=== PATIENT | female | born 1940 | race Caucasian/White ===

== ENCOUNTER → 2018-05-20 12:49 | Outpatient (CLI) | payer MEDICARE, SELFPAY | PROVIDERS: Family Provider Internal Medicine; PCP Internal Medicine; Referring Provider Internal Medicine Cardiovascular Disease; Visit Provider Internal Medicine Cardiovascular Disease | DX: I48.0 Paroxysmal atrial fibrillation (principal); I48.92 Unspecified atrial flutter | CPT/HCPCS: 93225; 93226 ==

== ENCOUNTER 2019-07-21 19:23 | Emergency (ER) | payer MEDICARE, SELFPAY ==
[2018-11-17 13:29] VITALS: BMI 18.0
[2019-07-21 19:24] VITALS: BP 150/99; PULSE 80; RESP 16; TEMP 36.3; O2SAT 97; BMI 19.4
--- NOTE | 2019-07-21 19:38 | ED.VIS.GEN ---
History of Present Illness Chief Complaint: Cellulitis Informant: Patient Onset: Days Context: Gradual Onset Timing: Continuous Current Severity: Mild Maximum Severity: Mild Narrative: The patient presents to the emergency department with cellulitis of her hughes. The patient states that she was scratched by her dog 2 weeks ago. She states the area has been red. She denies any fevers, chills, or pain. She states today, and started to have some scant drainage. She presented here for further evaluation. She denies any history of immunosuppression. She denies any other systemic complaints. Prior similar symptoms: No Recent Illness/Hospitalization: No Past Medical History - Allergies and Home Meds Allergies/Adverse Reactions: Allergies Iodine and Iodide Containing Produc Allergy (Severe, Verified 07/21/19 19:28) rash codeine Adverse Reaction (Unknown, Verified 07/21/19 19:28) Unknown Primary Care Physician: Bárbara Temple MD [Primary Care Provider] - 2 Days for wound check Prior records reviewed: Yes Past Medical History: - Surgical History: noncontributory, hysterectomy Smoking Status: Former smoker Review of Systems General: Denies: Chills, Fever, Sweats Eyes: Denies: Visual changes - bilaterally, Diplopia ENT: Denies: Rhinorrhea, Sore throat Cardiovascular: Denies: Chest pain, Palpitations Respiratory: Denies: Dyspnea, Cough, Dyspnea on exertion Gastrointestinal: Denies: Abdominal pain, Nausea, Vomiting, Diarrhea, Melena, Hematochezia Genitourinary: Denies: Dysuria, Hematuria, Frequency Musculoskeletal: Denies: Back pain, Extremity Pain Skin: Denies: Rash, Wounds Neurological: Denies: Headache, Weakness, Numbness Physical Exam Vital Signs/Narrative: Vital Signs Temp Pulse Resp BP Pulse Ox 07/21/19 19:24 97.4 F L 80 16 150/99 H 97 Inital Vital Signs reviewed: Yes General: Well nourished, Well developed, No Acute Distress Head: Normocephalic, Atraumatic Eyes: Perrl, EOMI ENT: Moist mucous membranes, No rhinorrhea Neck: Supple, Nontender Cardiovascular: Regular rate, Regular rhythm, No murmurs Respiratory: No distress, CTA bilaterally, Chest nontender Abdomen: Soft, Nontender, Nondistended, Normal bowel sounds Back: Nontender, Normal Inspection Extremities: No edema, Tenderness - Patient has a circumferential area of cellulitis with a central abscess on the left hughes. There is no streaking. There is no crepitus. Pulses are normal. Skin: Normal color, No rash Neurological: Alert, Oriented x3, Cranial nerves II-XII grossly intact, Normal Strength, Normal Sensation Psychological: Normal affect, Normal Mood Diagnostic/Tx/Re-eval - Medical Decision Making The patient did have some scant drainage from the wound on the lower extremity. There is some surrounding cellulitis. It was hard to determine if this was an abscess versus an infected hematoma. 3 cc of lidocaine with epinephrine were injected around the wound. I was able to remove the clotted material on top. There was hair and other debris within it. This was removed, the area below was evaluated. There was no evidence of abscess or retained foreign body. It was irrigated. My suspicion is this was likely an infected hematoma. I am going to place the patient on Augmentin. Dressing care was done. She is counseled to follow-up in 2 days for wound reevaluation. She is comfortable with this plan of care. Impression 1. Infected hematoma secondary to dog scratch ED Disposition - Plan for ED Patient: Instructions: ABSCESS, Incision and Drainage Prescriptions: Amox/Clavulanate Tablet [Augmentin Tablet] 875 mg PO Q12H #20 tab Prescription Printed Referrals: Bárbara Temple MD [Primary Care Provider] - 2 Days for wound check
[2019-07-21] MEDS: Amox/Clavulanate 875 MG Tablet PO (20:04)
[2019-07-21 20:09] VITALS: RESP 15
== END 2019-07-21 20:16 | disposition home or self-care (01) ==
PROVIDERS: Emergency Provider Emergency Medicine; Family Provider Internal Medicine; PCP Internal Medicine
DX: L03.116 Cellulitis of left lower limb (principal); S80.12XA Contusion of left lower leg, initial encounter; X58.XXXA Exposure to other specified factors, initial encounter; Y93.9 Activity, unspecified; Y92.9 Unspecified place or not applicable; Y99.9 Unspecified external cause status; Z88.8 Allergy status to other drugs, medicaments and biological substances; Z88.5 Allergy status to narcotic agent; Z87.891 Personal history of nicotine dependence; Z90.710 Acquired absence of both cervix and uterus
CPT/HCPCS: 10140; 10060; 99284; J7030

== ENCOUNTER 2019-08-14 12:47 | Inpatient (IN) | payer MEDICARE, SELFPAY ==
[2019-08-14] VITALS (9 sets, daily range): BP systolic 105–131; BP diastolic 64–93; PULSE 75–113; RESP 16–22; TEMP 36.4–38.9; O2SAT 95–98; BMI 20.9; BMI 21.0; BMI 18.2
--- NOTE | 2019-08-14 14:11 | RAD_ITS ---
STUDY: X-RAY CHEST REASON FOR EXAM: Female, 78 years old. Fever, general weakness TECHNIQUE: Single AP portable view of the chest. COMPARISON: Comparison is made with prior examination of October 31, 2013. FINDINGS: EKG electrodes are seen. Hyperinflation. The lungs are clear. There is no demonstrated pleural abnormality. Normal size heart. Normal mediastinum and nallely. Normal visualized pulmonary arteries. There is atherosclerotic calcification of the aortic arch with tortuosity. There is a levoscoliosis of the thoracic spine. Normal visualized ribs, clavicles, and shoulders. There is no demonstrated abnormality of the visualized soft tissue structures of the upper abdomen. RAD/Chest 1 View (Portable) IMPRESSION: Hyperinflation. The lungs are clear. Electronically Signed: Abel Warner, at 14:45 EST , Service support ,
--- NOTE | 2019-08-14 14:11 | EKG12_ITS ---
Test Reason : WEAKNESS Blood Pressure : / mmHG Vent. Rate : 101 BPM Atrial Rate : 394 BPM P-R Int : 000 ms QRS Dur : 074 ms QT Int : 318 ms P-R-T Axes : 000 079 076 degrees QTc Int : 412 ms Atrial flutter with variable A-V block Abnormal ECG Confirmed by HAO ROBINS, TANJA ([id number]), editorial writer SADAF DELUNA ([id number]) on 08/17/2019 10:22:25 AM Referred By: DONN Confirmed By:TANJA BUI MD
[2019-08-14] MEDS: 0.9% Normal Saline 1,000 ML 999 ML IV (14:20)
[2019-08-14] MEDS: Acetaminophen 325 MG Tablet 650 MG PO (15:12)
[2019-08-14 15:30] LABS: Absolute Lymphocyte Count 0.61 X10^3/uL (0.83-4.51); Absolute Neutrophil Count 8.3 X10^3/uL (2.0-7.7); Basophil# 0.06 X10^3/uL; Basophil% 0.6 % (0-1); Eosinophil# 0.34 X10^3/uL; Eosinophils% 3.3 % (0-5); Hematocrit 40.3 % (37-47); Hemoglobin 13.6 g/dL (12.0-15.0); Lymphocyte # 0.61 X10^3/ul (4.0); Lymphocyte % 5.8 % (19-41); Mean Corp Hgb Conc 33.7 g/dL (32-36); Mean Corpuscular Hgb 34.1 pg (27.0-32.0); Mean Platelet Vol. 12.5 fl (6.2-12.0); Monocyte# 1.11 X10^3/uL; Monocyte% 10.6 % (0-10); NRBC Flagged by Analyzer 0 % (0-5); Neutrophil # 8.28 X10^3/uL (2.7-7.7); Neutrophil % 79.2 % (47-70); POSITIVE COUNT YES; Platelet Count 96 K/mm3 (150-450); RBC Distribution Width CV 13.4 % (11.6-14.6); RBC Distribution Width SD 50.4 fl (35.1-43.9); Red Blood Count 3.99 M/mm3 (4.2-5.4); White Blood Count 10.5 K/mm3 (4.4-11.0)
[2019-08-14 15:34] LABS: Differential Indicated SCAN CRITERIA MET
[2019-08-14 15:37] LABS: Prothrombin Time (Protime)PT. 53.4 SECONDS (11.7-14.9)
[2019-08-14 15:38] LABS: Partial Thromboplast Time 51.4 Seconds (24.1-36.2)
[2019-08-14 15:42] LABS: ALB/GLOB Ratio 0.6 RATIO (0.9-2.4); AST(SGOT) 29 U/L (15-37); Alanine Aminotransfer ALT/SGPT 19 U/L (13-56); Albumin, Serum 2.4 g/dL (3.2-5.0); Alkaline Phosphatase 93 U/L (45-117); Anion Gap 5 (5-15); BUN 27 mg/dL (7-18); BUN/Creat Ratio 26.5 RATIO (10-20); Calcium,Total 8.5 mg/dL (8.5-10.1); Chloride 107 mmol/L (98-107); Creatinine, Serum 1.02 mg/dL (0.55-1.02); EST Glomerular Filtration Rate 55 mL/min (>60); Est Glom Filt Rate - Afr Amer 67 mL/min (>60); Estimated Creatinine Clearance 40.95 ml/min; Glucose 129 mg/dL (74-106); Protein, Total 6.4 g/dL (6.4-8.2); Sodium Level 137 mmol/L (136-145)
[2019-08-14 15:50] LABS: International Normalized Ratio 5.9
[2019-08-14 16:12] LABS: Platelet Estimate MOD DEC (ADEQ); Red Cell Morphology NORM C+C NORMAL (NORM C&C)
[2019-08-14 16:15] LABS: Lactic Acid 1.3 mmol/L (0.4-1.9)
[2019-08-14 16:48] LABS: Squamous Epithelial Cells - UA 0 SEEN /hpf (5-10)
[2019-08-14 16:53] LABS: Partial Thromboplast Time 51.5 Seconds (24.1-36.2)
[2019-08-14 16:57] LABS: Color, Urine Yellow (Yellow); Glucose, Dipstick Normal (Normal); Ketone-Dipstick Negative (Negative); Leukocyte Esterase-Dipstick 500 /ul (Negative); Nitrite-Dipstick Negative (Negative); Occult Blood-Urine 250 /ul (Negative); Protein-Dipstick 100 mg/dl (Negative); Urine Clarity Cloudy (Clear); Urine Urobilinogen 8 mg/dl (Normal)
[2019-08-14 16:57] LABS: International Normalized Ratio 6.2
[2019-08-14 17:08] LABS: Urine Bilirubin Dipstick 1 mg/dL (Negative)
--- NOTE | 2019-08-14 17:40 | ED.VISSUMM ---
- ER Visit Summary Date of Service: 08/14/19 Chief Complaint: Weakness History of Present Illness: The patient is a [address] Temple. reports that she has been weak the past couple at today's and today she was so weak that he was not able to get her up to stand or walk. Patient does report a subjective fever and chills that began today as well. She denies any sore throat or cough. No chest pain or trouble breathing. No abdominal pain. No nausea, vomiting, diarrhea. No dysuria or frequency. Physical Examination: Vitals: Stable. Afebrile. General: Well-nourished and well-developed. Head: Normocephalic atraumatic. Neck: Supple, no lymphadenopathy. No JVD. Nontender. Cardiovascular: Regular rate and rhythm. 2 out of 6 systolic murmur. Respiratory: No respiratory distress. Clear to auscultation bilaterally. Abdominal: Soft, nontender, nondistended, normal bowel sounds. No guarding, rebound, or peritoneal signs. Back: Nontender. Extremities: Nontender, no edema. Skin: Normal color, no rash. Neurologic: Alert and oriented ?3. Cranial nerves II through XII are intact. Normal strength and sensation. Psych: Normal affect. Test Results: EKG is atrial flutter at [address] changes. Troponin is negative. CBC shows platelets of 96, segmented neutrophils 79, lymphocytes of 6, monocytes of 11. Chem-7 shows a glucose 129 BUN 27. Lactic acid is 1.3. LFTs show total bili 1.6, albumin of 2.4. INR is 5.9 and PTT is 51.4. She is not on Coumadin. This was repeated as I thought it might be a lab error. Repeat INR is 6.2 and repeat PTT is 51.5. Chest x-ray shows no acute disease. UA shows leukocytes and blood. Emergency Department Course and Treatment: Patient is resting comfortably. She was given Tylenol p.o. Treatment Plan: Patient is on Xarelto. However, at this time I have no explanation for her coagulopathy. The concern for DIC or an acquired antibody was considered. I do not think that sending home in 78-year-old that is weak with a coagulopathy who is also on Xarelto and has thrombocytopenia is a good idea. She was discussed with Dr. Gramajo and will be admitted for further evaluation and treatment. Disposition: Admitted in improved condition. Impression: 1. Fever. 2. Coagulopathy. 3. Atrial flutter. 4. Xarelto use. 5. UTI. 6. Thrombocytopenia. This note was generated with [employer] software. It may contain incorrect words, spelling, and punctuation that were not noted in review of the chart prior to signing ED Disposition - Plan for ED Patient: Referrals: Bárbara Temple MD [Primary Care Provider] -
[2019-08-14 17:44] LABS: Bacteria 2+ /hpf (None Seen); Mucous, Urine 4+ /hpf (<or=2+)
[2019-08-14 17:45] LABS: Red Blood Cells-Urine 0-5 SEEN /hpf (0-5); White Blood Cells 25-50 SEEN /hpf (0-5)
--- NOTE | 2019-08-14 17:59 | NURSING ---
MED SURG OBS UTI, COAGULOPATHY MONICA
[2019-08-14] MEDS: Ceftriaxone 1 GM/50 ML BAG IV (18:14)
--- NOTE | 2019-08-14 18:29 | HP.PCM_ITS ---
History of Present Illness Date of Admission: 08/14/19 Chief Complaint: weakness The patient is a 78 year old F presents with start a history of weakness. Today, the patient's saw her and try to get her up but she was too weak to do so. He was concerned and brought patient to the emergency room. In the emergency room, patient had temperature of 38.9. Subsequently is down to 36 6. Patient did received a one-time dose of acetaminophen. Work-up otherwise was unremarkable with exception of an INR of 6.2. Patient is not on Coumadin but on rivaroxaban for atrial fibrillation. Patient has been losing weight chronically but she attributes that to having no taste states that she lost her sense of smell many years ago and just has not been eating much because she does not taste food and she does not have a desire to eat. [] Past Medical History Past Medical History (Chronic Problems): Chronic Problems (Last Updated 11/17/18 @ 13:33 by Maria Elena Land) Essential hypertension (Chronic) Paroxysmal atrial flutter (Chronic) Paroxysmal atrial fibrillation (Chronic) Medical History: Medical History (Last Reviewed 08/14/19 @ 18:31 by Jadon Gramajo DO) Essential hypertension (Chronic) I10 Paroxysmal atrial flutter (Chronic) I48.92 Paroxysmal atrial fibrillation (Chronic) I48.0 Cervical cancer C53.9 Allergies Iodine and Iodide Containing Produc Allergy (Severe, Verified 08/14/19 12:49) rash codeine Adverse Reaction (Unknown, Verified 08/14/19 12:49) Unknown Home Medications: Ambulatory Orders Medication Instructions Recorded Metoprolol Tartrate [Lopressor 100 mg PO BID 08/14/19 (beta fabio)] Rivaroxaban [Xarelto] 20 mg PO DAILY 08/14/19 Surgical History: Surgical History (Last Reviewed 08/14/19 @ 18:31 by Jadon Gramajo DO) History of hysterectomy Z90.710 Surgical History: noncontributory, hysterectomy Psychiatric History: No pertinent psych hx [employer] History: No pertinent [employer] history Smoking Status: Never smoker - *Family History Maternal Family History: Family History (Last Reviewed 08/14/19 @ 18:31 by Jadon Gramajo DO) Mother Congestive heart failure (CHF) Sister Atrial fibrillation Review of Systems Constitutional: Reports: Anorexia, Fever. Denies: Chills, Night Sweats Eyes: Denies: Blurred vision, Double vision HEENT: Denies: Head Aches, Sinus Congestion, Sinus Drainage Cardiovascular: Denies: Chest Pain, Palpitations Respiratory: Denies: Cough, Shortness of breath at rest, Sputum production Gastrointestinal: Denies: Abdominal Pain, Nausea, Vomiting Genitourinary: Denies: Dysuria Musculoskeletal: Denies: Joint Pain, Joint Tenderness Skin: Denies: Rash, Wounds Neurological: Denies: Numbness, Tingling, Focal weakness Endocrine: Reports: Change in Body Habitus Hematologic/ Lymphatic: Denies: Easy Bruising, Easy Bleeding, Hx of blood clot Comment: All review systems are otherwise negative except for as mentioned above and in HPI. VTE Information - Inpt Only VTE Present on Admission: No VTE Mechan Device Prophylaxis: None VTE Pharm Prophylaxis ordered?: No Reason prophylaxis not ordered:: Treatment Not Indicated - Physical Exam Vitals/I&O's: Vital Signs Temp Pulse Resp BP Pulse Ox 36.6 C 101 H 18 119/86 H 96 08/14/19 18:00 08/14/19 18:00 08/14/19 18:00 08/14/19 18:00 08/14/19 18:00 Oxygen Delivery Method Room Air Weight: 58.967 kg Body Mass Index (BMI) 20.9 Finger Stick Blood Glucose 94 Intake and Output for Last 24 Hours 08/12/19 08/13/19 08/14/19 23:59 23:59 23:59 Intake Total 1000 / 1000 Balance 1000 / 1000 General: Alert, Cooperative, No apparent distress HEENT: Atraumatic, Normocephalic Oral: Moist Mucosa, No Gingival or Mucosal Lesions/ Ulcerations Neck: No Nodes, Trachea Midline Lungs: Clear to auscultation, Normal air movement, No rhonchi, No wheeze, No rales Cardiovascular: Regular rate, Regular Rhythm, Normal S1, Normal S2 Abdomen: Bowel Sounds Present, Soft, Non Tender, Non-Distended, No Hepato- splenomegaly Extremities: No edema, No Calf Tenderness Skin: No rashes, No breakdown Musculoskeletal: No Tenderness to Palpation of Joints or Extremities, Cachexia, Muscle Wasting Psych/Mental Status: Normal Affect, Appropriate Laboratory Results 08/14/19 14:00: WBC 10.5, RBC 3.99 L, Hgb 13.6, Hct 40.3, MCV 101.0 H, MCH 34.1 H, MCHC 33.7, RDW Std Deviation 50.4 H, RDW Coeff of Mike 13.4, Plt Count 96 L, MPV 12.5 H, Immature Gran % (Auto) 0.500, Neut % (Auto) 79.2 H, Lymph % (Auto) 5.8 L, [place] % (Auto) 10.6 H, Eos % (Auto) 3.3, Baso % (Auto) 0.6, Absolute Neuts (auto) 8.3 H, Absolute Lymphs (auto) 0.61 L, Nucleated RBC % 0, Platelet Estimate MOD DEC, RBC Morphology NORM C+C 08/14/19 14:00: PT 53.4 H, INR 5.9 H*, APTT 51.4 H 08/14/19 14:00: Sodium 137, Potassium 4.0, Chloride 107, Carbon Dioxide 25.0, Anion Gap 5, BUN 27 H, Creatinine 1.02, Estim Creat Clear Calc 40.95, Est GFR (MDRD) Af Amer 67, Est GFR (MDRD) Non-Af 55 L, BUN/Creatinine Ratio 26.5 H, Glucose 129 H, Calcium 8.5, Total Bilirubin 1.60 H, AST 29, ALT 19, Alkaline Phosphatase 93, Troponin I < 0.015, Total Protein 6.4, Albumin 2.4 L, Globulin 4.0, Albumin/Globulin Ratio 0.6 L 08/14/19 15:05: Lactic Acid 1.3 08/14/19 16:21: PT 56.0 H, INR 6.2 H*, APTT 51.5 H 08/14/19 16:38: Urine Color Yellow, Urine Clarity Cloudy, Urine pH 5.0, Ur Specific [place] 1.020, Urine Protein 100 H, Urine Glucose (UA) Normal, Urine Ketones Negative, Urine Occult Blood 250 H, Urine Nitrite Negative, Urine Bilirubin 1 H, Urine Urobilinogen 8 H, Ur Leukocyte Esterase 500 H, Urine RBC 0- 5 SEEN, Urine WBC 25-50 SEEN, Ur Squamous Epith Cells 0 SEEN, Urine Bacteria 2+, Urine Mucus 4+ Clinical Impression(s) from Imaging Studies Chest X-Ray 08/14/19 14:11 IMPRESSION: Hyperinflation. The lungs are clear. Electronically Signed: Abel Warner, at 14:45 EST , Service support , Assessment/Plan 1. Debility * Unclear why patient is acutely weak but no clear identifiable reason at this point in time. * Will have physical and occupational therapy evaluate her to see if patient has any discharge needs. 2. Fever * Transient * Patient may have had an upper respiratory infection but the part of her fever being resolved may have been attributable to the acetaminophen that she had received that 1412 * Work-up has been unremarkable thus far. 3. Coagulopathy * Discussed with emergency room physician, I am not concerned about a disseminated intravascular coagulopathy related with sepsis does not feel that she has sepsis nor DIC. My feels more attributable to the patient's poor nutritional status as well as the novel anticoagulant that she is on. * I just recommend just holding off on the rivaroxaban for now and wait for INR to drift down to below 2. 4. Atrial fibrillation * Rate controlled but still in atrial fibrillation * Continue with metoprolol * Hold rivaroxaban for above. Once INR is less than 2 what I would recommend is starting apixaban 2.5 mg twice daily 5. Moderate malnutrition * Patient has lost weight unintentionally though she states because she just simply is not eating * Albumin is 2.4 * Ensure with meals * Consult nutrition for further assessment 6. VTE prophylaxis: Not indicated as patient is already anticoagulated 7. Advanced care planning: Patient wishes to be DNR Comfort Care arrest at this time. Code Visit OBSV E&M: 75302 Initial observation care L2
[2019-08-14] MEDS: Metoprolol Tartrate 100 MG Tablet PO (20:22)
[2019-08-14] MEDS: Ensure Clear 120 ML Liquid PO (20:24)
[2019-08-15 04:06] VITALS: BP 109/62; PULSE 93; RESP 18; TEMP 36.9; O2SAT 93
[2019-08-15 08:03] VITALS: BP 114/74; PULSE 109; RESP 18; TEMP 36.8; O2SAT 94
[2019-08-15 08:10] LABS: Thyroid Stim Hormone (TSH) 1.55 uIU/mL (0.358-3.74)
[2019-08-15] MEDS: Ensure Clear 120 ML Liquid PO ×4 (08:13→22:01)
[2019-08-15 10:27] VITALS: BP 114/74; PULSE 109
[2019-08-15] MEDS: Metoprolol Tartrate 100 MG Tablet PO ×2 (10:27→22:00)
--- NOTE | 2019-08-15 11:12 | PN_ITS ---
Subjective: Patient seen and examined. She was admitted with a complaint of weakness. She was brought in by her because she was too weak to even get out of bed. She had a fever of 38.9 ?C in the ED and this went down to 36.6 subsequently after she received Tylenol. INR was 6.2 on admission. Of note she was on Xarelto. Patient had been losing weight and states she is not been eating or drinking well because I think she is lost her sense of taste and smell. She was admitted and managed for general debility due to weakness and supratherapeutic INR. Patient seen and examined this morning. She had no complaints. She denies any fever chills, shortness of breath, abdominal pain, nausea or vomiting, tachycardia, or diarrhea. Review of systems otherwise negative. Labs and vitals reviewed. X-ray on admission showed hyperinflation of the lungs. Urinalysis was however positive for 2+ bacteria and leukocyte esterase of 500 though nitrites were negative. She did receive 1 dose of ceftriaxone in the ED. Delbert blood cultures are growing gram-negative rods in 2 out of 2 bottles. Vitals/I&O's: Vital Signs Temp Pulse Resp BP Pulse Ox 98.2 F 109 H 18 114/74 94 08/15/19 08:03 08/15/19 10:27 08/15/19 08:03 08/15/19 10:27 08/15/19 08:03 Oxygen Delivery Method Room Air Weight: 113 lb Body Mass Index (BMI) 18.2 Finger Stick Blood Glucose 94 Intake and Output for Last 24 Hours 08/13/19 08/14/19 08/15/19 23:59 23:59 23:59 Intake Total 1050 / 1050 Balance 1050 / 1050 General: Alert, Oriented x3, Cooperative HEENT: Atraumatic, PERRLA, EOMI, Normocephalic Oral: Moist Mucosa Neck: Supple, No JVD, Negative Carotid Bruits Lungs: Clear to auscultation, Normal air movement, No rhonchi, No wheeze, No rales Cardiovascular: Regular rate, Regular Rhythm, Normal S1, Normal S2, No murmurs Abdomen: Bowel Sounds Present, Soft, Non Tender, Non-Distended, No Hepato- splenomegaly Extremities: No clubbing, No cyanosis, No edema, Capillary Refill Less than 3 Seconds Skin: No rashes, No breakdown Musculoskeletal: No Tenderness to Palpation of Joints or Extremities Lymphatic: No Cervical, Supraclavicular, or Inguinal Adenopathy Neurological: Cranial nerves II-XII grossly intact, Neuro grossly intact, Motor Exam 5/5 strength throughout Psych/Mental Status: Normal Affect, Appropriate, Alert and oriented to time, place, person, mood and affect Microbiology Past 72 Hours 08/14/19 15:26 Blood Culture (Wb) - Right Forearm Blood Culture - Preliminary 08/14/19 15:05 Blood Culture (Wb) - Left Forearm Blood Culture - Preliminary Laboratory Results 08/14/19 14:00: WBC 10.5, RBC 3.99 L, Hgb 13.6, Hct 40.3, MCV 101.0 H, MCH 34.1 H, MCHC 33.7, RDW Std Deviation 50.4 H, RDW Coeff of Mike 13.4, Plt Count 96 L, MPV 12.5 H, Immature Gran % (Auto) 0.500, Neut % (Auto) 79.2 H, Lymph % (Auto) 5.8 L, [place] % (Auto) 10.6 H, Eos % (Auto) 3.3, Baso % (Auto) 0.6, Absolute Neuts (auto) 8.3 H, Absolute Lymphs (auto) 0.61 L, Nucleated RBC % 0, Platelet Estimate MOD DEC, RBC Morphology NORM C+C 08/14/19 14:00: PT 53.4 H, INR 5.9 H*, APTT 51.4 H 08/14/19 14:00: Sodium 137, Potassium 4.0, Chloride 107, Carbon Dioxide 25.0, Anion Gap 5, BUN 27 H, Creatinine 1.02, Estim Creat Clear Calc 40.95, Est GFR (MDRD) Af Amer 67, Est GFR (MDRD) Non-Af 55 L, BUN/Creatinine Ratio 26.5 H, Glucose 129 H, Calcium 8.5, Total Bilirubin 1.60 H, AST 29, ALT 19, Alkaline Phosphatase 93, Troponin I < 0.015, Total Protein 6.4, Albumin 2.4 L, Globulin 4.0, Albumin/Globulin Ratio 0.6 L 08/14/19 15:05: Lactic Acid 1.3 08/14/19 16:21: PT 56.0 H, INR 6.2 H*, APTT 51.5 H 08/14/19 16:38: Urine Color Yellow, Urine Clarity Cloudy, Urine pH 5.0, Ur Specific [place] 1.020, Urine Protein 100 H, Urine Glucose (UA) Normal, Urine Ketones Negative, Urine Occult Blood 250 H, Urine Nitrite Negative, Urine Bilirubin 1 H, Urine Urobilinogen 8 H, Ur Leukocyte Esterase 500 H, Urine RBC 0- 5 SEEN, Urine WBC 25-50 SEEN, Ur Squamous Epith Cells 0 SEEN, Urine Bacteria 2+, Urine Mucus 4+ 08/15/19 06:49: PT 39.0 H, INR 4.0 H* 08/15/19 06:49: TSH 1.55 08/15/19 06:49: Vitamin D 25-Hydroxy Pending Diagnostic Data Chest X-Ray 08/14/19 14:11 IMPRESSION: Hyperinflation. The lungs are clear. Electronically Signed: Abel Alana, at 14:45 EST , Service support , Current Medications Acetaminophen (Tylenol) 650 mg PO Q6H PRN PRN PRN Reason: Pain Score 1-3/Temp > 100.7 F Dextrose (D50w Syringe) 0 gm IV X1 PRN; Protocol PRN Reason: Hypoglycemia Glucagon () 1 mg IM .X1 PRN PRN Reason: Hypoglycemia Metoprolol Tartrate (Lopressor (Beta Alcon)) 100 mg PO BID [facility] Last Admin: 08/15/19 10:27 Dose: 100 mg Documented by: Nutritional Formula (Lactose Free) (Ensure Clear) 120 ml PO 4X/DAY [facility] Last Admin: 08/15/19 08:13 Dose: 120 ml Documented by: Ondansetron HCl (Zofran) 4 mg IV Q8H PRN PRN PRN Reason: NAUSEA/VOMITING Sodium Chloride () 10 - 40 ml IV UD PRN PRN Reason: SALINE FLUSH STROKE Vital Signs/Narrative: Vital Signs Temp Pulse Resp BP Pulse Ox 08/15/19 10:27 109 H 114/74 08/15/19 08:03 98.2 F 109 H 18 114/74 94 Medical Necessity - Tobacco Use Smoking Status: Never smoker Assessment/Plan 1. UTI with bacteremia * UA on admission showed 2+ bacteria. Received IV ceftriaxone once in the ED * blood cultures growing gram negative rods (2/2 bottles) * she did have fever on admission, but per admitting note, this was thought to be due to an URTI patient may have had prior to admission * will start patient on IV ceftriaxone for UTI, and await speciation of gram negative rods. * urine culture pending. * hydrate gently with IVF * 2. Debility due to UTI * Came in because of acute weakness and unable to get out of bed. This likely the UTI may be contributing to this. * PT OT consulted. * 3. Elevated INR * INR was 5.9 on admission and peaked at 6.2 but is down to 4 this morning. There is no evidence of bleeding. * Not on coumadin. On Xarelto which is currently on hold. * 4. A. fib: * Currently rate controlled, though heart rate did go up briefly to around 109 today. On metoprolol. Xarelto on hold as an 3. 5. Moderate malnutrition: BMI is 18.2. Albumin was 2.4 on admission. Nutrition on board. Ensure supplements. DVT prophylaxis: INR is supratherapeutic. Therefore not indicated. CODE STATUS: DNR CCA. Code Visit OBSV E&M: 87233 Subsequent observation care L2
[2019-08-15] MEDS: 0.9% Saline Lock 10 ML Syringe IV (12:24)
[2019-08-15] MEDS: Ceftriaxone 1 GM/50 ML BAG IV ×2 (12:24→22:00)
[2019-08-15 14:00] VITALS: BP 134/81; PULSE 97; RESP 18; TEMP 37; O2SAT 96
[2019-08-15] MEDS: 0.9% Normal Saline 1,000 ML 100 ML IV (19:01)
[2019-08-15 20:01] VITALS: BP 119/71; PULSE 96; RESP 18; TEMP 36.6; O2SAT 97
[2019-08-15 22:00] VITALS: BP 119/71; PULSE 96
[2019-08-16 02:06] VITALS: BP 109/67; PULSE 97; RESP 18; TEMP 36.9; O2SAT 95
[2019-08-16] MEDS: 0.9% Normal Saline 1,000 ML 100 ML IV (05:49)
[2019-08-16 06:46] LABS: Absolute Lymphocyte Count 1.45 X10^3/uL (0.83-4.51); Absolute Neutrophil Count 5.3 X10^3/uL (2.0-7.7); Basophil# 0.04 X10^3/uL; Basophil% 0.5 % (0-1); Eosinophil# 0.11 X10^3/uL; Eosinophils% 1.4 % (0-5); Hematocrit 37.9 % (37-47); Hemoglobin 12.6 g/dL (12.0-15.0); Lymphocyte # 1.45 X10^3/ul (4.0); Lymphocyte % 17.9 % (19-41); Mean Corp Hgb Conc 33.2 g/dL (32-36); Mean Corpuscular Hgb 33.5 pg (27.0-32.0); Mean Corpuscular Volume 100.8 fL (81-99); Mean Platelet Vol. 12.5 fl (6.2-12.0); Monocyte# 1.16 X10^3/uL; Monocyte% 14.3 % (0-10); NRBC Flagged by Analyzer 0 % (0-5); Neutrophil # 5.31 X10^3/uL (2.7-7.7); Neutrophil % 65.4 % (47-70); Platelet Count 104 K/mm3 (150-450); RBC Distribution Width CV 13.6 % (11.6-14.6); Red Blood Count 3.76 M/mm3 (4.2-5.4); White Blood Count 8.1 K/mm3 (4.4-11.0)
[2019-08-16 06:56] LABS: International Normalized Ratio 1.8; Prothrombin Time (Protime)PT. 21.1 SECONDS (11.7-14.9)
[2019-08-16 07:09] LABS: Anion Gap 6 (5-15); BUN 24 mg/dL (7-18); BUN/Creat Ratio 31.6 RATIO (10-20); Calcium,Total 8.1 mg/dL (8.5-10.1); Chloride 107 mmol/L (98-107); Creatinine, Serum 0.76 mg/dL (0.55-1.02); EST Glomerular Filtration Rate 78 mL/min (>60); Est Glom Filt Rate - Afr Amer 94 mL/min (>60); Estimated Creatinine Clearance 36.34 ml/min; Glucose 97 mg/dL (74-106); Potassium 3.3 mmol/L (3.5-5.1); Sodium Level 140 mmol/L (136-145)
[2019-08-16 07:52] VITALS: BP 137/93; PULSE 95; RESP 18; TEMP 36.4; O2SAT 98
[2019-08-16 08:01] VITALS: BP 137/93; PULSE 95
[2019-08-16] MEDS: Metoprolol Tartrate 100 MG Tablet PO ×2 (08:01→20:41)
[2019-08-16] MEDS: Ensure Clear 120 ML Liquid PO ×3 (08:02→19:00)
[2019-08-16] MEDS: Ceftriaxone 1 GM/50 ML BAG IV ×2 (08:59→22:45)
[2019-08-16 14:00] VITALS: BP 133/74; PULSE 96; RESP 18; TEMP 36.9; O2SAT 96
--- NOTE | 2019-08-16 14:56 | NURSING ---
DR MAY CALLED REQUESTING TO AMBULATE PT & SEE HOW SHE DOES FOR POSSIBLE DISCHARGE TODAY. PT AMBULATED IN [place], SATING SHE FELT UNSTEADY & SLIGHTLY SOB WITH ACTIVITY. WILL NOTIFY OF SAME.
--- NOTE | 2019-08-16 15:15 | PCM.PN.HOSP ---
Subjective: Seen and examined. She says she felt much better today. She denied any fever or chills, palpitations or dizziness, chest pain, diarrhea vomiting. Review of symptoms otherwise negative. Plan was to discharge patient home today but after ambulating her, patient says she felt short of breath and unsteady on her feet. Plan is therefore to defer discharge until possibly tomorrow when patient is feeling better more stable on her feet and to get therapy recommendations. Vitals/I&O's: Vital Signs Temp Pulse Resp BP Pulse Ox 98.5 F 96 18 133/74 H 96 08/16/19 14:00 08/16/19 14:00 08/16/19 14:00 08/16/19 14:00 08/16/19 14:00 Oxygen Delivery Method Room Air Weight: 113 lb 1.554 oz Body Mass Index (BMI) 18.2 Finger Stick Blood Glucose 94 Intake and Output for Last 24 Hours 08/14/19 08/15/19 08/16/19 23:59 23:59 23:59 Intake Total 1050 / 1050 881.67 / 1181.67 1728.33 / 1728.33 Output Total 100 / 100 700 / 700 Balance 1050 / 1050 781.67 / 1081.67 1028.33 / 1028.33 General: Alert, Oriented x3, Cooperative HEENT: Atraumatic, PERRLA, EOMI, Normocephalic Oral: Moist Mucosa Neck: Supple, No JVD, Negative Carotid Bruits Lungs: Clear to auscultation, Normal air movement, No rhonchi, No wheeze, No rales Cardiovascular: Regular rate, Regular Rhythm, Normal S1, Normal S2, No murmurs Abdomen: Bowel Sounds Present, Soft, Non Tender, Non-Distended, No Hepato-splenomegaly Extremities: No clubbing, No cyanosis, No edema, Capillary Refill Less than 3 Seconds Skin: No rashes, No breakdown Musculoskeletal: No Tenderness to Palpation of Joints or Extremities Lymphatic: No Cervical, Supraclavicular, or Inguinal Adenopathy Neurological: Cranial nerves II-XII grossly intact, Neuro grossly intact, Motor Exam 5/5 strength throughout Psych/Mental Status: Normal Affect, Appropriate, Alert and oriented to time, place, person, mood and affect Microbiology Past 72 Hours 08/14/19 16:38 Urine, Clean Catch Urine Culture - Preliminary Escherichia coli Gram positive addis 08/14/19 15:26 Blood Culture (Wb) - Right Forearm Blood Culture - Final Presumptive E. coli 08/14/19 15:05 Blood Culture (Wb) - Left Forearm Blood Culture - Final Escherichia coli Laboratory Results 08/16/19 06:20: WBC 8.1, RBC 3.76 L, Hgb 12.6, Hct 37.9, MCV 100.8 H, MCH 33.5 H, MCHC 33.2, RDW Std Deviation 51.0 H, RDW Coeff of Mike 13.6, Plt Count 104 L, MPV 12.5 H, Immature Gran % (Auto) 0.500, Neut % (Auto) 65.4, Lymph % (Auto) 17.9 L, Cedar % (Auto) 14.3 H, Eos % (Auto) 1.4, Baso % (Auto) 0.5, Absolute Neuts (auto) 5.3, Absolute Lymphs (auto) 1.45, Nucleated RBC % 0 08/16/19 06:20: PT 21.1 H, INR 1.8 08/16/19 06:20: Sodium 140, Potassium 3.3 L, Chloride 107, Carbon Dioxide 27.0, Anion Gap 6, BUN 24 H, Creatinine 0.76, Estim Creat Clear Calc 36.34, Est GFR (MDRD) Af Amer 94, Est GFR (MDRD) Non-Af 78, BUN/Creatinine Ratio 31.6 H, Glucose 97, Calcium 8.1 L Current Medications Acetaminophen (Tylenol) 650 mg PO Q6H PRN PRN PRN Reason: Pain Score 1-3/Temp > 100.7 F Dextrose (D50w Syringe) 0 gm IV X1 PRN; Protocol PRN Reason: Hypoglycemia Glucagon () 1 mg IM .X1 PRN PRN Reason: Hypoglycemia Ceftriaxone Sodium (Rocephin) 1 gm in 50 mls @ 100 mls/hr IV Q12 [facility] Last Infusion: 08/16/19 09:29 Dose: Infused Documented by: Metoprolol Tartrate (Lopressor (Beta Alcon)) 100 mg PO BID [facility] Last Admin: 08/16/19 08:01 Dose: 100 mg Documented by: Nutritional Formula (Lactose Free) (Ensure Clear) 120 ml PO 4X/DAY [facility] Last Admin: 08/16/19 14:43 Dose: 120 ml Documented by: Ondansetron HCl (Zofran) 4 mg IV Q8H PRN PRN PRN Reason: NAUSEA/VOMITING Sodium Chloride () 10 - 40 ml IV UD PRN PRN Reason: SALINE FLUSH Last Admin: 08/15/19 12:24 Dose: 10 ml Documented by: STROKE Vital Signs/Narrative: Vital Signs Temp Pulse Resp BP Pulse Ox 08/16/19 14:00 98.5 F 96 18 133/74 H 96 Medical Necessity - Tobacco Use Smoking Status: Never smoker Assessment/Plan 1. UTI with bacteremia UA on admission showed 2+ bacteria. Received IV ceftriaxone once in the ED blood cultures growing E coli, urine culture also growing E coli on IV ceftriaxone 2. Debility due to UTI and advanced age Came in because of acute weakness and unable to get out of bed. This likely the UTI may be contributing to this. PT OT on board. Patient states she is feeling weak and unsteady on her feet today. 3. Elevated INR INR was 5.9 on admission and peaked at 6.2 now down to 4 and is down to 1.8 today. Was on Xarelto. Xarelto can cause elevated INR though it is rare. , And the patient started on p.o. Eliquis as that has not caused INR elevation as much as Xarelto dose. 4. A. fib: Currently rate controlled, On metoprolol. Xarelto on admission on account of elevated INR. INR is down to 1.8 today. will start PO eliquis 2.5mg bid for stroke prophylaxis tomorrow 5. Moderate malnutrition: BMI is 18.2. Albumin was 2.4 on admission. Nutrition on board. Ensure supplements. DVT prophylaxis:INR down to 1.8 today. Will start on eliquis 2.5mg bid. CODE STATUS: DNR [facility]. Disposition: For discharge home tomorrow. Code Visit Inpatient E&M: 92684 Subs Hosp L2
[2019-08-16 20:33] VITALS: BP 129/62; PULSE 81; RESP 16; TEMP 37.1; O2SAT 96
[2019-08-16 20:41] VITALS: BP 129/62; PULSE 81
[2019-08-16] MEDS: APIXABAN 2.5 MG TABLET PO (20:42)
[2019-08-16] MEDS: 0.9% Saline Lock 10 ML Syringe IV (20:42)
[2019-08-17 02:35] VITALS: BP 117/69; PULSE 79; RESP 16; TEMP 36.6; O2SAT 94
[2019-08-17] MEDS: 0.9% Saline Lock 10 ML Syringe IV ×2 (03:55→10:00)
[2019-08-17 05:41] LABS: Absolute Lymphocyte Count 1.61 X10^3/uL (0.83-4.51); Absolute Neutrophil Count 4.8 X10^3/uL (2.0-7.7); Basophil# 0.04 X10^3/uL; Basophil% 0.5 % (0-1); Eosinophil# 0.23 X10^3/uL; Hematocrit 39.9 % (37-47); Hemoglobin 13.3 g/dL (12.0-15.0); Lymphocyte # 1.61 X10^3/ul (4.0); Mean Corp Hgb Conc 33.3 g/dL (32-36); Mean Platelet Vol. 11.8 fl (6.2-12.0); Monocyte# 0.92 X10^3/uL; NRBC Flagged by Analyzer 0 % (0-5); Neutrophil # 4.77 X10^3/uL (2.7-7.7); Neutrophil % 62.5 % (47-70); Platelet Count 143 K/mm3 (150-450); RBC Distribution Width CV 13.5 % (11.6-14.6); RBC Distribution Width SD 49.9 fl (35.1-43.9); Red Blood Count 4.03 M/mm3 (4.2-5.4); White Blood Count 7.7 K/mm3 (4.4-11.0)
[2019-08-17 05:46] LABS: International Normalized Ratio 1.3; Prothrombin Time (Protime)PT. 16.4 SECONDS (11.7-14.9)
[2019-08-17 05:50] LABS: Anion Gap 4 (5-15); BUN 16 mg/dL (7-18); BUN/Creat Ratio 23.1 RATIO (10-20); Calcium,Total 8.4 mg/dL (8.5-10.1); Chloride 108 mmol/L (98-107); Creatinine, Serum 0.69 mg/dL (0.55-1.02); EST Glomerular Filtration Rate 86 mL/min (>60); Est Glom Filt Rate - Afr Amer 105 mL/min (>60); Estimated Creatinine Clearance 36.34 ml/min; Glucose 96 mg/dL (74-106); Potassium 3.6 mmol/L (3.5-5.1); Sodium Level 138 mmol/L (136-145)
[2019-08-17 08:35] VITALS: BP 132/80; PULSE 84; RESP 16; TEMP 36.8; O2SAT 97
[2019-08-17 09:29] VITALS: PULSE 84
[2019-08-17] MEDS: APIXABAN 2.5 MG TABLET PO (09:29)
[2019-08-17] MEDS: Metoprolol Tartrate 100 MG Tablet PO (09:29)
[2019-08-17 09:36] LABS: Vitamin D,25 Hydroxy 31.5 ng/mL (29.95-100.01)
[2019-08-17] MEDS: Ceftriaxone 1 GM/50 ML BAG IV (10:00)
--- NOTE | 2019-08-17 11:45 | DCINST_ITS ---
You will use the following diet at home:: Cardiac Your food should be the consistency of: Regular Discharge Activity: May Not Drive Call your doctor if you observe: Fever of 101 or Higher, Coldness, Increased Pain, Numbness or Tingling, Inability to have a bowel movement, Using more than one pad per hour, Shortness of breath, Dizziness, Fainting spells, Swelling in the ankles, Chest pain, Prolonged hiccoughing, Increased palpitations (irregular heartbeat), Calf discomfort, Uncontrolled pain Allergies/Adverse Reactions: Allergies Iodine and Iodide Containing Produc Allergy (Severe, Verified 08/14/19 12:49) rash codeine Adverse Reaction (Unknown, Verified 08/14/19 12:49) Unknown Medications to take at Discharge Metoprolol Tartrate [Lopressor (beta fabio)] 100 mg PO BID 08/14/19 Apixaban [Eliquis] 2.5 mg PO BID #60 tab 08/17/19 Ciprofloxacin [Cipro] 500 mg PO BID #14 tab 08/17/19 The following prescriptions were given: Ciprofloxacin [Cipro] 500 mg PO BID #14 tab Transmission Status: Pending to [facility] Apixaban [Eliquis] 2.5 mg PO BID #60 tab Transmission Status: Pending to [facility] Primary Care Physician: Bárbara Temple MD [Primary Care Provider] - Please follow up with your Primary Care Physician in: in 2 week Test Results: Test results from this visit will be discussed in further detail at your follow- up appointment, if applicable. Please Follow Up With: Jesse East MD When: prn if recurrent UTI
[2019-08-17 12:00] VITALS: BP 115/65; PULSE 81; RESP 16; TEMP 36.8; O2SAT 96
--- NOTE | 2019-08-17 12:00 | CASEMGMT ---
RN CM Face to Face with patient for initial transition planning/care coordination assessment. RN CM introduced self and role at [facility]. Patient lying in bed, alert and oriented, at bedside. Patient willing to participate in assessment and is able to answer all questions appropriately. Care providers, pharmacy, and demographics verified. Patient wishes to discharge home, denies need for home health at this time. Patient states she has no further needs or concerns at this time. CM to follow for discharge planning needs that may arise. PCP: Windy Specialists: None Preferred Pharmacy: [facility]. Would like [facility] retail at discharge. Insurance: [email or web address] Prescription Benefit: yes Living Will/HPOA: yes, Rubia Da Silva LNOK: Living Arrangements: Patient lives with in 1 story home with ramp to enter. Transportation: self/ DME/HHC: Patient has shower chair, raised toilet, cane, grab bars, and rollator at home. Patient denies HHC at discharge. Disposition Plan: Patient to discharge home with family support and follow-up plans in place. Moni RAMOS, RN, CM
--- NOTE | 2019-08-17 12:01 | PCM.DC.SUM ---
Discharge Date and Diagnosis Date of Admission: 08/14/19 Date of Discharge: 08/17/19 - Secondary Discharge Diagnosis Chronic Problems (Last Reviewed 08/14/19 @ 18:31 by Jadon Gramajo DO) Essential hypertension (Chronic) Paroxysmal atrial flutter (Chronic) Paroxysmal atrial fibrillation (Chronic) Hospital Course and Treatment Operations: None Summary of Care Provided: The patient is a 78 year old F with history of hypertension proximal A. fib on Xarelto was admitted with generalized weakness. In ER, temperature was 102 Fahrenheit/38.9 ?C. Patient had acetaminophen. Patient was admitted on MedSurg floor. INR was found 6.2 therefore Xarelto was discontinued. [] 1. E. coli bacteremia from E. coli UTI: Patient had mild urinary irritation/burning micturition along with increased frequency and urgency. She denies history of recurrent UTI, recent urology procedure, obstructive uropathy history including stone or stricture or tumor. UA was positive of pyuria 25-50 cells, 2+ bacteria and LE 500. Nitrite negative. Patient was started on antibiotic IV ceftriaxone. Urine culture showed E. coli more than 100,000 and corynebacterium more than 100,000; most likely commensal. Urine culture is negative of ESBL. Patient is discharged on Cipro 500 mg twice daily for 7 more days. Discussed with ID. It seems most likely corynebacterium is skin isolate but ceftriaxone for 3 days have is good enough and no need for further treatment. 2. Debility due to UTI and advanced age: Patient had acute weakness unable to get out of bed most likely from sepsis from E. coli. PT and OT was consulted. Came in because of acute weakness and unable to get out of bed. This likely the UTI may be contributing to this. 3. Elevated INR INR was 5.9 on admission and peaked at 6.2 now down to 4 and is down to 1.8 today. Was on Xarelto. Xarelto can cause elevated INR though it is rare. Started on Eliquis 2.5 mg twice daily when INR 1.3. 4. Paroxysmal A. fib: Currently rate controlled, On metoprolol. 5. Moderate malnutrition: BMI is 18.2. Albumin was 2.4 on admission. Nutrition on board. Ensure supplements. DVT prophylaxis: On Eliquis Clinical Impression(s) from Imaging Studies Chest X-Ray 08/14/19 14:11 IMPRESSION: Hyperinflation. The lungs are clear. Microbiology Past 72 Hours 08/14/19 16:38 Urine, Clean Catch Urine Culture - Final Escherichia coli Corynebacterium amycolatum 08/14/19 15:26 Blood Culture (Wb) - Right Forearm Blood Culture - Final Presumptive E. coli 08/14/19 15:05 Blood Culture (Wb) - Left Forearm Blood Culture - Final Escherichia coli Laboratory Results 08/15/19 06:49: Vitamin D 25-Hydroxy 31.5 08/17/19 05:20: WBC 7.7, RBC 4.03 L, Hgb 13.3, Hct 39.9, MCV 99.0, MCH 33.0 H, MCHC 33.3, RDW Std Deviation 49.9 H, RDW Coeff of Mike 13.5, Plt Count 143 L, MPV 11.8, Immature Gran % (Auto) 1.000 H, Neut % (Auto) 62.5, Lymph % (Auto) 21.0, Mclennan % (Auto) 12.0 H, Eos % (Auto) 3.0, Baso % (Auto) 0.5, Absolute Neuts (auto) 4.8, Absolute Lymphs (auto) 1.61, Nucleated RBC % 0 08/17/19 05:20: PT 16.4 H, INR 1.3 08/17/19 05:20: Sodium 138, Potassium 3.6, Chloride 108 H, Carbon Dioxide 26.0, Anion Gap 4 L, BUN 16, Creatinine 0.69, Estim Creat Clear Calc 36.34, Est GFR (MDRD) Af Amer 105, Est GFR (MDRD) Non-Af 86, BUN/Creatinine Ratio 23.1 H, Glucose 96, Calcium 8.4 L Subjective: Patient was admitted with fever 102 Fahrenheit on 08/14/2019. Blood culture and urine culture positive of E. coli. No high-grade fever more than 48 hours. - Physical Exam Vitals/I&O's: Vital Signs Temp Pulse Resp BP Pulse Ox 98.2 F 84 16 132/80 H 97 08/17/19 08:35 08/17/19 09:29 08/17/19 08:35 08/17/19 08:35 08/17/19 08:35 Oxygen Delivery Method Room Air Weight: 113 lb 1.554 oz Body Mass Index (BMI) 18.2 Finger Stick Blood Glucose 94 Intake and Output for Last 24 Hours 08/15/19 08/16/19 08/17/19 23:59 23:59 23:59 Intake Total 881.67 / 1181.67 3198.33 / 3548.33 750.5 / 750.5 Output Total 100 / 100 900 / 1300 400 / 400 Balance 781.67 / 1081.67 2298.33 / 2248.33 350.5 / 350.5 General: Alert, Oriented x3, Cooperative HEENT: Atraumatic, PERRLA, EOMI, Normocephalic Neck: Supple, No JVD, Negative Carotid Bruits Lungs: Clear to auscultation, Normal air movement, No rhonchi, No wheeze, No rales Cardiovascular: Regular rate, Regular Rhythm, Normal S1, Normal S2, No murmurs Abdomen: Bowel Sounds Present, Soft, Non Tender, Non-Distended Extremities: No edema, Capillary Refill Less than 3 Seconds Skin: No rashes, No breakdown Musculoskeletal: No Tenderness to Palpation of Joints or Extremities, Arthritic Changes Neurological: Cranial nerves II-XII grossly intact, Deep Tendon Reflexes 2+/4 and Symmetrical, Neuro grossly intact Psych/Mental Status: Normal Affect, Appropriate Microbiology Past 72 Hours 08/14/19 16:38 Urine, Clean Catch Urine Culture - Final Escherichia coli Corynebacterium amycolatum 08/14/19 15:26 Blood Culture (Wb) - Right Forearm Blood Culture - Final Presumptive E. coli 08/14/19 15:05 Blood Culture (Wb) - Left Forearm Blood Culture - Final Escherichia coli Laboratory Results 08/15/19 06:49: Vitamin D 25-Hydroxy 31.5 08/17/19 05:20: WBC 7.7, RBC 4.03 L, Hgb 13.3, Hct 39.9, MCV 99.0, MCH 33.0 H, MCHC 33.3, RDW Std Deviation 49.9 H, RDW Coeff of Mike 13.5, Plt Count 143 L, MPV 11.8, Immature Gran % (Auto) 1.000 H, Neut % (Auto) 62.5, Lymph % (Auto) 21.0, Mclennan % (Auto) 12.0 H, Eos % (Auto) 3.0, Baso % (Auto) 0.5, Absolute Neuts (auto) 4.8, Absolute Lymphs (auto) 1.61, Nucleated RBC % 0 08/17/19 05:20: PT 16.4 H, INR 1.3 08/17/19 05:20: Sodium 138, Potassium 3.6, Chloride 108 H, Carbon Dioxide 26.0, Anion Gap 4 L, BUN 16, Creatinine 0.69, Estim Creat Clear Calc 36.34, Est GFR (MDRD) Af Amer 105, Est GFR (MDRD) Non-Af 86, BUN/Creatinine Ratio 23.1 H, Glucose 96, Calcium 8.4 L Current Medications Acetaminophen (Tylenol) 650 mg PO Q6H PRN PRN PRN Reason: Pain Score 1-3/Temp > 100.7 F Apixaban (Eliquis) 2.5 mg PO BID [facility] Last Admin: 08/17/19 09:29 Dose: 2.5 mg Documented by: Dextrose (D50w Syringe) 0 gm IV X1 PRN; Protocol PRN Reason: Hypoglycemia Glucagon () 1 mg IM .X1 PRN PRN Reason: Hypoglycemia Ceftriaxone Sodium (Rocephin) 1 gm in 50 mls @ 100 mls/hr IV Q12 [facility] Last Infusion: 08/17/19 10:30 Dose: Infused Documented by: Sodium Chloride () 250 mls @ 15 mls/hr IV .[id number] PRN PRN Reason: Saline Flush Last Infusion: 08/17/19 10:30 Dose: 15 mls/hr Documented by: Sodium Chloride () 250 mls @ 15 mls/hr IV .[id number] PRN PRN Reason: Additional IVPB Infusion Metoprolol Tartrate (Lopressor (Beta Alcon)) 100 mg PO BID [facility] Last Admin: 08/17/19 09:29 Dose: 100 mg Documented by: Nutritional Formula (Lactose Free) (Ensure Clear) 120 ml PO 4X/DAY [facility] Last Admin: 08/17/19 09:28 Dose: Not Given Documented by: Ondansetron HCl (Zofran) 4 mg IV Q8H PRN PRN PRN Reason: NAUSEA/VOMITING Sodium Chloride () 10 - 40 ml IV UD PRN PRN Reason: SALINE FLUSH Last Admin: 08/17/19 10:00 Dose: 10 ml Documented by: Home Medications: Medications to take at Discharge Metoprolol Tartrate [Lopressor (beta alcon)] 100 mg PO BID 08/14/19 Apixaban [Eliquis] 2.5 mg PO BID #60 tab 08/17/19 Ciprofloxacin [Cipro] 500 mg PO BID #14 tab 08/17/19 Following Prescrptions Were Given to Patient: Ciprofloxacin [Cipro] 500 mg PO BID #14 tab Transmission Status: Received by [facility] Apixaban [Eliquis] 2.5 mg PO BID #60 tab Transmission Status: Received by [facility] Primary Care Physician: Bárbara Temple MD [Primary Care Provider] - Medical Necessity - Tobacco Use Smoking Status: Never smoker Meaningful Use Info Meaningful Use Diagnoses (Choose all that apply): None applicable Code Visit Inpatient E&M: 21450 Disch Hosp
== END 2019-08-17 14:19 | disposition home or self-care (01) | DRG 872 ==
LOC: ED 13:58 → MS3 18:24
PROVIDERS: Student in an Organized Health Care Education/Training Program; Emergency Provider Emergency Medicine; Family Provider Internal Medicine; PCP Internal Medicine; Visit Provider Internal Medicine
DX: A41.51 Sepsis due to Escherichia coli [E. coli] (principal); N39.0 Urinary tract infection, site not specified; B96.20 Unspecified Escherichia coli [E. coli] as the cause of diseases classified elsewhere; E44.0 Moderate protein-calorie malnutrition; Z68.1 Body mass index [BMI] 19.9 or less, adult; R79.1 Abnormal coagulation profile; I48.0 Paroxysmal atrial fibrillation; I48.92 Unspecified atrial flutter; D69.6 Thrombocytopenia, unspecified; I10 Essential (primary) hypertension; Z79.01 Long term (current) use of anticoagulants; Z79.899 Other long term (current) drug therapy
CPT/HCPCS: 36415; 71045; 80048; 80053; 81001; 82306; 83605; 84443; 84484; 85025; 85610; 85730; 87040; 87077; 87086; 87088; 87186; 93005; 97110; 97162; 97166; 97535; 97802; 99285; J7030; J7050; A4216

== ENCOUNTER 2021-10-06 22:53 | Inpatient (IN) | payer MEDICARE, SELFPAY ==
--- NOTE | 2021-10-06 00:30 | RAD_ITS ---
EXAM: XR CHEST, 1 VIEW CLINICAL INDICATION: chest pain TECHNIQUE: Frontal view of the chest. This report was created using [employer] report generation technology. COMPARISON: 08/14/2019 FINDINGS: LUNGS AND PLEURAL SPACES: No consolidation. No pleural effusion or pneumothorax. HEART: Enlarged cardiac silhouette concerning for cardiomegaly and/or pericardial effusion. MEDIASTINUM: Central airways and mediastinal contour are unremarkable. BONES/JOINTS: Unremarkable. SOFT TISSUES: Unremarkable. VASCULATURE: Ectatic thoracic aortic arch containing atherosclerotic calcifications. RAD/Chest 1 View (Portable) IMPRESSION: 1. Cardiomegaly and/or pericardial effusion. 2. No pneumonia. 3. No other acute disease. Electronically Signed: Troy Callahan MD at 1:21 EST ,
[2021-10-06 22:54] VITALS: BP 138/81; PULSE 124; RESP 29; TEMP 38.1; O2SAT 95; BMI 18.4
--- NOTE | 2021-10-06 23:15 | EKG12_ITS ---
Test Reason : DYSRHYTHMIA Blood Pressure : / mmHG Vent. Rate : 122 BPM Atrial Rate : 468 BPM P-R Int : 000 ms QRS Dur : 088 ms QT Int : 326 ms P-R-T Axes : 000 065 017 degrees QTc Int : 464 ms Atrial fibrillation Nonspecific ST abnormality Abnormal ECG Confirmed by DAVID ROBINS, MAIKEL ([id number]), editor sound SADAF DELUNA ([id number]) on 10/09/2021 11:01:09 AM Referred By: NONA Confirmed By:MAIKEL HERNANDEZ MD
--- NOTE | 2021-10-06 23:24 | EDS_ITS ---
HPI History of Present Illness Chief Complaint: Syncope Informant: patient Narrative Narrative: Patient states she has not been eating well for the past 3 days and she is not sure why. Sounds like her appetite has been poor. She states she did not take her medications today, which include metoprolol tartrate 100 twice daily. She was weak all day today, and collapsed to the floor and a minor fall without any injury or syncope, and her called 911 because she was having trouble getting up. She denies any focal symptoms otherwise. She has a history of paroxysmal atrial fib/atrial flutter, she does not know when she is in it, and she currently does not feel her heart racing or skipping although she is tachycardic. Lives at home with her . No recent immobilization or hospitalization/surgery. [facility] Medical History Cervical cancer Essential hypertension Paroxysmal atrial fibrillation Paroxysmal atrial flutter Home Medications metoprolol tartrate 100 mg PO BID 08/14/19 [History Last Taken 08/14/19] apixaban 2.5 mg PO BID #60 tab 08/17/19 [Rx Last Taken Unknown] ciprofloxacin HCl 500 mg PO BID #14 tab 08/17/19 [Rx Last Taken Unknown] Allergy/AdvReac Type Severity Reaction Status Date / Time Iodine and Iodide Containing Allergy Severe rash Verified 10/06/21 23:00 Produc codeine AdvReac Unknown Unknown Verified 10/06/21 23:00 Family History Mother Congestive heart failure (CHF) Sister Atrial fibrillation Surgical History History of hysterectomy Social History Smoking Status: Never smoker how long ago did patient quit smokin years ago alcohol intake: current alcohol intake frequency: 0-2 drinks per day substance use type: does not use caffeine: Yes Type: coffee Number of servings: 1 ROS ROS ED Constitutional Constitutional ED: Reports as per HPI, anorexia and weakness; Denies body ache(s), chills or fever(s) Eyes Eyes: Denies change in vision or diplopia ENT ENT ED: Denies rhinorrhea or sore throat Cardiovascular Cardiovascular: Denies chest pain or palpitations Respiratory/Chest Respiratory/Chest: Denies cough or dyspnea Gastrointestinal Gastrointestinal: Denies abdominal pain, diarrhea, hematochezia, melena, nausea or vomiting Genitourinary Genitourinary ED: Denies dysuria or hematuria Musculoskeletal Musculoskeletal: Denies back pain or neck pain Integumentary Denies abscess or rash Neurologic Neurologic: Denies headache(s), paresthesias or weakness Psychiatric Psychiatric: Denies anxiety or suicidal thoughts EXAM Physical Exam Const Vital Signs: 10/06/21 22:54 10/06/21 23:02 10/06/21 23:27 Temperature 100.6 F H Temperature Source Oral Pulse Rate 124 H Respiratory Rate 29 H Respiratory Effort Normal Non-Labored Respiratory Pattern Normal Blood Pressure 138/81 H Blood Pressure Mean 100 Pulse Ox 95 Oxygen Delivery Method Room Air Room Air 10/07/21 00:12 10/07/21 00:24 10/07/21 01:00 Temperature Temperature Source Pulse Rate 99 100 94 Respiratory Rate 24 H 16 Respiratory Effort Respiratory Pattern Blood Pressure 118/83 H 100/67 Blood Pressure Mean 94 78 Pulse Ox 95 Oxygen Delivery Method Room Air Positive well nourished and well developed Constitutional Narrative: Well-appearing in no distress, keenly alert, sitting upright in bed General Appearance ED: well developed and NAD HEENT Reports moist mucous membranes normocephalic and atraumatic Eyes PERRL and EOMs intact bilaterally Neck full ROM, supple and no JVD Resp normal respiratory effort and clear to auscultation bilaterally Cardio Rate: tachycardic Rhythm: abnormal rhythm irregularly irregular GI non-tender and non-distended Auscultation: normoactive bowel sounds Palpation: soft Back/Spine no CVA tenderness General Back: other FROM Extremity normal to inspection General Extremety ED: Negative for edema, pulses abnormal or tenderness General Extremity: Negative for edema or pulses abnormal Neuro oriented x3, CN's II-XII intact bilaterally and no sensory deficits noted Neuro Narrative: Conversive without confusion Sensorium / Orientation: awake and alert Motor Exam: strength 5/5 throughout Skin no rashes or lesions noted and no wounds MDM MDM MDM Narrative Medical decision making narrative: Sepsis work-up obtained. She was given metoprolol IV since she missed her medications today and is in A. fib with RVR, first dose brought her rate down to the low 100s and when the nurse was going to give her the second 1, she appeared to have had converted to normal sinus rhythm with a rate of 99. The EKG was repeated see below, she was still in A. fib/flutter. Apparently when they were getting urine from her, she consented to having them straight catheterize her, and the patient had placed a rag and some toilet paper within her underwear to help catch some discharge that may be related to a urinary infection that she appeared to have once they obtained a sample, which was foul-smelling and cloudy. After sending cultures, she was started on Rocephin. Her initial troponin was negative, this was repeated 2 hours later and did go up to 55 which is just barely abnormal. Her repeat EKG did not show any signs of ischemia. This might be due to her rate and dehydration, will be admitted for continued monitoring and treatment. Prior to discussion with hospitalist, patient's pressure began to slowly drop, 100/67, then 78/69 (90/62 on recheck prior to treatment) at which point she was bolused with IV fluids. At this time I think she is stable for admission to PCU, we will continue to evaluate her response to IV fluids and her blood pressure prior to admission however. Lab Data Attestation: I reviewed the patient's lab results. Labs: Laboratory Results - last 24 hr 10/06/21 10/06/21 10/06/21 23:00 23:10 23:10 WBC 10.1 RBC 3.85 L Hgb 13.3 Hct 39.6 MCV 102.9 H MCH 34.5 H MCHC 33.6 RDW Std Deviation 48.8 H RDW Coeff of Mike 12.9 Plt Count 106 L MPV 11.7 Immature Gran % (Auto) 0.600 Neut % (Auto) 83.8 H Lymph % (Auto) 5.5 L [place] % (Auto) 9.8 Eos % (Auto) 0.0 Baso % (Auto) 0.3 Absolute Neuts (auto) 8.5 H Absolute Lymphs (auto) 0.56 L Nucleated RBC % 0 Differential Comment SCANNED Sodium 139 Potassium 3.6 Chloride 107 Carbon Dioxide 27.0 Anion Gap 5 BUN 28 H Creatinine 1.12 H Estim Creat Clear Calc 32.71 Est GFR (MDRD) Af Amer 60 Est GFR (MDRD) Non-Af 49 L BUN/Creatinine Ratio 25.0 H Glucose 151 H Lactic Acid Calcium 8.8 Troponin I High Sens 38 Urine Color Marj Urine Clarity Cloudy Urine pH 5.0 Ur Specific [place] 1.020 Urine Protein 100 H Urine Glucose (UA) Normal Urine Ketones Negative Urine Occult Blood 150 H Urine Nitrite Negative Urine Bilirubin Negative Urine Urobilinogen 4 H Ur Leukocyte Esterase 500 H Urine RBC 0-5 SEEN Urine WBC >100 SEEN Ur Squamous Epith Cells 0 SEEN Urine Bacteria 2+ Urine Mucus 0 SEEN 10/06/21 10/07/21 23:40 01:21 WBC RBC Hgb Hct MCV MCH MCHC RDW Std Deviation RDW Coeff of Mike Plt Count MPV Immature Gran % (Auto) Neut % (Auto) Lymph % (Auto) [place] % (Auto) Eos % (Auto) Baso % (Auto) Absolute Neuts (auto) Absolute Lymphs (auto) Nucleated RBC % Differential Comment Sodium Potassium Chloride Carbon Dioxide Anion Gap BUN Creatinine Estim Creat Clear Calc Est GFR (MDRD) Af Amer Est GFR (MDRD) Non-Af BUN/Creatinine Ratio Glucose Lactic Acid 1.8 Calcium Troponin I High Sens 55 H Urine Color Urine Clarity Urine pH Ur Specific [place] Urine Protein Urine Glucose (UA) Urine Ketones Urine Occult Blood Urine Nitrite Urine Bilirubin Urine Urobilinogen Ur Leukocyte Esterase Urine RBC Urine WBC Ur Squamous Epith Cells Urine Bacteria Urine Mucus Radiography Diagnostic Testing: Clinical Impression(s) from Imaging Studies Chest X-Ray 10/06/21 00:30 IMPRESSION: 1. Cardiomegaly and/or pericardial effusion. 2. No pneumonia. 3. No other acute disease. Electronically Signed: Troy Callahan MD at 1:21 EST , EKG Initial EKG: Attestation: I personally reviewed and interpreted this EKG as follows: Interpretation: No Acute Injury Pattern, Atrial Fibrillation, Atrial Flutter and Non-Specific ST Changes Comments: RVR Prior EKG tracings: available for review Prior: Unchanged Follow-up EKG: Attestation: I personally reviewed and interpreted this EKG as follows: Interpretation: No Acute Injury Pattern and Atrial Flutter (104) Discharge Plan Dx/Rx/DC Orders Clinical Impression: Sepsis secondary to UTI, HARSHIL (acute kidney injury), Dehydration, Atrial flutter with rapid ventricular response Disposition Disposition: Acute Care Hospital [facility]
[2021-10-06 23:25] LABS: Absolute Lymphocyte Count 0.56 X10^3/uL (0.83-4.51); Absolute Neutrophil Count 8.5 X10^3/uL (2.0-7.7); Basophil# 0.03 X10^3/uL; Basophil% 0.3 % (0-1); Hematocrit 39.6 % (37-47); Hemoglobin 13.3 g/dL (12.0-15.0); Lymphocyte # 0.56 X10^3/ul (0.83-4.51); Lymphocyte % 5.5 % (19-41); Mean Corp Hgb Conc 33.6 g/dL (32-36); Mean Corpuscular Hgb 34.5 pg (27.0-32.0); Mean Corpuscular Volume 102.9 fL (81-99); Mean Platelet Vol. 11.7 fl (6.2-12.0); Monocyte# 0.99 X10^3/uL; Monocyte% 9.8 % (0-10); NRBC Flagged by Analyzer 0 % (0-5); Neutrophil # 8.49 X10^3/uL (2.7-7.7); Neutrophil % 83.8 % (47-70); POSITIVE DIFFERENTIAL YES; Platelet Count 106 K/mm3 (150-450); RBC Distribution Width CV 12.9 % (11.6-14.6); RBC Distribution Width SD 48.8 fl (35.1-43.9); Red Blood Count 3.85 M/mm3 (4.2-5.4); White Blood Count 10.1 K/mm3 (4.4-11.0)
[2021-10-06 23:38] LABS: Differential Indicated SCAN CRITERIA MET
[2021-10-06] MEDS: Acetaminophen 500 MG Tablet 1000 MG PO (23:39)
[2021-10-06] MEDS: 0.9% Normal Saline 1,000 ML 150 ML IV (23:39)
[2021-10-06] MEDS: Aspirin 81 MG TAB.CHEW 324 MG PO (23:40)
[2021-10-06] MEDS: Metoprolol Tartrate 5 MG/5 ML Vial IV (23:41)
[2021-10-06 23:55] LABS: Anion Gap 5 (5-15); BUN 28 mg/dL (7-18); Calcium,Total 8.8 mg/dL (8.5-10.1); Chloride 107 mmol/L (98-107); Creatinine, Serum 1.12 mg/dL (0.55-1.02); EST Glomerular Filtration Rate 49 mL/min (>60); Est Glom Filt Rate - Afr Amer 60 mL/min (>60); Estimated Creatinine Clearance 32.71 ml/min; Glucose 151 mg/dL (74-106); Potassium 3.6 mmol/L (3.5-5.1); Sodium Level 139 mmol/L (136-145); Troponin-I HS 38 pg/mL (3.0-54.0)
[2021-10-06 23:56] LABS: Differential Comment SCANNED
[2021-10-07] VITALS (16 sets, daily range): BP systolic 100–151; BP diastolic 67–102; PULSE 75–130; RESP 16–24; TEMP 36.6–38; O2SAT 94–99; BMI 17.0
[2021-10-07 00:01] LABS: Mucous, Urine 0 SEEN /hpf (<or=2+); Squamous Epithelial Cells - UA 0 SEEN /hpf (5-10)
[2021-10-07 00:18] LABS: Color, Urine Amber (Yellow); Glucose, Dipstick Normal (Normal); Ketone-Dipstick Negative (Negative); Leukocyte Esterase-Dipstick 500 /ul (Negative); Nitrite-Dipstick Negative (Negative); Occult Blood-Urine 150 /ul (Negative); Protein-Dipstick 100 mg/dl (Negative); Urine Bilirubin Dipstick Negative (Negative); Urine Clarity Cloudy (Clear); Urine Urobilinogen 4 mg/dl (Normal); White Blood Cells >100 SEEN /hpf (0-5)
--- NOTE | 2021-10-07 00:19 | EKG12_ITS ---
Test Reason : DYSRHYTHMIA Blood Pressure : / mmHG Vent. Rate : 104 BPM Atrial Rate : 394 BPM P-R Int : 000 ms QRS Dur : 076 ms QT Int : 368 ms P-R-T Axes : 087 079 070 degrees QTc Int : 483 ms Atrial flutter with variable A-V block Abnormal ECG Confirmed by DAVID ROBINS, MAIKEL ([id number]), pictures editor SADAF DELUNA ([id number]) on 10/09/2021 11:01:33 AM Referred By: BB Confirmed By:MAIKEL HERNANDEZ MD
[2021-10-07 00:20] LABS: Red Blood Cells-Urine 0-5 SEEN /hpf (0-5)
[2021-10-07 00:21] LABS: Bacteria 2+ /hpf (None Seen)
[2021-10-07 00:28] LABS: Lactic Acid 1.8 mmol/L (0.4-1.9)
[2021-10-07] MEDS: Ceftriaxone 1 GM/50 ML BAG IV ×2 (00:32→12:33)
[2021-10-07 01:49] LABS: Troponin-I HS 55 pg/mL (3.0-54.0)
[2021-10-07] MEDS: 0.9% Normal Saline 1,000 ML 999 ML IV (02:47)
--- NOTE | 2021-10-07 02:55 | PCM.HP.STD ---
HPI - General HPI Narrative LANNY MACEDO, is a 80 F who presents to the hospital with confusion and syncope. She was lethargic during my exam and was unable to answer a lot of questions. Appear that she has been weak for several days and has had poor p.o. intake. She was found to have had have sepsis secondary to likely UTI started on IV antibiotics as well as IV fluids. [facility] Medical History Cervical cancer Essential hypertension Paroxysmal atrial fibrillation Paroxysmal atrial flutter Home Medications metoprolol tartrate 100 mg PO BID 08/14/19 [History Last Taken 08/14/19] apixaban 2.5 mg PO BID #60 tab 08/17/19 [Rx Last Taken Unknown] ciprofloxacin HCl 500 mg PO BID #14 tab 08/17/19 [Rx Last Taken Unknown] Allergy/AdvReac Type Severity Reaction Status Date / Time Iodine and Iodide Containing Allergy Severe rash Verified 10/06/21 23:00 Produc codeine AdvReac Unknown Unknown Verified 10/06/21 23:00 Family History Mother Congestive heart failure (CHF) Sister Atrial fibrillation Surgical History History of hysterectomy Social History Smoking Status: Never smoker how long ago did patient quit smokin years ago alcohol intake: current alcohol intake frequency: 0-2 drinks per day substance use type: does not use caffeine: Yes Type: coffee Number of servings: 1 ROS Review of Systems ROS Unobtainable: due to encephalopathy Vital Signs Vital Signs Vital Signs: 10/06/21 22:54 10/06/21 23:02 10/06/21 23:27 Temperature 100.6 F H Temperature Source Oral Pulse Rate 124 H Respiratory Rate 29 H Respiratory Effort Normal Non-Labored Respiratory Pattern Normal Blood Pressure 138/81 H Blood Pressure Mean 100 Pulse Ox 95 Oxygen Delivery Method Room Air Room Air 10/07/21 00:12 10/07/21 00:24 10/07/21 01:00 Temperature Temperature Source Pulse Rate 99 100 94 Respiratory Rate 24 H 16 Respiratory Effort Respiratory Pattern Blood Pressure 118/83 H 100/67 Blood Pressure Mean 94 78 Pulse Ox 95 Oxygen Delivery Method Room Air Weight Weight: 117 lb 15.157 oz Body Mass Index (BMI) 18.4 Physical Exam Const alert and no apparent distress Orientation / Consciousness: confused HEENT normocephalic Mouth: dry mucous membranes Eyes PERRL, EOMs intact bilaterally and conjunctivae normal Neck supple and no JVD Resp normal respiratory effort, no retractions, no use of accessory muscles and clear to auscultation bilaterally Auscultation: Negative for crackles, rales, rhonchi or wheezes Cardio regular rhythm, S1 normal heart sound, S2 normal heart sound and no murmurs Rate: tachycardic GI soft to palpation, non-tender and non-distended; Negative for hepatosplenomegaly Extremity no clubbing, cyanosis or edema Skin no rashes or lesions noted Neuro no focal motor deficits and no sensory deficits noted Psych affect normal Appearance: appropriate Results Lab / Micro Data Result Diagrams: 10/06/21 23:10 10/06/21 23:10 Labs: Laboratory Results - last 24 hr 10/06/21 23:00: Urine Color Marj, Urine Clarity Cloudy, Urine pH 5.0, Ur Specific [place] 1.020, Urine Protein 100 H, Urine Glucose (UA) Normal, Urine Ketones Negative, Urine Occult Blood 150 H, Urine Nitrite Negative, Urine Bilirubin Negative, Urine Urobilinogen 4 H, Ur Leukocyte Esterase 500 H, Urine RBC 0-5 SEEN, Urine WBC >100 SEEN, Ur Squamous Epith Cells 0 SEEN, Urine Bacteria 2+, Urine Mucus 0 SEEN 10/06/21 23:10: WBC 10.1, RBC 3.85 L, Hgb 13.3, Hct 39.6, MCV 102.9 H, MCH 34.5 H, MCHC 33.6, RDW Std Deviation 48.8 H, RDW Coeff of Mike 12.9, Plt Count 106 L, MPV 11.7, Immature Gran % (Auto) 0.600, Neut % (Auto) 83.8 H, Lymph % (Auto) 5.5 L, [place] % (Auto) 9.8, Eos % (Auto) 0.0, Baso % (Auto) 0.3, Absolute Neuts (auto) 8.5 H, Absolute Lymphs (auto) 0.56 L, Nucleated RBC % 0, Differential Comment SCANNED 10/06/21 23:10: Sodium 139, Potassium 3.6, Chloride 107, Carbon Dioxide 27.0, Anion Gap 5, BUN 28 H, Creatinine 1.12 H, Estim Creat Clear Calc 32.71, Est GFR (MDRD) Af Amer 60, Est GFR (MDRD) Non-Af 49 L, BUN/Creatinine Ratio 25.0 H, Glucose 151 H, Calcium 8.8, Troponin I High Sens 38 10/06/21 23:40: Lactic Acid 1.8 10/07/21 01:21: Troponin I High Sens 55 H Micro: Microbiology 10/07/21 00:05 Nasal Secretion SARS-CoV-2 Antigen (Rapid) - Final 10/06/21 23:35 Mucosa - Nasopharyngeal Influenza Types A,B Direct FA (OLEKSANDR) - Final Radiology Impression Chest X-Ray 10/06/21 00:30 IMPRESSION: 1. Cardiomegaly and/or pericardial effusion. 2. No pneumonia. 3. No other acute disease. Electronically Signed: Troy Callahan MD at 1:21 EST , Assessment & Plan Assessment/Plan (1) Sepsis secondary to UTI: PLAN: 1. Sepsis secondary to UTI ?She research criteria with tachycardia and tachypnea and her source of infection is a UTI ?Continue with Rocephin ?Continue with aggressive fluid hydration lactic acid 1.8 ?PT/OT for evaluation ?Urine cultures and blood cultures are pending, she did have sepsis from a UTI as well as bacteremia back in August 2019 2. Paroxysmal A. fib ?We will hold her metoprolol in the light of sepsis ?Can resume Eliquis once verified DVT: Eliquis when verified Charges/Coding Visit Charges Inpatient E&M: 08037 Init Hosp L2
[2021-10-07] MEDS: 0.9% Normal Saline 1,000 ML 125 ML IV ×3 (04:00→17:41)
[2021-10-07 06:44] LABS: Absolute Lymphocyte Count 0.89 X10^3/uL (0.83-4.51); Absolute Neutrophil Count 6.2 X10^3/uL (2.0-7.7); Basophil# 0.04 X10^3/uL; Basophil% 0.5 % (0-1); Eosinophil# 0.01 X10^3/uL; Eosinophils% 0.1 % (0-5); Hematocrit 37.2 % (37-47); Hemoglobin 12.6 g/dL (12.0-15.0); Lymphocyte # 0.89 X10^3/ul (0.83-4.51); Lymphocyte % 11.4 % (19-41); Mean Corp Hgb Conc 33.9 g/dL (32-36); Mean Corpuscular Volume 103.3 fL (81-99); Mean Platelet Vol. 11.8 fl (6.2-12.0); Monocyte# 0.66 X10^3/uL; Monocyte% 8.4 % (0-10); NRBC Flagged by Analyzer 0 % (0-5); Neutrophil # 6.18 X10^3/uL (2.7-7.7); Neutrophil % 79.1 % (47-70); POSITIVE COUNT YES; Platelet Count 98 K/mm3 (150-450); RBC Distribution Width CV 13.1 % (11.6-14.6); RBC Distribution Width SD 49.6 fl (35.1-43.9); White Blood Count 7.8 K/mm3 (4.4-11.0)
[2021-10-07 07:16] LABS: Anion Gap 4 (5-15); BUN 28 mg/dL (7-18); BUN/Creat Ratio 30.5 RATIO (10-20); Calcium,Total 7.9 mg/dL (8.5-10.1); Chloride 110 mmol/L (98-107); Creatinine, Serum 0.92 mg/dL (0.55-1.02); EST Glomerular Filtration Rate 62 mL/min (>60); Est Glom Filt Rate - Afr Amer 75 mL/min (>60); Estimated Creatinine Clearance 36.77 ml/min; Glucose 124 mg/dL (74-106); Potassium 3.9 mmol/L (3.5-5.1); Sodium Level 140 mmol/L (136-145)
[2021-10-07 07:32] LABS: Troponin-I HS 39 pg/mL (3.0-54.0)
--- NOTE | 2021-10-07 09:44 | CASEMGMT ---
MOMO MEDINA Assessment: Face to Face with pt for initial transition planning/care coordination assessment. RN ADAM introduced self and role at [facility], pt voices understanding and consents to assessment. Pt is A/O x4 and answers all questions appropriately at this time. Pt slow to answer questions at times. Care providers, pharmacy, and demographics verified/updated. Admitting Dx: Sepsis PCP: Windy Specialists: Pt denies. Preferred Pharmacy: [facility] Insurance: [employer] Prescription Benefit: yes LW/HPOA: Pt denies having a LW/DPOA and denies need for info regarding AD. LNOK: Rubia Da Silva, Living Arrangements: Pt lives with in a single story house with one step to enter. Pt reports she is I in ADL's and denies concerns at home. Transportation: Pt drives self and denies concerns with transportation. DME/HHC/SNF: Pt has a cane and walker at home. She normally uses the can if she needs it. Pt denies hx of HHC or SNF stays. Pt states no concerns with going home at time of dc. She denies need for any therapy post hospitalization. Pt states no further concerns/needs. CM to follow. Advised pt to ask CM if any further question/concerns/needs arise, voices understanding. Pt Goal: Home Plan: Home
[2021-10-07] MEDS: APIXABAN 2.5 MG TABLET PO ×2 (10:02→22:53)
--- NOTE | 2021-10-07 11:09 | EKG12_ITS ---
Test Reason : AFLUTTER Blood Pressure : / mmHG Vent. Rate : 119 BPM Atrial Rate : 468 BPM P-R Int : 000 ms QRS Dur : 068 ms QT Int : 316 ms P-R-T Axes : 000 089 035 degrees QTc Int : 444 ms Atrial fibrillation Nonspecific ST and T wave abnormality , probably digitalis effect Abnormal ECG When compared with ECG of 07-OCT-2021 00:25, MANUAL COMPARISON REQUIRED, DATA IS UNCONFIRMED Confirmed by DAVID ROBINS, MAIKEL ([id number]), writer editor SADAF DELUNA ([id number]) on 10/09/2021 2:26:45 PM Referred By: DAREN Confirmed By:MAIKEL HERNANDEZ MD
--- NOTE | 2021-10-07 11:23 | PCM.PN.HOSP ---
Subjective Subjective Follow-up on sepsis secondary to UTI/A. fib with RVR. Patient was seen and examined. She appears very frail. Denied any fever or chills. On telemetry, she is in RVR. She has not been able to be given her metoprolol on account of relative hypotension. Denies any dizziness or palpitations or shortness of breath. Objective Data Objective Data Vital Signs: Vital Signs Temp Pulse Resp BP Pulse Ox 98.1 F 102 H 16 135/99 H 99 10/07/21 09:05 10/07/21 09:05 10/07/21 09:05 10/07/21 09:05 10/07/21 09:05 Oxygen Delivery Method Room Air Weight: 49.4 kg Body Mass Index (BMI) 17.0 Intake & Output: Intake and Output for Last 24 Hours 10/05/21 10/06/21 10/07/21 23:59 23:59 23:59 Intake Total 500 / 500 2379.58 / 2379.58 Balance 500 / 500 2379.58 / 2379.58 Lab / Micro Data Result Diagrams: 10/07/21 06:20 10/07/21 06:20 Labs: Laboratory Results - last 24 hr 10/06/21 23:00: Urine Color Marj, Urine Clarity Cloudy, Urine pH 5.0, Ur Specific [place] 1.020, Urine Protein 100 H, Urine Glucose (UA) Normal, Urine Ketones Negative, Urine Occult Blood 150 H, Urine Nitrite Negative, Urine Bilirubin Negative, Urine Urobilinogen 4 H, Ur Leukocyte Esterase 500 H, Urine RBC 0-5 SEEN, Urine WBC >100 SEEN, Ur Squamous Epith Cells 0 SEEN, Urine Bacteria 2+, Urine Mucus 0 SEEN 10/06/21 23:10: WBC 10.1, RBC 3.85 L, Hgb 13.3, Hct 39.6, MCV 102.9 H, MCH 34.5 H, MCHC 33.6, RDW Std Deviation 48.8 H, RDW Coeff of Mike 12.9, Plt Count 106 L, MPV 11.7, Immature Gran % (Auto) 0.600, Neut % (Auto) 83.8 H, Lymph % (Auto) 5.5 L, [place] % (Auto) 9.8, Eos % (Auto) 0.0, Baso % (Auto) 0.3, Absolute Neuts (auto) 8.5 H, Absolute Lymphs (auto) 0.56 L, Nucleated RBC % 0, Differential Comment SCANNED 10/06/21 23:10: Sodium 139, Potassium 3.6, Chloride 107, Carbon Dioxide 27.0, Anion Gap 5, BUN 28 H, Creatinine 1.12 H, Estim Creat Clear Calc 32.71, Est GFR (MDRD) Af Amer 60, Est GFR (MDRD) Non-Af 49 L, BUN/Creatinine Ratio 25.0 H, Glucose 151 H, Calcium 8.8, Troponin I High Sens 38 10/06/21 23:40: Lactic Acid 1.8 10/07/21 01:21: Troponin I High Sens 55 H 10/07/21 06:20: WBC 7.8, RBC 3.60 L, Hgb 12.6, Hct 37.2, MCV 103.3 H, MCH 35.0 H, MCHC 33.9, RDW Std Deviation 49.6 H, RDW Coeff of Mike 13.1, Plt Count 98 L, MPV 11.8, Immature Gran % (Auto) 0.500, Neut % (Auto) 79.1 H, Lymph % (Auto) 11.4 L, [place] % (Auto) 8.4, Eos % (Auto) 0.1, Baso % (Auto) 0.5, Absolute Neuts (auto) 6.2, Absolute Lymphs (auto) 0.89, Nucleated RBC % 0 10/07/21 06:20: Sodium 140, Potassium 3.9, Chloride 110 H, Carbon Dioxide 26.0, Anion Gap 4 L, BUN 28 H, Creatinine 0.92, Estim Creat Clear Calc 36.77, Est GFR (MDRD) Af Amer 75, Est GFR (MDRD) Non-Af 62, BUN/Creatinine Ratio 30.5 H, Glucose 124 H, Calcium 7.9 L 10/07/21 06:50: Troponin I High Sens 39 Micro: Microbiology 10/07/21 00:05 Blood Culture (Wb) - Left Forearm Blood Culture - Preliminary 10/07/21 00:05 Nasal Secretion SARS-CoV-2 Antigen (Rapid) - Final 10/06/21 23:35 Mucosa - Nasopharyngeal Influenza Types A,B Direct FA (OLEKSANDR) - Final Radiography Diagnostic Testing: Radiology Impression Chest X-Ray 10/06/21 00:30 IMPRESSION: 1. Cardiomegaly and/or pericardial effusion. 2. No pneumonia. 3. No other acute disease. Electronically Signed: Troy Callahan MD at 1:21 EST , Physical Exam Narrative Physical exam: General: Alert, Oriented x3, Cooperative, No apparent distress, appears very frail HEENT: Atraumatic Oral: Moist Mucosa Neck: Supple Lungs: Diminished to auscultation Cardiovascular: HS I+II, irregular, tachycardia, no murmurs Abdomen: Bowel Sounds Present, Soft, Non Tender Extremities: No edema Assessment & Plan Assessment/Plan (1) Sepsis secondary to UTI: PLAN: 1. Severe sepsis/gram-negative addis bacteremia secondary to UTI, Urine cultures are pending, preliminary blood cultures growing gram-negative rods WBC count is 7.8, continue IV ceftriaxone Follow-up on blood and urine cultures 2. A. fib with RVR, secondary to #1 Patient's metoprolol was held on account of relative hypotension Will resume at a lower dose of metoprolol, continue Eliquis 3. HARSHIL, likely pre-renal, admitting Cr is 1.12; previous creatinine 0.69 Cr improved today to 0.92. Continue on IV fluids, repeat blood work in a.m. 4. DVT -Eliquis Charges/Coding Visit Charges Inpatient E&M: 86845 Subs Hosp L2
[2021-10-07] MEDS: Metoprolol Tartrate 25 MG Tablet PO (12:25)
[2021-10-07] MEDS: Metoprolol Tartrate 50 MG Tablet PO (22:53)
[2021-10-08] VITALS (12 sets, daily range): BP systolic 117–139; BP diastolic 68–101; PULSE 88–125; RESP 16–18; TEMP 36.8–37.5; O2SAT 94–96
[2021-10-08] MEDS: 0.9% Normal Saline 1,000 ML 125 ML IV (03:49)
[2021-10-08 04:59] LABS: Absolute Lymphocyte Count 1.17 X10^3/uL (0.83-4.51); Absolute Neutrophil Count 7.3 X10^3/uL (2.0-7.7); Basophil# 0.04 X10^3/uL; Basophil% 0.4 % (0-1); Eosinophil# 0.02 X10^3/uL; Eosinophils% 0.2 % (0-5); Hematocrit 38.2 % (37-47); Hemoglobin 12.8 g/dL (12.0-15.0); Lymphocyte # 1.17 X10^3/ul (0.83-4.51); Lymphocyte % 12.7 % (19-41); Mean Corp Hgb Conc 33.5 g/dL (32-36); Mean Corpuscular Volume 104.4 fL (81-99); Mean Platelet Vol. 12.8 fl (6.2-12.0); Monocyte# 0.72 X10^3/uL; Monocyte% 7.8 % (0-10); NRBC Flagged by Analyzer 0 % (0-5); Neutrophil # 7.25 X10^3/uL (2.7-7.7); Neutrophil % 78.6 % (47-70); Platelet Count 115 K/mm3 (150-450); RBC Distribution Width CV 13.2 % (11.6-14.6); RBC Distribution Width SD 50.7 fl (35.1-43.9); Red Blood Count 3.66 M/mm3 (4.2-5.4); White Blood Count 9.2 K/mm3 (4.4-11.0)
[2021-10-08 05:29] LABS: ALB/GLOB Ratio 0.6 RATIO (0.9-2.4); AST(SGOT) 28 U/L (15-37); Alanine Aminotransfer ALT/SGPT 13 U/L (13-56); Albumin, Serum 2.3 g/dL (3.2-5.0); Alkaline Phosphatase 58 U/L (45-117); Anion Gap 6 (5-15); BUN 27 mg/dL (7-18); BUN/Creat Ratio 28.7 RATIO (10-20); Calcium,Total 8.8 mg/dL (8.5-10.1); Chloride 110 mmol/L (98-107); Creatinine, Serum 0.94 mg/dL (0.55-1.02); EST Glomerular Filtration Rate 61 mL/min (>60); Est Glom Filt Rate - Afr Amer 73 mL/min (>60); Estimated Creatinine Clearance 35.98 ml/min; Globulin 3.9 g/dL (2.2-4.2); Glucose 102 mg/dL (74-106); Protein, Total 6.2 g/dL (6.4-8.2); Sodium Level 139 mmol/L (136-145)
--- NOTE | 2021-10-08 08:03 | PCM.PN.HOSP ---
Subjective Subjective Follow-up on sepsis secondary to UTI/A. fib with RVR. Patient was seen and examined.No acute events overnight except heart rate is elevated this morning. Denies any fever or chills. Objective Data Objective Data Vital Signs: Vital Signs Temp Pulse Resp BP Pulse Ox 98.3 F 124 H 16 139/101 H 95 10/08/21 04:45 10/08/21 07:12 10/08/21 04:45 10/08/21 04:45 10/08/21 04:45 Oxygen Delivery Method Room Air Weight: 49.4 kg Body Mass Index (BMI) 17.0 Intake & Output: Intake and Output for Last 24 Hours 10/06/21 10/07/21 10/08/21 23:59 23:59 23:59 Intake Total 500 / 500 3909.58 / 4029.58 1120 / 1120 Balance 500 / 500 3909.58 / 4029.58 1120 / 1120 Medical Nutrition Assessment Dietitian: Malnutrition Criteria Met Start: 10/07/21 13:29 Freq: Status: Active Protocol: Document 10/07/21 13:29 ANA CRISTINA (Rec: 10/07/21 13:29 [facility] [id number]) Nutrition Malnutrition Evidence of Malnutrition Exists Yes Malnutrition (severe): Chronic Evidenced By Suboptimal Energy Intake ( Severe),Weight Loss (Severe), Physical Changes (Severe) Clinical Problem Chronic Disease or Condition Related Malnutrition Etiology related to pt not feeling well and issues with confusion making it difficult for pt to consume adequate nutrition to meet est needs Signs/Symptoms as evidenced by 19.4% wt loss and <50% of usual po intake x 6 mo - also noted to have fat / muscle loss (orbital, temporal, scapula, shoulders, clavicle, ribs, triceps), BMI = 17.1 Status Active Problem Recommendation Dietitian Recommendations/Changes Will continue liberal Regular diet Will provide 8 oz ensure enlive w/ meals per pt request (8 oz vs 4 oz) Lab / Micro Data Result Diagrams: 10/08/21 04:25 10/08/21 04:25 Labs: Laboratory Results - last 24 hr 10/08/21 04:25: WBC 9.2, RBC 3.66 L, Hgb 12.8, Hct 38.2, MCV 104.4 H, MCH 35.0 H, MCHC 33.5, RDW Std Deviation 50.7 H, RDW Coeff of Mike 13.2, Plt Count 115 L, MPV 12.8 H, Immature Gran % (Auto) 0.300, Neut % (Auto) 78.6 H, Lymph % (Auto) 12.7 L, [place] % (Auto) 7.8, Eos % (Auto) 0.2, Baso % (Auto) 0.4, Absolute Neuts (auto) 7.3, Absolute Lymphs (auto) 1.17, Nucleated RBC % 0 10/08/21 04:25: Sodium 139, Potassium 4.0, Chloride 110 H, Carbon Dioxide 23.0, Anion Gap 6, BUN 27 H, Creatinine 0.94, Estim Creat Clear Calc 35.98, Est GFR (MDRD) Af Amer 73, Est GFR (MDRD) Non-Af 61, BUN/Creatinine Ratio 28.7 H, Glucose 102, Calcium 8.8, Total Bilirubin 1.30 H, AST 28, ALT 13, Alkaline Phosphatase 58, Total Protein 6.2 L, Albumin 2.3 L, Globulin 3.9, Albumin/Globulin Ratio 0.6 L Micro: Microbiology 10/06/21 23:40 Blood Culture (Wb) - Anticubital Left Blood Culture - Preliminary 10/07/21 00:05 Blood Culture (Wb) - Left Forearm Blood Culture - Preliminary 10/07/21 00:05 Nasal Secretion SARS-CoV-2 Antigen (Rapid) - Final 10/06/21 23:35 Mucosa - Nasopharyngeal Influenza Types A,B Direct FA (OLEKSANDR) - Final Physical Exam Narrative Physical exam: General: Alert, Oriented x3, Cooperative, No apparent distress, appears very frail HEENT: Atraumatic Oral: Moist Mucosa Neck: Supple Lungs: Diminished to auscultation Cardiovascular: HS I+II, irregular, tachycardia, no murmurs Abdomen: Bowel Sounds Present, Soft, Non Tender Extremities: No edema Assessment & Plan Assessment/Plan (1) Sepsis secondary to UTI: PLAN: 1. 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 coli, Preliminary blood cultures growing gram-negative rods WBC count is 9.2, continue IV ceftriaxone Follow-up on blood and urine cultures 2. A. fib with RVR, secondary to #1 Continue on metoprolol 100mg PO BID, Eliquis 3. HARSHIL, likely pre-renal, admitting Cr is 1.12; previous creatinine 0.69 Cr improved today to 0.92. Continue on IV fluids, repeat blood work in a.m. 4. DVT -Eliquis 5. Disposition: Possible DC in a.m. if improved Charges/Coding Visit Charges Inpatient E&M: 79658 Subs Hosp L2
[2021-10-08] MEDS: Metoprolol Tartrate 100 MG Tablet PO ×2 (08:13→21:10)
[2021-10-08] MEDS: APIXABAN 2.5 MG TABLET PO ×2 (08:14→21:07)
[2021-10-09] VITALS (8 sets, daily range): BP systolic 103–128; BP diastolic 73–83; PULSE 96–97; RESP 16; TEMP 36.5–37.4; O2SAT 92–96
[2021-10-09 07:04] LABS: Absolute Lymphocyte Count 1.34 X10^3/uL (0.83-4.51); Absolute Neutrophil Count 5.6 X10^3/uL (2.0-7.7); Basophil# 0.04 X10^3/uL; Basophil% 0.5 % (0-1); Eosinophil# 0.06 X10^3/uL; Eosinophils% 0.7 % (0-5); Hematocrit 37.4 % (37-47); Hemoglobin 12.3 g/dL (12.0-15.0); Lymphocyte # 1.34 X10^3/ul (0.83-4.51); Lymphocyte % 16.7 % (19-41); Mean Corp Hgb Conc 32.9 g/dL (32-36); Mean Corpuscular Hgb 33.7 pg (27.0-32.0); Mean Corpuscular Volume 102.5 fL (81-99); Mean Platelet Vol. 12.6 fl (6.2-12.0); Monocyte# 0.94 X10^3/uL; Monocyte% 11.7 % (0-10); NRBC Flagged by Analyzer 0 % (0-5); Neutrophil # 5.62 X10^3/uL (2.7-7.7); Platelet Count 121 K/mm3 (150-450); RBC Distribution Width SD 48.6 fl (35.1-43.9); Red Blood Count 3.65 M/mm3 (4.2-5.4)
[2021-10-09 07:33] LABS: ALB/GLOB Ratio 0.6 RATIO (0.9-2.4); AST(SGOT) 37 U/L (15-37); Alanine Aminotransfer ALT/SGPT 15 U/L (13-56); Albumin, Serum 2.1 g/dL (3.2-5.0); Alkaline Phosphatase 56 U/L (45-117); Anion Gap 7 (5-15); BUN 30 mg/dL (7-18); BUN/Creat Ratio 32.5 RATIO (10-20); Calcium,Total 8.4 mg/dL (8.5-10.1); Chloride 108 mmol/L (98-107); Creatinine, Serum 0.92 mg/dL (0.55-1.02); EST Glomerular Filtration Rate 62 mL/min (>60); Est Glom Filt Rate - Afr Amer 75 mL/min (>60); Estimated Creatinine Clearance 36.77 ml/min; Globulin 3.4 g/dL (2.2-4.2); Glucose 95 mg/dL (74-106); Potassium 3.9 mmol/L (3.5-5.1); Protein, Total 5.5 g/dL (6.4-8.2); Sodium Level 137 mmol/L (136-145)
[2021-10-09] MEDS: APIXABAN 2.5 MG TABLET PO (09:06)
[2021-10-09] MEDS: Metoprolol Tartrate 100 MG Tablet PO (09:07)
--- NOTE | 2021-10-09 11:44 | PCM.DC ---
Discharge Instructions Diet Discharge Diet: No restrictions Activity Discharge Activity: Return to Normal Activity Weight Bearing Status: Weight bearing as tolerated Dressing / Incision Call your doctor if you observe: Fever of 101 or Higher, Numbness or Tingling, Shortness of breath, Dizziness, Chest pain, Increased palpitations (irregular heartbeat) and Calf discomfort Follow Up Care Please Follow Up With: Primary care provider When: Within the next two weeks. Test Results: Test results from this visit will be discussed in further detail at your follow-up appointment, if applicable. Discharge Plan Admission Admit Date/Time: 10/07/21 02:51 Primary Reason for Your Visit: Sepsis secondary to urinary tract infection. Attending Provider: Benito Saab Primary Care Provider: Bárbara Temple Discharge Orders/Prescriptions Prescriptions: New cefdinir 300 mg capsule 300 mg PO BID Qty: 18 RF: 0 Continued metoprolol tartrate 100 MG tablet 100 mg PO BID RF: 0 apixaban 2.5 MG tablet 2.5 mg PO BID RF: 0 Discontinued ciprofloxacin HCl 500 MG tablet 500 mg PO BID Qty: 14 RF: 0 Referrals / Follow Up: Bárbara Temple MD [Primary Care Provider] - Within 2 Weeks Disposition Disposition (needs filled in before D/C Order can be placed): Home, Self Care
--- NOTE | 2021-10-09 14:09 | CASEMGMT ---
Addendum entered by Moni Durham 10/09/21 14:58: here to get pt and pt/ state no concerns with going home at this time. Pt up out of bed and got into w/c on own and again assists on no further needs at discharge, agrees. Keely BARR CM Original Note: This RN CM to room to discuss d/c plan. Pt declines need for any further therapy but is slightly confused at times. This RN CM attempted to reach pt without success. Nicolasa RN aware to notify this RN CM upon 's arrival. Keely BARR CM
--- NOTE | 2021-10-09 15:17 | PCM.DC.SUM ---
Documented by User: Wally FINNEY 10/09/21 15:22 Providers Date of Admission: 10/07/21 Date of Discharge: 10/09/21 Primary Care Physician: Dr. Bárbara Temple MD Reason For Visit: SEPSIS Diagnosis Discharge Diagnosis (1) Sepsis secondary to UTI: Status: Acute Code(s): A41.9 - Sepsis, unspecified organism; N39.0 - Urinary tract infection, site not specified Medications at Discharge Home Medications metoprolol tartrate 100 mg PO BID 08/14/19 apixaban 2.5 mg PO BID 10/07/21 cefdinir 300 mg PO BID #18 cap 10/09/21 Hospital Course Summary of Care Provided Minutes Spent on Discharge: 20 Hospital Course: Patient is an 80-year-old female who was admitted to [facility] on 10/07/2021 for evaluation and management of sepsis secondary to urinary tract infection. Patient was placed on empiric Rocephin for UTI. 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 coli. Patient's sepsis resolved with empiric Rocephin. Given marked improvement in patient clinical picture, infectious disease was consulted despite bacteremia. Patient was continued on 9 days of oral cefdinir to complete 10-day course. Patient is to follow-up with primary care provider within the next 2 weeks. Patient seen by Wally Eugene PA-C, under the supervision of Dr. Saab. Physical Exam Narrative Patient is a 80-year-old female comfortably resting in bed, alert and orient x3. Patient denies development of any new symptoms overnight. Does not appear in acute distress. Const alert, oriented x3 and no apparent distress HEENT normocephalic, head/scalp atraumatic and hearing grossly normal bilaterally Eyes PERRL, EOMs intact bilaterally and conjunctivae normal Neck no lymphadenopathy and no JVD Resp normal respiratory effort, no retractions and no use of accessory muscles Cardio regular rate, regular rhythm and no JVD GI normal to inspection, nondistended, normoactive bowel sounds Extremity normal to inspection Skin no rashes or lesions noted Neuro CN's II-XII intact bilaterally Psych affect normal Weight / BMI Weight Weight: 108 lb 14.534 oz Body Mass Index (BMI) 17.0 ABG / Lab / Microbiology Data Result Diagrams: 10/09/21 06:15 10/09/21 06:15 Laboratory: Laboratory Results - last 24 hr 10/09/21 06:15: WBC 8.0, RBC 3.65 L, Hgb 12.3, Hct 37.4, MCV 102.5 H, MCH 33.7 H, MCHC 32.9, RDW Std Deviation 48.6 H, RDW Coeff of Mike 13.0, Plt Count 121 L, MPV 12.6 H, Immature Gran % (Auto) 0.400, Neut % (Auto) 70.0, Lymph % (Auto) 16.7 L, [place] % (Auto) 11.7 H, Eos % (Auto) 0.7, Baso % (Auto) 0.5, Absolute Neuts (auto) 5.6, Absolute Lymphs (auto) 1.34, Nucleated RBC % 0 10/09/21 06:15: Sodium 137, Potassium 3.9, Chloride 108 H, Carbon Dioxide 22.0, Anion Gap 7, BUN 30 H, Creatinine 0.92, Estim Creat Clear Calc 36.77, Est GFR (MDRD) Af Amer 75, Est GFR (MDRD) Non-Af 62, BUN/Creatinine Ratio 32.5 H, Glucose 95, Calcium 8.4 L, Total Bilirubin 1.10 H, AST 37, ALT 15, Alkaline Phosphatase 56, Total Protein 5.5 L, Albumin 2.1 L, Globulin 3.4, Albumin/Globulin Ratio 0.6 L Microbiology: Microbiology 10/06/21 23:00 Urine, Clean Catch Urine Culture - Final Presumptive E. 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 10/07/21 00:05 Blood Culture (Wb) - Left Forearm Blood Culture - Final Escherichia coli 10/07/21 00:05 Nasal Secretion SARS-CoV-2 Antigen (Rapid) - Final 10/06/21 23:35 Mucosa - Nasopharyngeal Influenza Types A,B Direct FA (OLEKSANDR) - Final D/C Instructions Discharge Diet: No restrictions Weight Bearing Status: Weight bearing as tolerated Call your doctor if you observe: Fever of 101 or Higher, Numbness or Tingling, Shortness of breath, Dizziness, Chest pain, Increased palpitations (irregular heartbeat) and Calf discomfort Please Follow Up With: Primary care provider When: Within the next two weeks. Meaningful Use Info Meaningful Use Diagnoses (Choose all that apply): None applicable Discharge Plan Admission Admit Date/Time: 10/07/21 02:51 Primary Reason for Your Visit: Sepsis secondary to urinary tract infection. Attending Provider: Benito Saab Primary Care Provider: Bárbara Temple Discharge Orders/Prescriptions Prescriptions: New cefdinir 300 mg capsule 300 mg PO BID Qty: 18 RF: 0 Continued metoprolol tartrate 100 MG tablet 100 mg PO BID RF: 0 apixaban 2.5 MG tablet 2.5 mg PO BID RF: 0 Discontinued ciprofloxacin HCl 500 MG tablet 500 mg PO BID Qty: 14 RF: 0 Referrals / Follow Up: Bárbara Temple MD [Primary Care Provider] - Within 2 Weeks Disposition Disposition (needs filled in before D/C Order can be placed): Home, Self Care Documented by User: Dr. Benito Saab MD 10/09/21 15:54 Providers Date of Admission: 10/07/21 Reason For Visit: SEPSIS Medications at Discharge Home Medications metoprolol tartrate 100 mg PO BID 08/14/19 apixaban 2.5 mg PO BID 10/07/21 cefdinir 300 mg PO BID #18 cap 10/09/21 Hospital Course Operations None Summary of Care Provided Minutes Spent on Discharge: 45 Hospital Course: This patient was seen in conjunction with Wally Eugene PA-C. I have independently interviewed and examined the patient and reviewed pertinent historical, laboratory, and other data. Please refer to Wally Eugene PA-C's note for details of this patient's presentation, findings, and recommendations. I have reviewed Wally Eugene PA-C's note and concur with documented findings. In brief, patient is a is an 80-year-old lady brought to the ED after her found patient on the floor. Her assessment on admission was consistent with sepsis secondary to UTI admitted to a monitored bed for further management Physical Examination: GENERAL: cooperative frail looking HEENT: Atraumatic; EYES; Anicteric, Normal Conjunctiva NECK; supple, normal thyroid, RESPIRATORY: Diminished to auscultation CARDIOVASCULAR: Regular S1 S2, GI: soft, normoactive bowel sounds, : No Renal angle tenderness; EXTREMITIES: No edema, no clubbing, MUSCULOSKELETAL: no muscle wasting NEURO: Awake; no lateralizing signs. SKIN: No Rash PSYCH; Flat affect Assessment: 1. Sepsis secondary to UTI with E. coli 2. A. fib with RVR 3. History of previous DVT on Eliquis 4. Acute kidney injury 5. Essential hypertension Hospital course; as documented above Total time spent by myself and the advanced practice practitioner evaluating patient, reviewing labs, subsequent management decisions, discussion with patient as well as other providers 45 minutes ( 25 of which was spent by myself) ABG / Lab / Microbiology Data Result Diagrams: 10/09/21 06:15 10/09/21 06:15 Discharge Plan Admission Admit Date/Time: 10/07/21 02:51 Primary Reason for Your Visit: Sepsis secondary to urinary tract infection. Attending Provider: Benito Saab Primary Care Provider: Bárbara Temple Discharge Orders/Prescriptions Prescriptions: New cefdinir 300 mg capsule 300 mg PO BID Qty: 18 RF: 0 Continued metoprolol tartrate 100 MG tablet 100 mg PO BID RF: 0 apixaban 2.5 MG tablet 2.5 mg PO BID RF: 0 Discontinued ciprofloxacin HCl 500 MG tablet 500 mg PO BID Qty: 14 RF: 0 Referrals / Follow Up: Bárbara Temple MD [Primary Care Provider] - Within 2 Weeks Disposition Disposition (needs filled in before D/C Order can be placed): Home, Self Care Charges/Coding Visit Charges Inpatient E&M: 01812 Disch Hosp Hospital Course Operations None
== END 2021-10-09 15:02 | disposition home or self-care (01) | DRG 690 ==
LOC: ED 10-07 01:09 → PCU 10-07 04:35
PROVIDERS: Internal Medicine; Admitting Provider Family Medicine; Emergency Provider Emergency Medicine; PCP Internal Medicine; Visit Provider Internal Medicine
DX: N39.0 Urinary tract infection, site not specified (principal); I48.92 Unspecified atrial flutter; N17.9 Acute kidney failure, unspecified; I48.0 Paroxysmal atrial fibrillation; E86.0 Dehydration; I10 Essential (primary) hypertension; Z20.822 Contact with and (suspected) exposure to COVID-19; Z79.01 Long term (current) use of anticoagulants; Z79.899 Other long term (current) drug therapy; Z85.41 Personal history of malignant neoplasm of cervix uteri; Z87.891 Personal history of nicotine dependence
CPT/HCPCS: 36415; 71045; 80048; 80053; 81001; 83605; 84484; 85025; 87040; 87077; 87086; 87088; 87186; 87426; 87804; 93005; 97162; 97166; 97530; 97535; 97802; 99285; J7030; A4216; J0696

== ENCOUNTER 2022-05-03 19:21 | Emergency (ER) | payer MEDICARE, SELFPAY ==
[2022-05-03 19:28] VITALS: BP 111/97; PULSE 103; RESP 22; TEMP 36.6; O2SAT 97; BMI 17.0
[2022-05-03 19:31] VITALS: BP 111/97; PULSE 93; RESP 21; O2SAT 97
--- NOTE | 2022-05-03 19:44 | EKG12_ITS ---
Test Reason : DYSRHYTHMIA Blood Pressure : / mmHG Vent. Rate : 122 BPM Atrial Rate : 441 BPM P-R Int : 000 ms QRS Dur : 088 ms QT Int : 336 ms P-R-T Axes : 000 081 044 degrees QTc Int : 478 ms Atrial fibrillation Septal infarct , age undetermined Abnormal ECG Confirmed by DAVID ROBINS, MAIKEL ([id number]), editor map SADAF DELUNA ([id number]) on 05/04/2022 10:10:12 AM Referred By: TORITO Confirmed By:MAIKEL HERNANDEZ MD
--- NOTE | 2022-05-03 19:44 | EX.ED.DYSGE1 ---
HPI History of Present Illness Chief Complaint: Weakness Detail of Chief Complaint: Patient states she has no complaints. was concerned [facility] Medical History Cervical cancer Essential hypertension Paroxysmal atrial fibrillation Paroxysmal atrial flutter Home Medications metoprolol tartrate 100 mg tablet 100 mg PO BID bp 08/14/19 [History Last Taken 08/14/19] apixaban 2.5 mg tablet 2.5 mg PO BID BLOOD 10/07/21 [History Last Taken Unknown] cefdinir 300 mg capsule 300 mg PO BID #18 caps 10/09/21 [Rx Last Taken Unknown] Allergy/AdvReac Type Severity Reaction Status Date / Time Iodine and Iodide Containing Allergy Severe rash Verified 05/03/22 19:28 Produc codeine AdvReac Unknown Unknown Verified 05/03/22 19:28 Family History Mother Congestive heart failure (CHF) Sister Atrial fibrillation Surgical History History of hysterectomy Social History Smoking Status: Former smoker how long ago did patient quit smokin years ago alcohol intake: current alcohol intake frequency: 0-2 drinks per day substance use type: does not use caffeine: Yes Type: coffee Number of servings: 1 EXAM Physical Exam Const Vital Signs: 05/03/22 19:28 05/03/22 19:31 05/03/22 19:32 Temperature 97.8 F Temperature Source Temporal Pulse Rate 103 H 93 Respiratory Rate 22 H 21 H Respiratory Effort Normal Respiratory Pattern Normal Blood Pressure 111/97 H 111/97 H Blood Pressure Mean 101 101 Pulse Ox 97 97 Oxygen Delivery Method Room Air Room Air [facility] Lab Data Attestation: I reviewed the patient's lab results. Lab results narrative: There is no evidence of anemia. Electrolyte panel for slight elevation in creatinine compared to baseline. Labs: Laboratory Results - last 24 hr 05/03/22 05/03/22 19:54 19:54 WBC 11.4 H RBC 4.11 L Hgb 13.8 Hct 41.2 MCV 100.2 H MCH 33.6 H MCHC 33.5 RDW Std Deviation 52.6 H RDW Coeff of Mike 14.2 Plt Count 155 MPV 10.8 Immature Gran % (Auto) 0.500 Neut % (Auto) 77.6 H Lymph % (Auto) 10.4 L [place] % (Auto) 11.0 H Eos % (Auto) 0.1 Baso % (Auto) 0.4 Absolute Neuts (auto) 8.9 H Absolute Lymphs (auto) 1.18 Nucleated RBC % 0 Sodium 137 Potassium 4.4 Chloride 104 Carbon Dioxide 26.0 Anion Gap 7 BUN 24 H Creatinine 1.21 H Estim Creat Clear Calc 27.47 Est GFR (MDRD) Af Amer 55 L Est GFR (MDRD) Non-Af 45 L BUN/Creatinine Ratio 19.8 Glucose 144 H Calcium 8.9 EKG Initial EKG: Attestation: I personally reviewed and interpreted this EKG as follows: Interpretation: Atrial Fibrillation (Ventricular rate is 122. There is decreased anterior force. QRS duration and QT duration are unremarkable. [place] is normal.) Discharge Plan Triage Chief Complaint: Weakness ED Provider: Patrice Cole Dx/Rx/DC Orders Clinical Impression: Atrial fibrillation, Acute renal insufficiency, Anticoagulant long-term use Instructions: ED AFIB, ED Renal Insufficiency Prescriptions: No Action metoprolol tartrate 100 MG tablet 100 mg PO BID apixaban 2.5 MG tablet 2.5 mg PO BID cefdinir 300 mg capsule 300 mg PO BID Qty: 18 0RF Primary Care Provider: Bárbara Temple Referrals: Bárbara Temple MD [Primary Care Provider] - 5-7 Days Activity Restrictions/Additional Instructions: Contact Dr. Temple's office to have basic metabolic panel drawn later this coming week. This is to assess your creatinine since it was elevated from baseline. Disposition Disposition: Home, Self Care
[2022-05-03 20:06] LABS: Absolute Lymphocyte Count 1.18 X10^3/uL (0.83-4.51); Absolute Neutrophil Count 8.9 X10^3/uL (2.0-7.7); Basophil# 0.04 X10^3/uL; Basophil% 0.4 % (0-1); Eosinophil# 0.01 X10^3/uL; Eosinophils% 0.1 % (0-5); Hematocrit 41.2 % (37-47); Hemoglobin 13.8 g/dL (12.0-15.0); Lymphocyte # 1.18 X10^3/ul (0.83-4.51); Lymphocyte % 10.4 % (19-41); Mean Corp Hgb Conc 33.5 g/dL (32-36); Mean Corpuscular Hgb 33.6 pg (27.0-32.0); Mean Corpuscular Volume 100.2 fL (81-99); Mean Platelet Vol. 10.8 fl (6.2-12.0); Monocyte# 1.25 X10^3/uL; NRBC Flagged by Analyzer 0 % (0-5); Neutrophil # 8.86 X10^3/uL (2.7-7.7); Neutrophil % 77.6 % (47-70); Platelet Count 155 K/mm3 (150-450); RBC Distribution Width CV 14.2 % (11.6-14.6); RBC Distribution Width SD 52.6 fl (35.1-43.9); Red Blood Count 4.11 M/mm3 (4.2-5.4); White Blood Count 11.4 K/mm3 (4.4-11.0)
--- NOTE | 2022-05-03 20:19 | ED.RN ---
APPROACHED ME AT THE NURSING DESK. INFORMED ME SHE NEEDED TO US THE RESTROOM AND THAT SHE WAS UNHOOKING HERSELF. PT REQUEST TO WALK THE BATHROOM. WHILE ESCORTING PT TO THE RESTROOM SHE INFORMED DR OCONNOR SHE WANTED TO GO HOME. Flakita WATTS RN 2020
[2022-05-03 20:26] LABS: Anion Gap 7 (5-15); BUN 24 mg/dL (7-18); BUN/Creat Ratio 19.8 RATIO (10-20); Calcium,Total 8.9 mg/dL (8.5-10.1); Chloride 104 mmol/L (98-107); Creatinine, Serum 1.21 mg/dL (0.55-1.02); EST Glomerular Filtration Rate 45 mL/min (>60); Est Glom Filt Rate - Afr Amer 55 mL/min (>60); Estimated Creatinine Clearance 27.47 ml/min; Glucose 144 mg/dL (74-106); Potassium 4.4 mmol/L (3.5-5.1); Sodium Level 137 mmol/L (136-145)
[2022-05-03 21:59] VITALS: BP 138/84; PULSE 101; RESP 16; O2SAT 96
== END 2022-05-03 22:00 | disposition home or self-care (01) ==
PROVIDERS: Emergency Provider Emergency Medicine; PCP Internal Medicine; Visit Provider Emergency Medicine
DX: I48.0 Paroxysmal atrial fibrillation (principal); R53.1 Weakness; I10 Essential (primary) hypertension; N28.9 Disorder of kidney and ureter, unspecified; Z87.891 Personal history of nicotine dependence; Z79.899 Other long term (current) drug therapy; Z79.01 Long term (current) use of anticoagulants
CPT/HCPCS: 80048; 85025; 93005; 99285; A4216

== ENCOUNTER 2022-09-19 18:59 | Inpatient (IN) | payer MEDICARE, SELFPAY ==
[2022-09-19 19:03] VITALS: BP 133/84; PULSE 76; RESP 16; TEMP 36.8; O2SAT 97; BMI 19.1
[2022-09-19] MEDS: Ondansetron 4 MG/2 ML Vial IV (19:51)
[2022-09-19] MEDS: Morphine 4 MG/ML Syringe IV (19:51)
[2022-09-19 19:52] LABS: Absolute Lymphocyte Count 1.79 X10^3/uL (0.83-4.51); Absolute Neutrophil Count 5.4 X10^3/uL (2.0-7.7); Basophil# 0.08 X10^3/uL; Eosinophil# 0.42 X10^3/uL; Eosinophils% 5.1 % (0-5); Hematocrit 43.9 % (37-47); Hemoglobin 14.2 g/dL (12.0-15.0); Lymphocyte # 1.79 X10^3/ul (0.83-4.51); Lymphocyte % 21.8 % (19-41); Mean Corp Hgb Conc 32.3 g/dL (32-36); Mean Corpuscular Hgb 32.6 pg (27.0-32.0); Mean Corpuscular Volume 100.7 fL (81-99); Mean Platelet Vol. 10.4 fl (6.2-12.0); Monocyte% 6.1 % (0-10); NRBC Flagged by Analyzer 0 % (0-5); Neutrophil # 5.37 X10^3/uL (2.7-7.7); Neutrophil % 65.5 % (47-70); Platelet Count 175 K/mm3 (150-450); RBC Distribution Width CV 13.9 % (11.6-14.6); RBC Distribution Width SD 51.6 fl (35.1-43.9); Red Blood Count 4.36 M/mm3 (4.2-5.4); White Blood Count 8.2 K/mm3 (4.4-11.0)
--- NOTE | 2022-09-19 20:00 | RAD_ITS ---
STUDY: X-RAY - PELVIS AND RIGHT HIP REASON FOR EXAM: Female, 81 years old. Injury/Pain TECHNIQUE: 3 views of the pelvis and hip. COMPARISON: None. FINDINGS: There is a normal bowel gas pattern. There is postoperative change with surgical clips in the pelvis. There is diffuse demineralization of the osseous structures. Normal bilateral iliac wings, sacroiliac joints and visualized sacrum. Normal bilateral superior and inferior pubic rami. Normal pubic symphysis. Normal bilateral ischial tuberosities. Normal visualized femoral head. There is acute intertrochanteric fracture of the proximal femur with angulation and rotation. Normal acetabulum. Normal hip joint. RAD/HIP, UNI W/ Pelvis 2-3 Views IMPRESSION: Intertrochanteric fracture of the right proximal femur. Electronically Signed: Gerardo Stinson MD at 20:54 EST ,
--- NOTE | 2022-09-19 20:00 | RAD_ITS ---
STUDY: X-RAY CHEST REASON FOR EXAM: Female, 81 years old. Cough TECHNIQUE: Single AP portable view of the chest. The patient is rotated. COMPARISON: October 07, 2021 FINDINGS: There is hyperinflation of the lungs consistent with chronic obstructive lung disease (COPD). There is no demonstrated pleural abnormality. There is moderate cardiac enlargement. Normal mediastinum and nallely. Normal visualized pulmonary arteries. Normal visualized aortic arch and descending thoracic aorta. There is demineralization of the osseous structures. There is a levoscoliosis of the thoracic spine. Normal visualized ribs, clavicles, and shoulders. There is no demonstrated abnormality of the visualized soft tissue structures of the upper abdomen. RAD/Chest 1 View (Portable) IMPRESSION: Cardiac enlargement. No focal infiltrate. Electronically Signed: Gerardo Stinson MD at 20:51 EST ,
[2022-09-19 20:03] LABS: International Normalized Ratio 1.3; Prothrombin Time (Protime)PT. 15.5 SECONDS (11.7-14.9)
[2022-09-19 20:04] LABS: Partial Thromboplast Time 26.6 Seconds (24.1-36.2)
[2022-09-19 20:05] LABS: Anion Gap 7 (5-15); BUN 25 mg/dL (7-18); Calcium,Total 8.9 mg/dL (8.5-10.1); Chloride 104 mmol/L (98-107); Creatinine, Serum 1.39 mg/dL (0.55-1.02); EST Glomerular Filtration Rate 38 mL/min (>60); Est Glom Filt Rate - Afr Amer 47 mL/min (>60); Estimated Creatinine Clearance 26.72 ml/min; Glucose 120 mg/dL (74-106); Potassium 4.5 mmol/L (3.5-5.1); Sodium Level 138 mmol/L (136-145)
[2022-09-19 20:41] LABS: Bacteria 0 SEEN /hpf (None Seen); Mucous, Urine 0 SEEN /hpf (<or=2+); Red Blood Cells-Urine 0 SEEN /hpf (0-5); Squamous Epithelial Cells - UA 0 SEEN /hpf (5-10)
[2022-09-19 20:55] LABS: Glucose, Dipstick Normal (Normal); Ketone-Dipstick 5 mg/dl (Negative); Leukocyte Esterase-Dipstick 500 /ul (Negative); Nitrite-Dipstick Negative (Negative); Occult Blood-Urine 150 /ul (Negative); Protein-Dipstick 100 mg/dl (Negative); Specific Gravity, Urine 1.015 (1.002-1.030); Urine Bilirubin Dipstick Negative (Negative); Urine Urobilinogen 1 mg/dl (Normal)
--- NOTE | 2022-09-19 21:01 | ED.VIS.FALL ---
HPI HPI - Fall History of Present Illness Chief Complaint: Fall Informant: patient and spouse/S.O. Occured/Mechanism Occurred: Today Mechanism/Context: Yes slip Pain/Injury Location: Right hip Quality of Pain: Sharp Worsened by: Movement Relieved by: Nothing Associated Symptoms Associated Symptoms: Positive for Inability to ambulate; Negative for Parasthesias, Weakness, Loss of function, Loss of consciousness or Amnesia Narrative Narrative: Presents with right hip pain that began after a fall today. Patient states she slipped on the wet floor and landed on her right hip. Patient states she was unable to ambulate after the fall. Patient denies any paresthesias or weakness. Patient denies any syncopal episode. Patient denies any chest pain or palpitations. Patient states her pain is sharp and is worse with movement. Patient denies any radiation of the pain. Patient denies any other injuries. [facility] Medical History (Updated 09/19/22 @ 23:[address] Filomena Jamil MD) Cervical cancer Essential hypertension Former smoker Paroxysmal atrial fibrillation Paroxysmal atrial flutter Sleep apnea Home Medications apixaban 2.5 mg tablet 2.5 mg PO BID BLOOD 10/07/21 [History Last Taken Unknown] metoprolol tartrate 100 mg tablet 100 mg PO BID BLOOD PRESSURE 09/19/22 [History Last Taken Unknown] Allergy/AdvReac Type Severity Reaction Status Date / Time Iodine and Iodide Containing Allergy Severe rash Verified 09/19/22 19:05 Produc codeine AdvReac Unknown Unknown Verified 09/19/22 19:05 Family History Mother Congestive heart failure (CHF) Sister Atrial fibrillation Surgical History History of hysterectomy Social History Smoking Status: Former smoker how long ago did patient quit smokin years ago alcohol intake: current alcohol intake frequency: 0-2 drinks per day substance use type: does not use caffeine: Yes Type: coffee Number of servings: 1 ROS ROS ED Constitutional Constitutional ED: Denies chills or fever(s) Eyes Eyes: Denies blurry vision or change in vision ENT ENT ED: Denies rhinorrhea or sore throat Cardiovascular Cardiovascular: Denies chest pain or palpitations Respiratory/Chest Respiratory/Chest: Denies cough or dyspnea Gastrointestinal Gastrointestinal: Denies nausea or vomiting Genitourinary Genitourinary ED: Denies dysuria or hematuria Musculoskeletal Musculoskeletal: Denies back pain or neck pain Integumentary Denies abscess or rash Neurologic Neurologic: Denies headache(s) or weakness Allergic/Immunologic Allergic/Immunologic ED: Denies mouth swelling or urticaria EXAM Physical Exam Const Vital Signs: 09/19/22 19:03 09/19/22 19:06 09/19/22 22:04 Temperature 98.2 F 98.6 F Temperature Source Temporal Oral Pulse Rate 76 85 Respiratory Rate 16 22 H Respiratory Effort Normal Non-Labored Respiratory Depth Normal Respiratory Pattern Normal Blood Pressure 133/84 H 136/97 H Blood Pressure Mean 100 110 Pulse Ox 97 96 Oxygen Delivery Method Room Air Room Air Room Air Positive well nourished and well developed General Appearance ED: well developed and NAD HEENT Reports normocephalic atraumatic Eyes PERRL and EOMs intact bilaterally Neck full ROM and supple Resp normal respiratory effort and clear to auscultation bilaterally Cardio regular rate Rhythm: abnormal rhythm irregularly irregular GI non-tender Palpation: soft Extremity Extremity Narrative: There is tenderness over the right hip area. There is some mild shortening and external rotation. There is pain with internal and external rotation. Range of motion was limited in all motions of the right hip secondary to pain. Pedal pulses are equal bilaterally. Sensation was intact to light touch in all digits. Capillary refill was less than 2 seconds in all digits. Neuro oriented x3, CN's II-XII intact bilaterally, moves all extremities, no focal motor deficits and no sensory deficits noted Sensorium / Orientation: alert Motor Exam: strength 5/5 throughout Psych mental status grossly normal MDM MDM MDM Narrative Medical decision making narrative: Differential diagnosis includes hip fracture, pelvic fracture, hip contusion, and muscle strain. X-rays of the right hip and pelvis will be obtained to assess for fracture. Lab Data Attestation: I reviewed the patient's lab results. Lab results narrative: CBC was reviewed and was essentially within normal limits. PT with INR and PTT were reviewed and pro time was slightly elevated at 15.5 and INR is 1.3. Basic metabolic profile was reviewed and showed a BUN of 25 and creatinine of 1.39. Glucose was normal. Labs: Laboratory Results - last 24 hr 09/19/22 09/19/22 09/19/22 19:40 19:40 19:40 WBC 8.2 RBC 4.36 Hgb 14.2 Hct 43.9 MCV 100.7 H MCH 32.6 H MCHC 32.3 RDW Std Deviation 51.6 H RDW Coeff of Mike 13.9 Plt Count 175 MPV 10.4 Immature Gran % (Auto) 0.500 Neut % (Auto) 65.5 Lymph % (Auto) 21.8 [place] % (Auto) 6.1 Eos % (Auto) 5.1 H Baso % (Auto) 1.0 Absolute Neuts (auto) 5.4 Absolute Lymphs (auto) 1.79 Nucleated RBC % 0 PT 15.5 H INR 1.3 APTT 26.6 Sodium 138 Potassium 4.5 Chloride 104 Carbon Dioxide 27.0 Anion Gap 7 BUN 25 H Creatinine 1.39 H Estim Creat Clear Calc 26.72 Est GFR (MDRD) Af Amer 47 L Est GFR (MDRD) Non-Af 38 L BUN/Creatinine Ratio 18.0 Glucose 120 H Calcium 8.9 Urine Color Urine Clarity Urine pH Ur Specific [place] Urine Protein Urine Glucose (UA) Urine Ketones Urine Occult Blood Urine Nitrite Urine Bilirubin Urine Urobilinogen Ur Leukocyte Esterase Urine RBC Urine WBC Ur Squamous Epith Cells Urine Bacteria Urine Mucus 09/19/22 20:37 WBC RBC Hgb Hct MCV MCH MCHC RDW Std Deviation RDW Coeff of Mike Plt Count MPV Immature Gran % (Auto) Neut % (Auto) Lymph % (Auto) [place] % (Auto) Eos % (Auto) Baso % (Auto) Absolute Neuts (auto) Absolute Lymphs (auto) Nucleated RBC % PT INR APTT Sodium Potassium Chloride Carbon Dioxide Anion Gap BUN Creatinine Estim Creat Clear Calc Est GFR (MDRD) Af Amer Est GFR (MDRD) Non-Af BUN/Creatinine Ratio Glucose Calcium Urine Color Yellow Urine Clarity Turbid Urine pH 6.0 Ur Specific [place] 1.015 Urine Protein 100 H Urine Glucose (UA) Normal Urine Ketones 5 H Urine Occult Blood 150 H Urine Nitrite Negative Urine Bilirubin Negative Urine Urobilinogen 1 H Ur Leukocyte Esterase 500 H Urine RBC 0 SEEN Urine WBC >100 SEEN Ur Squamous Epith Cells 0 SEEN Urine Bacteria 0 SEEN Urine Mucus 0 SEEN Radiography Diagnostic Testing: Clinical Impression(s) from Imaging Studies Chest X-Ray 09/19/22 20:00 IMPRESSION: Cardiac enlargement. No focal infiltrate. Electronically Signed: Gerardo Stinson MD at 20:51 EST Reading Location ID and State: [id number] / [place] , Service support , Hip/Pelvis X-Ray 09/19/22 20:00 IMPRESSION: Intertrochanteric fracture of the right proximal femur. Electronically Signed: Gerardo Stinson MD at 20:54 EST , X-rays of the right hip and pelvis were obtained. There are 3 views. On my independent interpretation, there is a intertrochanteric fracture of the right proximal femur. There is minimal angulation. Radiologist also interpreted the x-ray and agrees. Portable 1 view chest x-ray was obtained. On my independent interpretation, lung polanco are clear. There is mild cardiomegaly. Bony thorax is normal. There is no acute process noted. Radiologist also interpreted the x-ray and agrees. EKG Initial EKG: Attestation: I personally reviewed and interpreted this EKG as follows: Interpretation: No Acute Injury Pattern and Atrial Fibrillation (77) Prior EKG tracings: available for review Prior: Unchanged (05/03/2022) Treatment and Re-Evaluation Narrative: Patient was given morphine and Zofran. Because of the hip fracture, preoperative labs were obtained. CBC was obtained to assess for leukocytosis and anemia. Basic metabolic profile was obtained to assess for electrolyte abnormality and renal function. PT with INR and PTT were obtained to assess for coagulopathy. EKG was obtained to assess for cardiac dysrhythmia. Chest x-ray was obtained to assess for pneumonia and congestive heart failure. Urinalysis was obtained to assess for urinary tract infection. Case was discussed with Dr. Ramirez from orthopedics. He recommended admitting the patient to the hospitalist and obtaining a cardiology consult. He states he will likely do the surgery in the next couple days. Patient and family understand and are agreeable with the plan. All questions were answered. Discharge Plan Dx/Rx/DC Orders Clinical Impression: Hip fracture, right, Fall Disposition Disposition: Acute Care Hospital [facility] Discharge Date/Time: 09/19/22 22:42
[2022-09-19 21:27] LABS: Color, Urine Yellow (Yellow)
[2022-09-19 21:28] LABS: Urine Clarity Turbid (Clear); White Blood Cells >100 SEEN /hpf (0-5)
[2022-09-19] MEDS: HYDROmorphone 1 MG/ML Syringe 0.5 MG IV (21:53)
[2022-09-19 22:04] VITALS: BP 136/97; PULSE 85; RESP 22; TEMP 37; O2SAT 96
--- NOTE | 2022-09-19 22:33 | HP.PCM.HOS_ITS ---
HPI - General General Date of Admission: 09/19/22 Date of Service: 09/19/22 Chief Complaint: Fall HPI Narrative LANNY MACEDO, is a 81 F with a history of paroxysmal atrial fibrillation on chronic apixaban who presented to [facility] 09/19/2022 after mechanical fall at home she had slipped and then had sharp pain in her right hip worse with movement and difficulty with ambulation. She presented to the emergency room and x-ray of the right hip obtained which demonstrated intertrochanteric fracture right proximal femur. She was given morphine and Zofran and Dr. Chan was contacted in the ED, he recommended hospital admission as well as holding Eliquis and plan for surgery in the next several days. Hospitalist contacted for admission. Went to evaluate patient he was having the pain in her right hip/upper leg but had been resting comfortably after receiving pain medication. She denies having frequent falls and she denies injuring anything other than her hip when she fell and denies any bleeding or bruising. Has no other complaints at this time. [facility] Medical History (Updated 09/19/22 @ 23:[address] Filomena Jamil MD) Cervical cancer Essential hypertension Former smoker Paroxysmal atrial fibrillation Paroxysmal atrial flutter Sleep apnea Home Medications apixaban 2.5 mg tablet 2.5 mg PO BID BLOOD 10/07/21 [History Last Taken Unknown] Allergy/AdvReac Type Severity Reaction Status Date / Time Iodine and Iodide Containing Allergy Severe rash Verified 09/19/22 19:05 Produc codeine AdvReac Unknown Unknown Verified 09/19/22 19:05 Family History Mother Congestive heart failure (CHF) Sister Atrial fibrillation Surgical History History of hysterectomy Social History Smoking Status: Former smoker how long ago did patient quit smokin years ago alcohol intake: current alcohol intake frequency: 0-2 drinks per day substance use type: does not use caffeine: Yes Type: coffee Number of servings: 1 ROS ROS Narrative General: Denies fever or chills, denies weight change HENT: Denies headache, denies stuffy nose, denies sore throat EYES: Denies changes in vision Resp: Denies cough, denies shortness of breath Cardiac: Denies chest pain GI: Denies abdominal pain, denies changes in bowel, denies nausea, denies vomiting : Denies changes in urination Extremity: Denies swelling MSK: Has right upper leg/hip pain Neuro: Denies any numbness, denies tingling Heme: Denies any bleeding or bruising Skin: Denies rashes Psychiatric: No complaints voiced Vital Signs Vital Signs Vital Signs: 09/19/22 19:03 09/19/22 19:06 09/19/22 22:04 Temperature 98.2 F 98.6 F Temperature Source Temporal Oral Pulse Rate 76 85 Respiratory Rate 16 22 H Respiratory Effort Normal Non-Labored Respiratory Depth Normal Respiratory Pattern Normal Blood Pressure 133/84 H 136/97 H Blood Pressure Mean 100 110 Pulse Ox 97 96 Oxygen Delivery Method Room Air Room Air Room Air Weight Weight: 55.2 kg Body Mass Index (BMI) 19.1 Physical Exam Narrative General: Alert, no apparent distress, had slight difficulty answering questions immediately upon awakening but was more oriented and appropriate after several minutes HEENT: Atraumatic, normocephalic Eyes: Anicteric, normal conjunctiva, extraocular movements grossly intact Neck: Supple Respiratory: Clear to auscultation bilaterally, normal respiratory effort Cardiovascular: Regular rate and rhythm GI: Soft, nontender, nondistended Extremities: No edema Musculoskeletal: Moving all extremities but pain in right upper leg Neuro: No overt focal neurological deficits Skin: No rashes appreciated Psych: Cooperative Results Lab / Micro Data Result Diagrams: 09/19/22 19:40 09/19/22 19:40 Labs: Laboratory Results - last 24 hr 09/19/22 19:40: WBC 8.2, RBC 4.36, Hgb 14.2, Hct 43.9, MCV 100.7 H, MCH 32.6 H, MCHC 32.3, RDW Std Deviation 51.6 H, RDW Coeff of Mike 13.9, Plt Count 175, MPV 10.4, Immature Gran % (Auto) 0.500, Neut % (Auto) 65.5, Lymph % (Auto) 21.8, [place] % (Auto) 6.1, Eos % (Auto) 5.1 H, Baso % (Auto) 1.0, Absolute Neuts (auto) 5.4, Absolute Lymphs (auto) 1.79, Nucleated RBC % 0 09/19/22 19:40: PT 15.5 H, INR 1.3, APTT 26.6 09/19/22 19:40: Sodium 138, Potassium 4.5, Chloride 104, Carbon Dioxide 27.0, Anion Gap 7, BUN 25 H, Creatinine 1.39 H, Estim Creat Clear Calc 26.72, Est GFR (MDRD) Af Amer 47 L, Est GFR (MDRD) Non-Af 38 L, BUN/Creatinine Ratio 18.0, Glucose 120 H, Calcium 8.9 09/19/22 20:37: Urine Color Yellow, Urine Clarity Turbid, Urine pH 6.0, Ur Specific [place] 1.015, Urine Protein 100 H, Urine Glucose (UA) Normal, Urine Ketones 5 H, Urine Occult Blood 150 H, Urine Nitrite Negative, Urine Bilirubin Negative, Urine Urobilinogen 1 H, Ur Leukocyte Esterase 500 H, Urine RBC 0 SEEN, Urine WBC >100 SEEN, Ur Squamous Epith Cells 0 SEEN, Urine Bacteria 0 SEEN, Urine Mucus 0 SEEN Radiology Impression Chest X-Ray 09/19/22 20:00 IMPRESSION: Cardiac enlargement. No focal infiltrate. Electronically Signed: Gerardo Stinson MD at 20:51 EST , Hip/Pelvis X-Ray 09/19/22 20:00 IMPRESSION: Intertrochanteric fracture of the right proximal femur. Electronically Signed: Gerardo Stinson MD at 20:54 EST , Assessment & Plan Assessment/Plan (1) Intertrochanteric fracture of right femur: (2) Paroxysmal atrial fibrillation: PLAN: Plan #Intertrochanteric fracture of right proximal femur -Ortho contacted by ED physician and hospitalization and consult recommended, official Ortho consult placed -Holding Eliquis -Pain control -Given plan for surgery next several days we will let patient eat at this time until day of surgery is estimated or decided #Atrial fibrillation -Presently rate controlled A-fib on only Eliquis -Eliquis held -Monitor on telemetry at this time #CKD unclear stage and subtype -Last creatinine was in June was 1.21 prior to that had been variable, unclear where baseline is -Monitor BMP, avoid nephrotoxic agents -Had not endorsed any poor p.o. intake, given small fluid bolus over several hours and can continue with hydration pending repeat a.m. labs and nutritional status #DVT ppx: SCDs Filomena Jamil MD Time spent in the patient's overall evaluation,decision-making process, review of diagnostic data, adjustment of management, discussion with other providers, nursing nursing and ancillary staff involved in patient's care documentation, 51 minutes Charges/Coding Visit Charges Inpatient E&M: 19814 Init Hosp L2
[2022-09-19 22:59] VITALS: BMI 16.5
[2022-09-19] MEDS: Morphine 2 MG/ML Syringe IV (23:09)
[2022-09-19] MEDS: Acetaminophen 325 MG Tablet 650 MG PO (23:10)
[2022-09-19] MEDS: MELATONIN 3 MG TABLET PO (23:10)
[2022-09-19] MEDS: 0.9% Saline Lock 10 ML Syringe IV (23:14)
[2022-09-19 23:15] VITALS: BMI 16.5
[2022-09-19 23:16] VITALS: BP 124/84; PULSE 72; RESP 17; TEMP 36.6; O2SAT 94
[2022-09-20] VITALS (10 sets, daily range): BP systolic 94–115; BP diastolic 56–78; PULSE 60–91; RESP 12–17; TEMP 36.4–37.1; O2SAT 94–97
[2022-09-20] MEDS: Ceftriaxone 1 GM/50 ML BAG IV (00:37)
[2022-09-20] MEDS: 0.9% Normal Saline 1,000 ML 100 ML IV ×2 (00:37→23:46)
[2022-09-20] MEDS: Metoprolol Tartrate 50 MG Tablet PO ×2 (00:38→09:54)
[2022-09-20] MEDS: oxyCODONE 5 MG Tablet PO ×2 (00:41→05:24)
[2022-09-20] MEDS: Acetaminophen 325 MG Tablet 650 MG PO (05:24)
[2022-09-20] MEDS: Menthol/Lanolin/Calamine/Znox 113 GM Tube 1 APPLIC TOPICAL ×2 (05:24→20:26)
[2022-09-20 06:19] LABS: Absolute Neutrophil Count 7.2 X10^3/uL (2.0-7.7); Basophil# 0.05 X10^3/uL; Basophil% 0.5 % (0-1); Eosinophil# 0.03 X10^3/uL; Eosinophils% 0.3 % (0-5); Hematocrit 40.6 % (37-47); Hemoglobin 13.2 g/dL (12.0-15.0); Lymphocyte % 15.8 % (19-41); Mean Corp Hgb Conc 32.5 g/dL (32-36); Mean Corpuscular Hgb 32.6 pg (27.0-32.0); Mean Corpuscular Volume 100.2 fL (81-99); Mean Platelet Vol. 11.4 fl (6.2-12.0); Monocyte# 0.68 X10^3/uL; Monocyte% 7.2 % (0-10); NRBC Flagged by Analyzer 0 % (0-5); Neutrophil # 7.18 X10^3/uL (2.7-7.7); Neutrophil % 75.8 % (47-70); Platelet Count 168 K/mm3 (150-450); RBC Distribution Width CV 13.8 % (11.6-14.6); RBC Distribution Width SD 51.2 fl (35.1-43.9); Red Blood Count 4.05 M/mm3 (4.2-5.4); White Blood Count 9.5 K/mm3 (4.4-11.0)
[2022-09-20 06:50] LABS: ALB/GLOB Ratio 0.7 RATIO (0.9-2.4); AST(SGOT) 14 U/L (15-37); Alanine Aminotransfer ALT/SGPT 10 U/L (13-56); Albumin, Serum 2.7 g/dL (3.2-5.0); Alkaline Phosphatase 65 U/L (45-117); Anion Gap 8 (5-15); BUN 27 mg/dL (7-18); BUN/Creat Ratio 22.1 RATIO (10-20); Calcium,Total 8.9 mg/dL (8.5-10.1); Chloride 108 mmol/L (98-107); Creatinine, Serum 1.22 mg/dL (0.55-1.02); EST Glomerular Filtration Rate 45 mL/min (>60); Est Glom Filt Rate - Afr Amer 54 mL/min (>60); Estimated Creatinine Clearance 26.39 ml/min; Globulin 3.8 g/dL (2.2-4.2); Glucose 158 mg/dL (74-106); Potassium 4.9 mmol/L (3.5-5.1); Protein, Total 6.5 g/dL (6.4-8.2); Sodium Level 137 mmol/L (136-145)
[2022-09-20 08:13] LABS: International Normalized Ratio 1.3; Prothrombin Time (Protime)PT. 15.6 SECONDS (11.7-14.9)
[2022-09-20] MEDS: Ensure Plus High Protein 120 ML LIQUID PO ×4 (09:55→20:26)
--- NOTE | 2022-09-20 10:44 | PCM.CONS.C ---
Assessment & Plan Assessment/Plan (1) Preoperative cardiovascular examination: PLAN: Ideally I would like to further risk stratify this patient with a Lexiscan stress Myoview. However she is confused and will not be able to lie still for the procedure. She is hemodynamically stable. Presently normal sinus rhythm. No congestive heart failure. An echocardiogram is already been ordered for the patient. In her present status, no further cardiac work-up. If she is to go for surgery, please avoid major hemodynamic swings during and after anesthesia. (2) Paroxysmal atrial fibrillation: PLAN: Presently normal sinus rhythm. Recommend resuming her Eliquis after surgery provided her confusion is resolved. (3) Intertrochanteric fracture of right femur: PLAN: As per orthopedics. (4) Essential hypertension: PLAN: Continue metoprolol (5) Confusion: PLAN: As per hospitalist/internal medicine HPI Consult Data Date of Consult: 09/20/22 HPI Narrative Reason for Consultation: Preoperative cardiovascular risk assessment HPI Narrative: The patient has been admitted to the hospital with intertrochanteric fracture of her right femur. Surgery is being contemplated. We are asked to evaluate her cardiac risk for the proposed procedure. Patient presently is confused. According to the nurse, he has been confused. Alert oriented x1 only. Denies any complaints. She says she does not want any surgery and wants to go home. History is obtained from the chart. History of paroxysmal atrial fibrillation. [facility] Medical History (Updated 09/20/22 @ 10:[address] Sam Anderson MD) Cervical cancer Essential hypertension Former smoker Paroxysmal atrial fibrillation Paroxysmal atrial flutter Sleep apnea Home Medications apixaban 2.5 mg tablet 2.5 mg PO BID BLOOD 10/07/21 [History Last Taken Unknown] metoprolol tartrate 100 mg tablet 100 mg PO BID BLOOD PRESSURE 09/19/22 [History Last Taken Unknown] Allergy/AdvReac Type Severity Reaction Status Date / Time Iodine and Iodide Containing Allergy Severe rash Verified 09/19/22 19:05 Produc codeine AdvReac Unknown Unknown Verified 09/19/22 19:05 Family History Mother Congestive heart failure (CHF) Sister Atrial fibrillation Surgical History History of hysterectomy Social History Smoking Status: Former smoker how long ago did patient quit smokin years ago alcohol intake: current alcohol intake frequency: 0-2 drinks per day substance use type: does not use caffeine: Yes Type: coffee Number of servings: 1 Physical Exam Narrative Confused. Trying to pull IV. Heart sounds 1 and 2 noted. Regular rate and rhythm. Chest clear to auscultation. Alert oriented x1 only. No ankle edema. Risk Stratification Risk Stratification Applicable: No Objective Data Vital Signs: Vital Signs Temp Pulse Resp BP Pulse Ox O2 Del Method 97.5 F L 89 12 94/57 L 95 Room Air 09/20/22 09:41 09/20/22 09:54 09/20/22 09:41 09/20/22 09:41 09/20/22 09:41 09/20/22 09:41 Oxygen Delivery Method Room Air Weight: 105 lb 8 oz Body Mass Index (BMI) 16.5 Intake & Output: Intake and Output for Last 24 Hours 09/18/22 09/19/22 09/20/22 23:59 23:59 23:59 Intake Total 1208.33 / 1208.33 Output Total 500 / 500 Balance 708.33 / 708.33 Lab / Micro Data Attestation: I reviewed the patient's lab results. Result Diagrams: 09/20/22 05:45 09/20/22 05:45 Labs: Laboratory Results - last 24 hr 09/19/22 19:40: WBC 8.2, RBC 4.36, Hgb 14.2, Hct 43.9, MCV 100.7 H, MCH 32.6 H, MCHC 32.3, RDW Std Deviation 51.6 H, RDW Coeff of Mike 13.9, Plt Count 175, MPV 10.4, Immature Gran % (Auto) 0.500, Neut % (Auto) 65.5, Lymph % (Auto) 21.8, [place] % (Auto) 6.1, Eos % (Auto) 5.1 H, Baso % (Auto) 1.0, Absolute Neuts (auto) 5.4, Absolute Lymphs (auto) 1.79, Nucleated RBC % 0 09/19/22 19:40: PT 15.5 H, INR 1.3, APTT 26.6 09/19/22 19:40: Sodium 138, Potassium 4.5, Chloride 104, Carbon Dioxide 27.0, Anion Gap 7, BUN 25 H, Creatinine 1.39 H, Estim Creat Clear Calc 26.72, Est GFR (MDRD) Af Amer 47 L, Est GFR (MDRD) Non-Af 38 L, BUN/Creatinine Ratio 18.0, Glucose 120 H, Calcium 8.9 09/19/22 20:37: Urine Color Yellow, Urine Clarity Turbid, Urine pH 6.0, Ur Specific [place] 1.015, Urine Protein 100 H, Urine Glucose (UA) Normal, Urine Ketones 5 H, Urine Occult Blood 150 H, Urine Nitrite Negative, Urine Bilirubin Negative, Urine Urobilinogen 1 H, Ur Leukocyte Esterase 500 H, Urine RBC 0 SEEN, Urine WBC >100 SEEN, Ur Squamous Epith Cells 0 SEEN, Urine Bacteria 0 SEEN, Urine Mucus 0 SEEN 09/20/22 05:45: WBC 9.5, RBC 4.05 L, Hgb 13.2, Hct 40.6, MCV 100.2 H, MCH 32.6 H, MCHC 32.5, RDW Std Deviation 51.2 H, RDW Coeff of Mike 13.8, Plt Count 168, MPV 11.4, Immature Gran % (Auto) 0.400, Neut % (Auto) 75.8 H, Lymph % (Auto) 15.8 L, [place] % (Auto) 7.2, Eos % (Auto) 0.3, Baso % (Auto) 0.5, Absolute Neuts (auto) 7.2, Absolute Lymphs (auto) 1.50, Nucleated RBC % 0 09/20/22 05:45: PT 15.6 H, INR 1.3 09/20/22 05:45: Sodium 137, Potassium 4.9, Chloride 108 H, Carbon Dioxide 21.0, Anion Gap 8, BUN 27 H, Creatinine 1.22 H, Estim Creat Clear Calc 26.39, Est GFR (MDRD) Af Amer 54 L, Est GFR (MDRD) Non-Af 45 L, BUN/Creatinine Ratio 22.1 H, Glucose 158 H, Calcium 8.9, Total Bilirubin 0.80, AST 14 L, ALT 10 L, Alkaline Phosphatase 65, Total Protein 6.5, Albumin 2.7 L, Globulin 3.8, Albumin/Globulin Ratio 0.7 L 09/20/22 05:45: Blood Type AB POSITIVE, Antibody Screen NEGATIVE Micro: Microbiology 09/19/22 20:37 Urine Catheter - Loving Urine Culture - Preliminary GNR lactose sfdc developer Rhythm Strip Rhythm Strip: Sinus Rhythm Cardiology Labs/Tests 09/19/22 19:40: WBC 8.2, RBC 4.36, Hgb 14.2, Hct 43.9, MCV 100.7 H, MCH 32.6 H, MCHC 32.3, Plt Count 175, MPV 10.4, Immature Gran % (Auto) 0.500, Neut % (Auto) 65.5, Lymph % (Auto) 21.8, [place] % (Auto) 6.1, Eos % (Auto) 5.1 H, Baso % (Auto) 1.0, Absolute Neuts (auto) 5.4, Nucleated RBC % 0 09/19/22 19:40: PT 15.5 H, INR 1.3, APTT 26.6 09/19/22 19:40: Sodium 138, Potassium 4.5, Chloride 104, Carbon Dioxide 27.0, Anion Gap 7, BUN 25 H, Creatinine 1.39 H, Est GFR (MDRD) Af Amer 47 L, Est GFR (MDRD) Non-Af 38 L, BUN/Creatinine Ratio 18.0, Glucose 120 H, Calcium 8.9 09/19/22 20:37: Urine Color Yellow, Urine Clarity Turbid, Urine pH 6.0, Ur Specific [place] 1.015, Urine Protein 100 H, Urine Glucose (UA) Normal, Urine Ketones 5 H, Urine Occult Blood 150 H, Urine Nitrite Negative, Urine Bilirubin Negative, Urine Urobilinogen 1 H, Ur Leukocyte Esterase 500 H, Urine RBC 0 SEEN, Urine WBC >100 SEEN 09/20/22 05:45: WBC 9.5, RBC 4.05 L, Hgb 13.2, Hct 40.6, MCV 100.2 H, MCH 32.6 H, MCHC 32.5, Plt Count 168, MPV 11.4, Immature Gran % (Auto) 0.400, Neut % (Auto) 75.8 H, Lymph % (Auto) 15.8 L, [place] % (Auto) 7.2, Eos % (Auto) 0.3, Baso % (Auto) 0.5, Absolute Neuts (auto) 7.2, Nucleated RBC % 0 09/20/22 05:45: PT 15.6 H, INR 1.3 09/20/22 05:45: Sodium 137, Potassium 4.9, Chloride 108 H, Carbon Dioxide 21.0, Anion Gap 8, BUN 27 H, Creatinine 1.22 H, Est GFR (MDRD) Af Amer 54 L, Est GFR (MDRD) Non-Af 45 L, BUN/Creatinine Ratio 22.1 H, Glucose 158 H, Calcium 8.9, Total Bilirubin 0.80 Rhythm: EKG: Normal sinus rhythm ECHO: Stress Test: Cardiac Cath: PCI: CT Surgery: Holter monitor: EPS: PPM: CXR: Chest CT Scan: Radiography Diagnostic Testing: Radiology Impression Chest X-Ray 09/19/22 20:00 IMPRESSION: Cardiac enlargement. No focal infiltrate. Electronically Signed: Gerardo Stinson MD at 20:51 EST , Hip/Pelvis X-Ray 09/19/22 20:00 IMPRESSION: Intertrochanteric fracture of the right proximal femur. Electronically Signed: Gerardo Stinson MD at 20:54 EST ,
--- NOTE | 2022-09-20 12:34 | CASEMGMT ---
MOMO CM Note: Pt resting in bed w/eyes closed. Pt has been confused per report. Call placed to pt's , Rubia, at this time. He states he is getting ready to come to [facility] and will talk w/CM at that time. Lauren PRAKASHN RN CM
[2022-09-20] MEDS: 0.9% Normal Saline 1,000 ML 75 ML IV (12:57)
[2022-09-20] MEDS: Acetaminophen 500 MG Tablet 1000 MG PO ×2 (13:05→20:27)
--- NOTE | 2022-09-20 14:48 | CASEMGMT ---
RN?CM?SENIOR INTERNET SALES CONSULTANT?CM?to room to meet with pt and her for initial transition planning/care coordination?assessment.?RN?CM?introduced self and role at [facility].? Pt resting in bed in no distress at this time.? @ bedside. Pt is alert. Intermittent confusion. The following information was obtained from pt's . Care providers, pharmacy, and demographics verified/updated at this time. PCP: Dr Temple Specialists: Dr Pedraza-cardiology Preferred Pharmacy: [facility] Insurance: [facility] Prescription Benefit:?Yes Living Will/HPOA:? states pt has both LW and HCPOA, who is her and son, Steve, is 1st alternative. aware these are not on file @ [facility]. LNOK: , Rubia. 3 sons: Steve Verdin/EKATERINA, lives in [place]. Son in [place], Son in [place]. states they have been for 51 yrs and pt's sons are his step-sons. Living Arrangements: Pt lives w/ in one-story home w/basement w/4-5 steps to enter front door and ramp entrance @ back door. Pt is indep w/bathing and dressing. states he thought pt was managing her medications, stating he would ask her if she was taking them and she would tell him yes. He stated, Evidently she wasn't doing so well with them and I'm going to need to start doing them for her once she returns home. Per pt and , pt does not leave the house much. Pt stated the reason is because she has no where she wants to go. They have separate bedrooms and pt stays in her room often. states, She has herself a little den in there. Transportation:? states pt is only allowed to drive during the day, but he does not feel she should be driving at all, so he does most of the driving. DME: Pt has the following DME:?rubbermaid chair in the shower, RTS, rails, hand-held shower. Pt has a cane and walker available, if needed. states may be interested in a BSC. HHC/SNF: No hx of either. Discussed discharge planning. and pt both amenable to pt going to SNF @ discharge, if needed. He states he would like to be able to take her home, if possible, but states he wears oxygen @ home and uses a cane or walker @ a lot of times. He states he can get around some without them but can only go about 5 min before he has to sit back down. He states he also has a neighbor who can help w/taking care of her. Discussed limitations after a fracture and surgery and safety concerns. He again stated would be okay w/her going to a SNF, if needed, but would like to take her home, if able. He was made aware therapy would work w/pt after surgery and if he feels at that time that he can safely take care of her, then further discharge planning would be discussed. He voices understanding. PLAN:??Anticipate pt will need SNF @ discharge. states 1st choice is [facility]. Lauren BSN?RN?CM
--- NOTE | 2022-09-20 14:56 | CASEMGMT ---
Social Work Per RNCM pt does have a living will and health care POA naming her Rubia Da Silva. Rubia is aware documents are not on file and it has been reqested documents be brought in for scanning into the EMR. VIJI Garcia
--- NOTE | 2022-09-20 15:01 | CASEMGMT ---
Social Work SW received referral from RNCM that pt will likely need SNF at time of discharge and pt preferred provider is [facility]. SW met with pt and spouse and introduced self and role of SW. A list of SNF providers including quality and resource use data and consistent with the patient?s preferred geographic region, medical needs, and insurance network were provided from the [employer] Guide. Pt spouse confirms pt preferred provider is TCU. SW will make referral and SW requested list be reviewed and second and third choices be made in the event TCU cannot accept. Referral to TCU. SW will follow up after pt has surgery. VIJI Garcia
--- NOTE | 2022-09-20 18:24 | PCM.PN.HOSP ---
Reason for Visit Reason for Visit: Diagnoses Essential (primary) hypertension (09/19/22) Paroxysmal atrial fibrillation (09/19/22) Disorientation, unspecified (09/19/22) Displaced intertrochanteric fracture of right femur, initial encounter for closed fracture (09/19/22) Encounter for preprocedural cardiovascular examination (09/19/22) Subjective Subjective Patient was seen and examined today, I talked at length with her , he does not supervise her taking of her medications at home, it is unknown whether the patient is compliant with Eliquis, the last time she got it filled was August 10, 2022, he cannot find her bottle at home, he found an old bottle dated 02/13/2022 with 22 Eliquis pills in the bottle. Patient's also states that he takes her to her physicians appointments, he does not recall when she last saw her procedure rn-it appears from the medical record here at the hospital that she was last seen in Dr. Pedraza's office in 2019-patient's seemed unaware that had been that long since she had been seen by cardiology. Patient appeared to be moderately agitated today, I explained to her that she suffered a hip fracture and that she would need it repaired, and first she said she just wanted to go home but then she seemed to realize that it needed to be repaired for her to walk again and function. I talked with Dr. Bermudez about her care, at this point I think she is stable for surgery, I talked briefly with cardiology and cardiology stated that they did not feel she could undergo a stress test for preop clearance because of her dementia, I agreed with this, I feel the patient will need this hip fracture repaired in order to recover. I do not believe the patient needs an echocardiogram performed at this time. She has been seeing Dr. Pedraza for paroxysmal atrial fibrillation and hypertension. Objective Data Objective Data Vital Signs: Vital Signs Temp Pulse Resp BP Pulse Ox O2 Del Method 97.6 F L 70 14 113/78 97 Room Air 09/20/22 15:13 09/20/22 15:13 09/20/22 15:13 09/20/22 15:13 09/20/22 15:13 09/20/22 15:13 Oxygen Delivery Method Room Air Weight: 47.854 kg Body Mass Index (BMI) 16.5 Intake & Output: Intake and Output for Last 24 Hours 09/18/22 09/19/22 09/20/22 23:59 23:59 23:59 Intake Total 1863.33 / 1863.33 Output Total 690 / 690 Balance 1173.33 / 1173.33 Medical Nutrition Assessment Dietitian: Malnutrition Criteria Met Start: 09/20/22 13:28 Freq: Status: Active Protocol: Document 09/20/22 13:28 (Rec: 09/20/22 13:28 [id number]) Nutrition Malnutrition Evidence of Malnutrition Exists Yes Malnutrition (severe): Chronic Evidenced By Suboptimal Energy Intake ( Severe),Physical Changes ( Severe) Clinical Problem Chronic Disease or Condition Related Malnutrition Etiology severe, chronic malnutrition related to inadequate energy intake Signs/Symptoms as evidenced by severe muscle wasting/fat loss evident per physical exam in orbital, clavicle, acromion, and temporal areas; estimated PO intake meeting <75% of estimated energy needs > 3 months; BMI 16.5 Status Active Problem Recommendation Dietitian Recommendations/Changes continue regular diet; ensure plus high protein 120mL 4x/day and magic cup w/ meals for additional calories/protein if consumed Lab / Micro Data Result Diagrams: 09/20/22 05:45 09/20/22 05:45 Labs: Laboratory Results - last 24 hr 09/19/22 19:40: WBC 8.2, RBC 4.36, Hgb 14.2, Hct 43.9, MCV 100.7 H, MCH 32.6 H, MCHC 32.3, RDW Std Deviation 51.6 H, RDW Coeff of Imke 13.9, Plt Count 175, MPV 10.4, Immature Gran % (Auto) 0.500, Neut % (Auto) 65.5, Lymph % (Auto) 21.8, [place]undy % (Auto) 6.1, Eos % (Auto) 5.1 H, Baso % (Auto) 1.0, Absolute Neuts (auto) 5.4, Absolute Lymphs (auto) 1.79, Nucleated RBC % 0 09/19/22 19:40: PT 15.5 H, INR 1.3, APTT 26.6 09/19/22 19:40: Sodium 138, Potassium 4.5, Chloride 104, Carbon Dioxide 27.0, Anion Gap 7, BUN 25 H, Creatinine 1.39 H, Estim Creat Clear Calc 26.72, Est GFR (MDRD) Af Amer 47 L, Est GFR (MDRD) Non-Af 38 L, BUN/Creatinine Ratio 18.0, Glucose 120 H, Calcium 8.9 09/19/22 20:37: Urine Color Yellow, Urine Clarity Turbid, Urine pH 6.0, Ur Specific [place] 1.015, Urine Protein 100 H, Urine Glucose (UA) Normal, Urine Ketones 5 H, Urine Occult Blood 150 H, Urine Nitrite Negative, Urine Bilirubin Negative, Urine Urobilinogen 1 H, Ur Leukocyte Esterase 500 H, Urine RBC 0 SEEN, Urine WBC >100 SEEN, Ur Squamous Epith Cells 0 SEEN, Urine Bacteria 0 SEEN, Urine Mucus 0 SEEN 09/20/22 05:45: WBC 9.5, RBC 4.05 L, Hgb 13.2, Hct 40.6, MCV 100.2 H, MCH 32.6 H, MCHC 32.5, RDW Std Deviation 51.2 H, RDW Coeff of Mike 13.8, Plt Count 168, MPV 11.4, Immature Gran % (Auto) 0.400, Neut % (Auto) 75.8 H, Lymph % (Auto) 15.8 L, Dundy % (Auto) 7.2, Eos % (Auto) 0.3, Baso % (Auto) 0.5, Absolute Neuts (auto) 7.2, Absolute Lymphs (auto) 1.50, Nucleated RBC % 0 09/20/22 05:45: PT 15.6 H, INR 1.3 09/20/22 05:45: Sodium 137, Potassium 4.9, Chloride 108 H, Carbon Dioxide 21.0, Anion Gap 8, BUN 27 H, Creatinine 1.22 H, Estim Creat Clear Calc 26.39, Est GFR (MDRD) Af Amer 54 L, Est GFR (MDRD) Non-Af 45 L, BUN/Creatinine Ratio 22.1 H, Glucose 158 H, Calcium 8.9, Total Bilirubin 0.80, AST 14 L, ALT 10 L, Alkaline Phosphatase 65, Total Protein 6.5, Albumin 2.7 L, Globulin 3.8, Albumin/Globulin Ratio 0.7 L 09/20/22 05:45: Blood Type AB POSITIVE, Antibody Screen NEGATIVE Micro: Microbiology 09/19/22 20:37 Urine Catheter - Loving Urine Culture - Preliminary GNR lactose museum or zoo director Radiography Diagnostic Testing: Radiology Impression Chest X-Ray 09/19/22 20:00 IMPRESSION: Cardiac enlargement. No focal infiltrate. Electronically Signed: Gerardo Stinson MD at 20:51 EST , Hip/Pelvis X-Ray 09/19/22 20:00 IMPRESSION: Intertrochanteric fracture of the right proximal femur. Electronically Signed: Gerardo Stinson MD at 20:54 EST , Rhythm Strip Rhythm Strip: Sinus Rhythm Physical Exam Const alert Constitutional Narrative: Patient appears cachectic, she is confused but is directable at times and does not appear severely agitated after I had a lengthy discussion with her. She is oriented as to place and self General Appearance: cooperative and well developed Orientation / Consciousness: awake HEENT normocephalic, head/scalp atraumatic and moist oral mucous membranes Eyes PERRL, EOMs intact bilaterally and conjunctivae normal Neck supple, no JVD, thyroid normal and no carotid bruits General: trachea midline Resp normal respiratory effort, no retractions, no use of accessory muscles and clear to auscultation bilaterally Auscultation: Negative for rales, rhonchi or wheezes Cardio regular rate, regular rhythm, S1 normal heart sound, S2 normal heart sound, no murmurs, no rub and no gallops GI normal to inspection, nondistended, normoactive bowel sounds, soft to palpation, non-tender and non-distended Extremity Extremity Narrative: Patient has external rotation of her right leg Skin no rashes or lesions noted General Skin Exam: no breakdown Neuro CN's II-XII intact bilaterally, no focal motor deficits and no sensory deficits noted Sensorium / Orientation: awake, alert, oriented to person and oriented to place Speech: speech normal Psych Psych Narrative: Patient shows evidence of moderate confusion Assessment & Plan Assessment/Plan (1) Intertrochanteric fracture of right femur: PLAN: Plan 1. Closed intertrochanteric fracture of the right hip-again I feel the patient appears stable for surgical intervention at this time, because of her unknown compliance with Eliquis, surgery will be delayed till tomorrow afternoon. understands this. #2 paroxysmal atrial fibrillation-patient's Eliquis will be held, it may be a relative danger to have the patient on Eliquis due to her dementia. I will have to reevaluate this when she is discharged to a senior care facility after she is medically stable. #3 essential hypertension-patient is on metoprolol #4 dementia-complicates care, medical course, recovery, and prognosis Total clinical time spent by myself evaluating the patient's medical problems, reviewing all the data, and collaborating with patient's care team: 35 minutes Charges/Coding Visit Charges Inpatient E&M: 83862 Subs Hosp L2
[2022-09-20] MEDS: MELATONIN 3 MG TABLET PO (20:27)
[2022-09-20] MEDS: Morphine 2 MG/ML Syringe IV (23:44)
[2022-09-21] VITALS (15 sets, daily range): BP systolic 102–145; BP diastolic 62–132; PULSE 70–101; RESP 16–90; TEMP 36.2–37.5; O2SAT 80–100; BMI 16.5
[2022-09-21] MEDS: 0.9% Normal Saline 1,000 ML 100 ML IV (09:36)
[2022-09-21] MEDS: Metoprolol Tartrate 50 MG Tablet PO ×2 (09:42→23:00)
[2022-09-21] MEDS: 0.9% Saline Lock 10 ML Syringe IV (11:15)
[2022-09-21] MEDS: Morphine 2 MG/ML Syringe IV (11:15)
--- NOTE | 2022-09-21 11:27 | CON.PCM.OR_ITS ---
HPI Consult Data Date of Consult: 09/21/22 HPI Narrative Reason for Consultation: Right hip fracture HPI Narrative: LANNY MACEDO, is a 81 F who presents to [facility] via squad as result of a fall at home on 09/19/2022. Per the the patient was in her bedroom when she slipped falling onto her right hip. Patient was unable to weight-bear after the fall. Patient was found by the laying facedown. Patient is awake and alert however is confused secondary to dementia. She is very pleasant and a very poor historian. Patient does not remember falling but does know that her hip hurts. Patient at this time has no other complaints. Per the she has not sustained a fall in the past. She normally is a ctive and ambulates throughout the house without difficulty. Does have noted dementia and can be easily confused. Patient's reports that she has no history of any clotting or bleeding disorders but does take a blood thinner for an irregular heart rate. Patient denies any numbness or tingling of the upper and lower extremities. Denies any headaches or blurred vision. Denies chest pain, shortness of breath, calf pain, nausea vomiting. [facility] Medical History (Updated 09/20/22 @ 10:[address] Sam Anderson MD) Cervical cancer Essential hypertension Former smoker Paroxysmal atrial fibrillation Paroxysmal atrial flutter Sleep apnea Home Medications apixaban 2.5 mg tablet 2.5 mg PO BID BLOOD 10/07/21 [History Last Taken Unknown] metoprolol tartrate 100 mg tablet 100 mg PO BID BLOOD PRESSURE 09/19/22 [History Last Taken Unknown] Allergy/AdvReac Type Severity Reaction Status Date / Time Iodine and Iodide Containing Allergy Severe rash Verified 09/19/22 19:05 Produc codeine AdvReac Unknown Unknown Verified 09/19/22 19:05 Family History Mother Congestive heart failure (CHF) Sister Atrial fibrillation Surgical History History of hysterectomy Social History Smoking Status: Former smoker how long ago did patient quit smokin years ago alcohol intake: current alcohol intake frequency: 0-2 drinks per day substance use type: does not use caffeine: Yes Type: coffee Number of servings: 1 ROS ROS Narrative 10 review of systems were reviewed with the patient and her noted in the medical record. Eyes Eyes: Reports systems reviewed and no addt'l complaints, except as documented ENT HEENT: Reports systems reviewed and no addt'l complaints, except as documented Cardiovascular Cardiovascular: Reports systems reviewed and no addt'l complaints, except as documented and irregular heart rhythm Respiratory/Chest Respiratory/Chest: Reports systems reviewed and no addt'l complaints, except as documented Gastrointestinal Gastrointestinal: Reports systems reviewed and no addt'l complaints, except as documented Genitourinary Genitourinary: Reports systems reviewed and no addt'l complaints, except as documented Musculoskeletal Musculoskeletal: Reports systems reviewed and no addt'l complaints, except as documented, extremity pain and joint pain Integumentary Integumentary: Reports systems reviewed and no addt'l complaints, except as documented Neurologic Neurologic: Reports systems reviewed and no addt'l complaints, except as documented Psychiatric Psychiatric: Reports systems reviewed and no addt'l complaints, except as documented Endocrine Endocrinology: Reports systems reviewed and no addt'l complaints, except as documented Hematologic/Lymphatic Hematologic/Lymphatic: Reports systems reviewed and no addt'l complaints, except as documented Allergic/Immunologic Allergic/Immunologic: Reports systems reviewed and no addt'l complaints, except as documented Vital Signs Vital Signs Vital Signs: 09/20/22 14:52 09/20/22 14:57 09/20/22 15:13 Temperature 97.6 F L 97.6 F L Temperature Source Oral Oral Pulse Rate 68 70 70 Respiratory Rate 16 14 Respiratory Effort Normal Respiratory Depth Respiratory Pattern Blood Pressure 113/78 113/78 Blood Pressure [BP] Blood Pressure Mean 89 89 Blood Pressure Mean [BP] Blood Pressure Source Monitor Blood Pressure Source [BP] Blood Pressure Position Semi-Fowlers Blood Pressure Position [BP] Blood Pressure Location Right Arm Blood Pressure Location [BP] Pulse Ox 97 97 Oxygen Delivery Method Room Air Room Air 09/20/22 20:17 09/20/22 21:29 09/20/22 21:30 Temperature 97.9 F Temperature Source Oral Pulse Rate 69 60 Respiratory Rate 17 Respiratory Effort Respiratory Depth Respiratory Pattern Blood Pressure 102/57 L 97/56 L Blood Pressure [BP] 97/56 L Blood Pressure Mean 72 Blood Pressure Mean [BP] 69 Blood Pressure Source Blood Pressure Source [BP] Monitor Blood Pressure Position Blood Pressure Position [BP] Semi-Fowlers Blood Pressure Location Blood Pressure Location [BP] Right Arm Pulse Ox 94 Oxygen Delivery Method Room Air 09/20/22 21:00 09/21/22 06:48 09/21/22 07:24 Temperature 97.7 F L Temperature Source Temporal Pulse Rate 70 70 Respiratory Rate 16 Respiratory Effort Normal Respiratory Depth Normal Respiratory Pattern Normal Blood Pressure 112/62 Blood Pressure [BP] Blood Pressure Mean 78 Blood Pressure Mean [BP] Blood Pressure Source Blood Pressure Source [BP] Blood Pressure Position Blood Pressure Position [BP] Blood Pressure Location Blood Pressure Location [BP] Pulse Ox 98 Oxygen Delivery Method Room Air Room Air Room Air 09/21/22 09:42 09/21/22 09:47 Temperature 97.9 F Temperature Source Oral Pulse Rate 87 87 Respiratory Rate 16 Respiratory Effort Respiratory Depth Respiratory Pattern Blood Pressure 107/64 107/64 Blood Pressure [BP] Blood Pressure Mean 78 Blood Pressure Mean [BP] Blood Pressure Source Monitor Blood Pressure Source [BP] Blood Pressure Position Semi-Fowlers Blood Pressure Position [BP] Blood Pressure Location Left Arm Blood Pressure Location [BP] Pulse Ox 98 Oxygen Delivery Method Room Air Weight Weight: 47.854 kg Body Mass Index (BMI) 16.5 Physical Exam Narrative Upon exam I found patient lying in bed nursing staff at her bedside. Patient was awake and alert but confused to time and events. Patient was very verbal and talkative. Patient was no obvious respiratory distress speaking in full sentences. Patient had no signs of trauma to the head face and neck. Patient had no pain face cervical thoracic spine. Patient had full range of motion of the upper extremities with good muscle tone and strength. Patient had no signs of trauma to the anterior chest wall or abdomen. Patient has no signs of soft tissue trauma to the left or right hip. Patient is exquisitely tender to palpa tion over the greater trochanteric region of the right hip. Patient does have slight external rotation of the right leg with shortening. She has good flexion-extension of the knee but reported pain in the hip with motion of the knee. No calf tenderness. Patient has good cap refill no clubbing cyanosis edema of the lower extremities. Neurovascular she is otherwise intact. Const alert General Appearance: cooperative Orientation / Consciousness: confused HEENT normocephalic Eyes PERRL Resp normal respiratory effort Effort and Inspection: able to speak in complete sentences Cardio regular rate Extremity normal capillary refill Skin no rashes or lesions noted Neuro CN's II-XII intact bilaterally Psych Memory / Cognition: cognition impaired Medical Records Data Medical Nutrition Assessment Dietitian: Malnutrition Criteria Met Start: 09/20/22 13:28 Freq: Status: Active Protocol: Document 09/20/22 13:28 (Rec: 09/20/22 13:28 AG [id number]) Nutrition Malnutrition Evidence of Malnutrition Exists Yes Malnutrition (severe): Chronic Evidenced By Suboptimal Energy Intake ( Severe),Physical Changes ( Severe) Clinical Problem Chronic Disease or Condition Related Malnutrition Etiology severe, chronic malnutrition related to inadequate energy intake Signs/Symptoms as evidenced by severe muscle wasting/fat loss evident per physical exam in orbital, clavicle, acromion, and temporal areas; estimated PO intake meeting <75% of estimated energy needs > 3 months; BMI 16.5 Status Active Problem Recommendation Dietitian Recommendations/Changes continue regular diet; ensure plus high protein 120mL 4x/day and magic cup w/ meals for additional calories/protein if consumed Lab / Micro Data Result Diagrams: 09/20/22 05:45 09/20/22 05:45 Micro: Microbiology 09/19/22 20:37 Urine Catheter - Loving Urine Culture - Final Klebsiella pneumoniae sp pneum Rhythm Strip Rhythm Strip: Sinus Rhythm X-ray 3 views of the right hip shows patient does have a intertrochanteric fracture with displacement. No other acute bony abnormality or fractures noted of the pelvis or left hip. Assessment & Plan Assessment/Plan (1) Intertrochanteric fracture of right femur: PLAN: 1. Continue all pain medications as prescribed 2. Continue patient n.p.o. 3. Dr. Real Bermudez will be performing an ORIF of a intertrochanteric fracture of the right hip. 4. Continue ice to right hip. Patient remain nonweightbearing 5. Medicine will continue to medically manage, and restart Eliquis postoperatively.
--- NOTE | 2022-09-21 12:24 | CASEMGMT ---
Social Work Per physician pt may be appropriate for RU at time of discharge. JOSE spoke with Isabella in TCU/RU and updated. Beds are available in both units. Pt to have surgery later today. Pt will be evaluated for TCU/RU on Saturday. Precert will be needed prior to discharge. JOSE met with pt and and explained above and they are agreeable to discharge plan. Plan: TCU vs. RU, pending review after surgery and therapy uriel Marinelli, VIJI
--- NOTE | 2022-09-21 14:29 | NURSING ---
pt went down for surgery via bed. ATb was sent with escort.
[2022-09-21] MEDS: Lactated Ringers 1,000 ML 15 ML IV (14:50)
[2022-09-21] MEDS: Cefazolin 2 GM in 0.9% Normal Saline 100 ML IV (15:37)
--- NOTE | 2022-09-21 15:42 | RAD_ITS ---
EXAM: FL FLUOROSCOPY < 1 HOUR CLINICAL INDICATION: FX -- Fluoro time: 82.5 seconds -- Dose: 12.34 mGy TECHNIQUE: Fluoroscopic images performed in multiple projections. Fluoroscopic guidance was provided by a physician. 15 fluoroscopically guided spot images were obtained. A total of 82.5 seconds of fluoroscopy time was utilized. Radiation dose is 12.34 mGy. This report was created using [employer] report generation technology. COMPARISON: None. FINDINGS: BONES/JOINTS: Final images demonstrate nail fixation of a right intertrochanteric hip fracture. SOFT TISSUES: Unremarkable. RAD/Hip 1 view with Pelvis IMPRESSION: Nail fixation of a right intertrochanteric hip fracture. Electronically Signed: J Luis Haas MD at 18:43 EST ,
--- NOTE | 2022-09-21 16:19 | CASEMGMT ---
Social Work Isabella from TCU states TCU is able to accept pt. Precert to be started on Saturday after pt has had surgery and received therapy. Plan: U, pending precert VIJI Garcia
--- NOTE | 2022-09-21 16:23 | PCM.OP.BLANK ---
Problems Associated Problem List Diagnoses (1) Hip fracture, right: Operative Report Date of Procedure: 09/21/22 Preoperative diagnosis: Right hip displaced intertrochanteric fracture Postoperative diagnosis: Same Title of operation: R hip open reduction internal fixation, intramedullary nail fixation, locked Surgeon: Dr. Real Bermudez Classics Professor: Jackie NUGENT Anesthesia: General, Kancherla EBL: 50 Medications: Ancef Indications for surgery: Patient is an 81-year-old female sustained a hip fracture 09-19-22. Patient and their family explained diagnosis and treatment options. Patient evaluated by the medical services. Patient did wish to have surgery. Appropriate informed consent obtained and signed. Findings: Patient had a displaced intertrochanteric hip fracture. They underwent standard reduction, internal fixation using a Mahad short gamma nail. X-rays taken throughout. registered dental assistant, was utilized throughout the entire procedure. They were vital to the procedure from beginning to end. They help with patient transfer, patient padding and positioning, fracture reduction, maintenance of fracture reduction, internal fixation of implants, wound closure, bandage application, patient transfer. Without surgical aide, surgical time would have been significantly increased and surgical outcome could have been less optimal. Procedure: Patient was taken to the operating room. Placed under a general anesthetic and transferred to the operating table with the help of the access services assistant. With the help of the access services assistant patient was prepped and padded for surgery. Operative side foot was well-padded and placed in the traction boot. Uninjured lower extremity was abducted and flexed out of harms way. IRIS hose and SCDs utilized. Fluoroscopy was brought in. With the help of the access services assistant and manipulation of the limb, reduction was nicely obtained as verified under AP lateral and oblique fluoroscopic images. . Operative hip/thigh was prepped padded draped in usual orthopedic sterile fashion for the procedure. Longitudinal incision was made just proximal to the greater trochanter. Taken through skin and subcutaneous tissue. Sharp awl was placed on the tip of the greater trochanter. Position verified under AP and lateral fluoroscopic images. This was then taken down inside the bone. Slightly bent ball-tipped guide addis was then placed from the tip of the greater trochanter into the intra-medullary canal of the femur. Its position verified radiographically. Reamer was then done over the tip of this with the help of the access services assistant holding the soft tissue protector appropriately. Once reaming was done we placed the short 125? angle device over the guidepin. This was easily introduced. Guide addis removed. Outrigger device was utilized to position a guidepin from the lateral cortex of the femur across the fracture site and into the femoral head in a good position centrally, as noted on AP lateral and oblique fluoroscopic images. This was measured. Appropriate reaming done. Appreciate length lag screw was placed from the lateral cortex of the femur into the femoral head. A small amount of the screw was noted to be protruding laterally as planned. No cartilage penetration of the femoral head noted on any x-ray. Fracture was then compressed with the outrigger device. Proximal cap screw was placed by the access services assistant seated down completely, confirmed, and then loosened one fourth turn. We then used the outrigger device to place distal cross locking screw under standard technique. This was confirmed to be of adequate length in good position on AP and lateral images. Outrigger device removed. Final set of AP and lateral proximal x-rays taken and saved. Incisions thoroughly irrigated. Closing by the access services assistant with deep 0 Vicryl, mid layer 0 Vicryl, inverted 2-0 Vicryl, skin yolie. Puncture wounds closed with inverted 2-0 Vicryl and yolie. Xeroform 4 x 4's ABD tape applied. Patient was awoken from their anesthetic, transferred back to their own bed with the help of the access services assistant and into recovery room in satisfactory condition. Patient will continue to be admitted to the hospital under the hospitalist service. We will plan 50% weightbearing. She will resume antibiotic as prescribed for possible UTI. We will resume Eliquis 2.5 mg twice daily, her preoperative blood thinner. This note was generated with [employer] dictation software. It may contain incorrect words, spelling, and punctuation that were not noted in checking the note before signing.
--- NOTE | 2022-09-21 19:14 | PN.HOSP_ITS ---
Reason for Visit Reason for Visit: Diagnoses Essential (primary) hypertension (09/19/22) Paroxysmal atrial fibrillation (09/19/22) Disorientation, unspecified (09/19/22) Fracture of unspecified part of neck of right femur, initial encounter for closed fracture (09/19/22) Displaced intertrochanteric fracture of right femur, initial encounter for closed fracture (09/19/22) Encounter for preprocedural cardiovascular examination (09/19/22) Subjective Subjective Patient was seen and examined earlier today, she went for surgical repair of her hip fracture this afternoon and there were no complications according to orthopedic surgery. I talk with the patient extensively this morning about going to a rehab unit for rehab services, she did not appear to be opposed to this. Objective Data Objective Data Vital Signs: Vital Signs Temp Pulse Resp BP Pulse Ox O2 Del Method O2 Flow Rate 97.2 F L 80 18 102/90 H 92 Nasal Cannula 3 09/21/22 17:54 09/21/22 17:54 09/21/22 17:54 09/21/22 17:54 09/21/22 17:54 09/21/22 17:54 09/21/22 17:54 Oxygen Flow Rate (L/min) 3 Oxygen Delivery Method Nasal Cannula Weight: 47.854 kg Body Mass Index (BMI) 16.5 Intake & Output: Intake and Output for Last 24 Hours 09/19/22 09/20/22 09/21/22 23:59 23:59 23:59 Intake Total 2471.66 / 2621.66 1243.33 / 1243.33 Output Total 690 / 790 1110 / 1110 Balance 1781.66 / 1831.66 133.33 / 133.33 Medical Nutrition Assessment Dietitian: Malnutrition Criteria Met Start: 09/20/22 13:28 Freq: Status: Active Protocol: Document 09/20/22 13:28 (Rec: 09/20/22 13:28 [id number]) Nutrition Malnutrition Evidence of Malnutrition Exists Yes Malnutrition (severe): Chronic Evidenced By Suboptimal Energy Intake ( Severe),Physical Changes ( Severe) Clinical Problem Chronic Disease or Condition Related Malnutrition Etiology severe, chronic malnutrition related to inadequate energy intake Signs/Symptoms as evidenced by severe muscle wasting/fat loss evident per physical exam in orbital, clavicle, acromion, and temporal areas; estimated PO intake meeting <75% of estimated energy needs > 3 months; BMI 16.5 Status Active Problem Recommendation Dietitian Recommendations/Changes continue regular diet; ensure plus high protein 120mL 4x/day and magic cup w/ meals for additional calories/protein if consumed Lab / Micro Data Result Diagrams: 09/20/22 05:45 09/20/22 05:45 Micro: Microbiology 09/19/22 20:37 Urine Catheter - Loving Urine Culture - Final Klebsiella pneumoniae sp pneum Radiography Diagnostic Testing: Radiology Impression Hip/Pelvis X-Ray 09/21/22 15:42 IMPRESSION: Nail fixation of a right intertrochanteric hip fracture. Electronically Signed: J Luis Haas MD at 18:43 EST , Rhythm Strip Rhythm Strip: Sinus Rhythm Physical Exam Narrative Constitutional Narrative: Patient appears cachectic, she is confused but is directable at times and does not appear severely agitated after I had a lengthy discussion with her.? She is oriented as to place and self General Appearance: cooperative and well developed Orientation / Consciousness: awake HEENT normocephalic, head/scalp atraumatic and moist oral mucous membranes Eyes PERRL, EOMs intact bilaterally and conjunctivae normal Neck supple, no JVD, thyroid normal and no carotid bruits General: trachea midline Resp normal respiratory effort, no retractions, no use of accessory muscles and clear to auscultation bilaterally Auscultation: Negative for rales, rhonchi or wheezes Cardio regular rate, regular rhythm, S1 normal heart sound, S2 normal heart sound, no murmurs, no rub and no gallops GI normal to inspection, nondistended, normoactive bowel sounds, soft to palpation, non-tender and non-distended Extremity Extremity Narrative: Patient has external rotation of her right leg Skin no rashes or lesions noted General Skin Exam: no breakdown Neuro CN's II-XII intact bilaterally, no focal motor deficits and no sensory deficits noted Sensorium / Orientation: awake, alert, oriented to person and oriented to place Speech: speech normal Psych Psych Narrative: Patient shows evidence of moderate confusion Assessment & Plan Assessment/Plan (1) Intertrochanteric fracture of right femur: PLAN: Plan 1. Closed intertrochanteric fracture of the right hip-postop day 0 intramedullary nail fixation-PT and OT will see patient, she may be a candidate to go to either the rehab unit at [facility] or a correction facility for short-term rehab services. #2 paroxysmal atrial fibrillation-patient's Eliquis will be restarted after surgery #3 essential hypertension-patient is on metoprolol #4 dementia-complicates care, medical course, recovery, and prognosis #5 severe chronic caloric and protein malnutrition-related to inadequate energy intake as evidenced by severe muscle wasting/fat loss evident per physical exam and orbital, clavicular, acromion, and temporal areas-estimated p.o. intake meeting less than 75% of estimated energy needs over 3 months, continue regular diet, Ensure Plus high-protein 120 mL 4 times a day and Magic cup with meals for additional calories/protein if consumed Total clinical time spent by myself evaluating the patient's medical problems, reviewing all the data, and collaborating with patient's care team: 36 minutes Charges/Coding Visit Charges Inpatient E&M: 97086 Subs Hosp L2
[2022-09-21] MEDS: Ceftriaxone 1 GM/50 ML BAG IV (22:58)
[2022-09-21] MEDS: Acetaminophen 500 MG Tablet 1000 MG PO (22:59)
[2022-09-21] MEDS: Ensure Plus High Protein 120 ML LIQUID PO (22:59)
[2022-09-21] MEDS: Menthol/Lanolin/Calamine/Znox 113 GM Tube 1 APPLIC TOPICAL (23:00)
[2022-09-21] MEDS: APIXABAN 2.5 MG TABLET (WCH) PO (23:58)
[2022-09-22] VITALS (14 sets, daily range): BP systolic 92–111; BP diastolic 54–73; PULSE 56–88; RESP 16–18; TEMP 36.6–36.9; O2SAT 93–100
[2022-09-22 04:40] LABS: Hematocrit 35.6 % (37-47); Hemoglobin 11.3 g/dL (12.0-15.0); Mean Corp Hgb Conc 31.7 g/dL (32-36); Mean Corpuscular Hgb 32.4 pg (27.0-32.0); Mean Platelet Vol. 11.5 fl (6.2-12.0); Platelet Count 141 K/mm3 (150-450); RBC Distribution Width SD 52.3 fl (35.1-43.9); Red Blood Count 3.49 M/mm3 (4.2-5.4)
[2022-09-22] MEDS: Acetaminophen 500 MG Tablet 1000 MG PO ×3 (05:33→20:59)
[2022-09-22] MEDS: Menthol/Lanolin/Calamine/Znox 113 GM Tube 1 APPLIC TOPICAL ×2 (09:54→20:59)
--- NOTE | 2022-09-22 10:10 | PCM.PN.ORT ---
Subjective Subjective Patient is postoperative day 1 from right hip intramedullary fixation with short gamma nail. She denies resting pain. Patient has some dementia. She is awake and answering questions. Does follow commands. Objective Data Objective Data Vital Signs: Vital Signs Temp Pulse Resp BP Pulse Ox O2 Del Method O2 Flow Rate 98 F 80 18 92/59 L 93 Room Air 3 09/22/22 05:20 09/22/22 09:37 09/22/22 05:20 09/22/22 05:20 09/22/22 05:20 09/22/22 05:20 09/22/22 02:52 Oxygen Flow Rate (L/min) 3 Oxygen Delivery Method Room Air Weight: 47.854 kg Body Mass Index (BMI) 16.5 Intake & Output: Intake and Output for Last 24 Hours 09/20/22 09/21/22 09/22/22 23:59 23:59 23:59 Intake Total 2471.66 / 2621.66 1640.83 / 1640.83 1000 / 1000 Output Total 690 / 790 1510 / 1510 150 / 150 Balance 1781.66 / 1831.66 130.83 / 130.83 850 / 850 Medical Nutrition Assessment Dietitian: Malnutrition Criteria Met Start: 09/20/22 13:28 Freq: Status: Active Protocol: Document 09/20/22 13:28 (Rec: 09/20/22 13:28 [id number]) Nutrition Malnutrition Evidence of Malnutrition Exists Yes Malnutrition (severe): Chronic Evidenced By Suboptimal Energy Intake ( Severe),Physical Changes ( Severe) Clinical Problem Chronic Disease or Condition Related Malnutrition Etiology severe, chronic malnutrition related to inadequate energy intake Signs/Symptoms as evidenced by severe muscle wasting/fat loss evident per physical exam in orbital, clavicle, acromion, and temporal areas; estimated PO intake meeting <75% of estimated energy needs > 3 months; BMI 16.5 Status Active Problem Recommendation Dietitian Recommendations/Changes continue regular diet; ensure plus high protein 120mL 4x/day and magic cup w/ meals for additional calories/protein if consumed Lab / Micro Data Result Diagrams: 09/22/22 03:48 09/20/22 05:45 Labs: Laboratory Results - last 24 hr 09/22/22 03:48: WBC 9.0, RBC 3.49 L, Hgb 11.3 L, Hct 35.6 L, MCV 102.0 H, MCH 32.4 H, MCHC 31.7 L, RDW Std Deviation 52.3 H, RDW Coeff of Mike 14.0, Plt Count 141 L, MPV 11.5 Micro: Microbiology 09/19/22 20:37 Urine Catheter - Loving Urine Culture - Final Klebsiella pneumoniae sp pneum Radiography Diagnostic Testing: Radiology Impression Hip/Pelvis X-Ray 09/21/22 15:42 IMPRESSION: Nail fixation of a right intertrochanteric hip fracture. Electronically Signed: J Luis Haas MD at 18:43 EST , Rhythm Strip Rhythm Strip: Sinus Rhythm Physical Exam Narrative Right hip bandages on clean and dry. Clinically leg lengths equal and in good alignment. No obvious malrotation. No severe hip pain with gentle flexion and rotation. No severe hip pain with axial loading. Patient can plantarflex and dorsiflex toes and ankles nicely. SCDs are on. No significant swelling or bruising about the hip or thigh region. Legs are grossly neurovascular intact. Assessment & Plan Assessment/Plan (1) Intertrochanteric fracture of right femur: PLAN: Her diagnosis and treatment options regarding her right hip fracture surgery discussed with her at length. Patient will be 50% weightbearing on the right lower extremity. She can do full range of motion of the right hip. We will plan to keep her bandage on clean and dry for 7 days. Patient is on Eliquis currently for DVT prevention, as well as previous Eliquis use for atrial fibrillation. Loving catheter be discontinued today. Tylenol for pain if needed. Ice right hip as needed pain. Incentive spirometer use recommended. We will try to avoid narcotics if possible. Patient had preoperative dose of Ancef as well as ceftriaxone for possible UTI. Postoperatively after conversation with hospitalist it was decided to proceed with continued ceftriaxone use only Patient does have mild anticipated blood loss anemia not unusual for hip fracture surgery. Continue to monitor. On antibiotics for possible UTI From orthopedic standpoint patient can be discharged to [facility] when arrangements made. We will see her in the office in 2 weeks for evaluation, x-rays, staple removal. Orthopedic service will sign off. I can be notified if further orthopedic concerns occur.
[2022-09-22] MEDS: APIXABAN 2.5 MG TABLET (WCH) PO ×2 (10:29→20:05)
[2022-09-22] MEDS: Ensure Plus High Protein 120 ML LIQUID PO ×3 (13:58→21:00)
--- NOTE | 2022-09-22 14:10 | PN.HOSP_ITS ---
Reason for Visit Reason for Visit: Diagnoses Essential (primary) hypertension (09/19/22) Paroxysmal atrial fibrillation (09/19/22) Disorientation, unspecified (09/19/22) Fracture of unspecified part of neck of right femur, initial encounter for closed fracture (09/19/22) Displaced intertrochanteric fracture of right femur, initial encounter for closed fracture (09/19/22) Encounter for preprocedural cardiovascular examination (09/19/22) Subjective Subjective Was seen and examined today, she is alert, she does not express any complaints, she is not complaining of any discomfort from her hip surgery. Objective Data Objective Data Vital Signs: Vital Signs Temp Pulse Resp BP Pulse Ox O2 Del Method O2 Flow Rate 98.5 F 85 16 98/62 96 Room Air 3 09/22/22 13:52 09/22/22 13:52 09/22/22 13:52 09/22/22 13:52 09/22/22 13:52 09/22/22 13:52 09/22/22 02:52 Oxygen Flow Rate (L/min) 3 Oxygen Delivery Method Room Air Weight: 47.854 kg Body Mass Index (BMI) 16.5 Intake & Output: Intake and Output for Last 24 Hours 09/20/22 09/21/22 09/22/22 23:59 23:59 23:59 Intake Total 2471.66 / 2621.66 1640.83 / 1640.83 1000 / 1000 Output Total 690 / 790 1510 / 1510 200 / 200 Balance 1781.66 / 1831.66 130.83 / 130.83 800 / 800 Medical Nutrition Assessment Dietitian: Malnutrition Criteria Met Start: 09/20/22 13:28 Freq: Status: Active Protocol: Document 09/20/22 13:28 (Rec: 09/20/22 13:28 [id number]) Nutrition Malnutrition Evidence of Malnutrition Exists Yes Malnutrition (severe): Chronic Evidenced By Suboptimal Energy Intake ( Severe),Physical Changes ( Severe) Clinical Problem Chronic Disease or Condition Related Malnutrition Etiology severe, chronic malnutrition related to inadequate energy intake Signs/Symptoms as evidenced by severe muscle wasting/fat loss evident per physical exam in orbital, clavicle, acromion, and temporal areas; estimated PO intake meeting <75% of estimated energy needs > 3 months; BMI 16.5 Status Active Problem Recommendation Dietitian Recommendations/Changes continue regular diet; ensure plus high protein 120mL 4x/day and magic cup w/ meals for additional calories/protein if consumed Lab / Micro Data Result Diagrams: 09/22/22 03:48 09/20/22 05:45 Labs: Laboratory Results - last 24 hr 09/22/22 03:48: WBC 9.0, RBC 3.49 L, Hgb 11.3 L, Hct 35.6 L, MCV 102.0 H, MCH 32.4 H, MCHC 31.7 L, RDW Std Deviation 52.3 H, RDW Coeff of Mike 14.0, Plt Count 141 L, MPV 11.5 Micro: Microbiology 09/19/22 20:37 Urine Catheter - Loving Urine Culture - Final Klebsiella pneumoniae sp pneum Radiography Diagnostic Testing: Radiology Impression Hip/Pelvis X-Ray 09/21/22 15:42 IMPRESSION: Nail fixation of a right intertrochanteric hip fracture. Electronically Signed: J Luis Haas MD at 18:43 EST , Rhythm Strip Rhythm Strip: Sinus Rhythm Physical Exam Const alert, oriented x3 and no apparent distress Constitutional Narrative: Patient is cachectic appearing General Appearance: cooperative, well kempt and well developed Orientation / Consciousness: awake, oriented to person, oriented to place and oriented to time HEENT normocephalic, head/scalp atraumatic and moist oral mucous membranes Eyes PERRL, EOMs intact bilaterally and conjunctivae normal Neck supple, no JVD, thyroid normal and no carotid bruits General: trachea midline Resp normal respiratory effort, no retractions, no use of accessory muscles and clear to auscultation bilaterally Auscultation: Negative for rales, rhonchi or wheezes Cardio regular rate, regular rhythm, S1 normal heart sound, S2 normal heart sound, no murmurs, no rub and no gallops GI normal to inspection, nondistended, normoactive bowel sounds, soft to palpation, non-tender and non-distended Skin no rashes or lesions noted Neuro oriented x3, CN's II-XII intact bilaterally, moves all extremities, no focal motor deficits and no sensory deficits noted Sensorium / Orientation: awake, alert, oriented to person and oriented to place Speech: speech normal Psych Psych Narrative: Patient responds appropriate to simple questions Assessment & Plan Assessment/Plan (1) Hip fracture, right: (2) Intertrochanteric fracture of right femur: PLAN: Plan 1. Closed intertrochanteric fracture of the right hip-postop day 1 intramedullary nail fixation-PT and OT will see patient, she may be a candidate to go to either the rehab unit at [facility] or a intermediate facility for short-term rehab services. #2 paroxysmal atrial fibrillation-patient's Eliquis will be restarted after surgery #3 essential hypertension-patient is on metoprolol #4 dementia-complicates care, medical course, recovery, and prognosis #5 severe chronic caloric and protein malnutrition-related to inadequate energy intake as evidenced by severe muscle wasting/fat loss evident per physical exam and orbital, clavicular, acromion, and temporal areas-estimated p.o. intake meeting less than 75% of estimated energy needs over 3 months, continue regular diet, Ensure Plus high-protein 120 mL 4 times a day and Magic cup with meals for additional calories/protein if consumed Total clinical time spent by myself evaluating the patient's medical problems, reviewing all the data, and collaborating with patient's care team: 37 minutes Charges/Coding Visit Charges Inpatient E&M: 57127 Subs Hosp L2
--- NOTE | 2022-09-22 17:05 | NURSING ---
O2 dropped to 76% o2 applied at 4 l nc, and it increased to 99%. will continue this rate at this time.
[2022-09-22] MEDS: Metoprolol Tartrate 50 MG Tablet PO (20:04)
[2022-09-22] MEDS: MELATONIN 3 MG TABLET PO (20:58)
[2022-09-22] MEDS: oxyCODONE 5 MG Tablet PO (20:58)
[2022-09-22] MEDS: Ceftriaxone 1 GM/50 ML BAG IV (21:03)
[2022-09-22] MEDS: 0.9% Saline Lock 10 ML Syringe IV (21:03)
[2022-09-23] VITALS (7 sets, daily range): BP systolic 111–135; BP diastolic 60–95; PULSE 70–98; RESP 16–18; TEMP 36.6–37.1; O2SAT 93–98
[2022-09-23] MEDS: oxyCODONE 5 MG Tablet PO ×3 (02:44→20:36)
[2022-09-23] MEDS: Acetaminophen 500 MG Tablet 1000 MG PO ×2 (05:38→20:36)
[2022-09-23] MEDS: Ensure Plus High Protein 120 ML LIQUID PO ×4 (08:44→20:37)
[2022-09-23] MEDS: Metoprolol Tartrate 50 MG Tablet PO ×2 (08:45→20:41)
[2022-09-23] MEDS: APIXABAN 2.5 MG TABLET (WCH) PO ×2 (08:46→20:36)
[2022-09-23] MEDS: Menthol/Lanolin/Calamine/Znox 113 GM Tube 1 APPLIC TOPICAL ×2 (08:48→20:37)
--- NOTE | 2022-09-23 17:35 | PN.HOSP_ITS ---
Reason for Visit Reason for Visit: Diagnoses Essential (primary) hypertension (09/19/22) Paroxysmal atrial fibrillation (09/19/22) Disorientation, unspecified (09/19/22) Fracture of unspecified part of neck of right femur, initial encounter for closed fracture (09/19/22) Displaced intertrochanteric fracture of right femur, initial encounter for closed fracture (09/19/22) Encounter for preprocedural cardiovascular examination (09/19/22) Subjective Subjective Patient was seen and examined today, she does not appear to be agitated, she still exhibits confusion, she does not appear to be in any pain. She is talking with her on the telephone Objective Data Objective Data Vital Signs: Vital Signs Temp Pulse Resp BP Pulse Ox O2 Del Method O2 Flow Rate 98.8 F 98 18 134/60 H 98 Nasal Cannula 4 09/23/22 15:30 09/23/22 15:30 09/23/22 15:30 09/23/22 15:30 09/23/22 15:30 09/23/22 15:30 09/23/22 15:30 FiO2 99 09/23/22 15:00 Oxygen Flow Rate (L/min) 4 Oxygen Delivery Method Nasal Cannula Weight: 47.854 kg Body Mass Index (BMI) 16.5 Intake & Output: Intake and Output for Last 24 Hours 09/21/22 09/22/22 09/23/22 23:59 23:59 23:59 Intake Total 1640.83 / 1640.83 1050 / 1350 600 / 600 Output Total 1510 / 1510 200 / 500 850 / 850 Balance 130.83 / 130.83 850 / 850 -250 / -250 Medical Nutrition Assessment Dietitian: Malnutrition Criteria Met Start: 09/20/22 13:28 Freq: Status: Active Protocol: Document 09/20/22 13:28 AG (Rec: 09/20/22 13:28 [id number]) Nutrition Malnutrition Evidence of Malnutrition Exists Yes Malnutrition (severe): Chronic Evidenced By Suboptimal Energy Intake ( Severe),Physical Changes ( Severe) Clinical Problem Chronic Disease or Condition Related Malnutrition Etiology severe, chronic malnutrition related to inadequate energy intake Signs/Symptoms as evidenced by severe muscle wasting/fat loss evident per physical exam in orbital, clavicle, acromion, and temporal areas; estimated PO intake meeting <75% of estimated energy needs > 3 months; BMI 16.5 Status Active Problem Recommendation Dietitian Recommendations/Changes continue regular diet; ensure plus high protein 120mL 4x/day and magic cup w/ meals for additional calories/protein if consumed Lab / Micro Data Result Diagrams: 09/22/22 03:48 09/20/22 05:45 Micro: Microbiology 09/19/22 20:37 Urine Catheter - Loving Urine Culture - Final Klebsiella pneumoniae sp pneum Rhythm Strip Rhythm Strip: Sinus Rhythm Physical Exam Narrative alert, oriented x3 and no apparent distress Constitutional Narrative: Patient is cachectic appearing General Appearance: cooperative, well kempt and well developed Orientation / Consciousness: awake, oriented to person, oriented to place and oriented to time HEENT normocephalic, head/scalp atraumatic and moist oral mucous membranes Eyes PERRL, EOMs intact bilaterally and conjunctivae normal Neck supple, no JVD, thyroid normal and no carotid bruits General: trachea midline Resp normal respiratory effort, no retractions, no use of accessory muscles and clear to auscultation bilaterally Auscultation: Negative for rales, rhonchi or wheezes Cardio regular rate, regular rhythm, S1 normal heart sound, S2 normal heart sound, no murmurs, no rub and no gallops GI normal to inspection, nondistended, normoactive bowel sounds, soft to palpation, non-tender and non-distended Skin no rashes or lesions noted Neuro oriented x3, CN's II-XII intact bilaterally, moves all extremities, no focal motor deficits and no sensory deficits noted Sensorium / Orientation: awake, alert, oriented to person and oriented to place Speech: speech normal Psych Psych Narrative: Patient responds appropriate to simple questions Assessment & Plan Assessment/Plan (1) Intertrochanteric fracture of right femur: (2) Hip fracture, right: PLAN: Plan 1. Closed intertrochanteric fracture of the right hip-postop day 2 intramedullary nail fixation-PT and OT will see patient, she may be a candidate to go to either the rehab unit at [facility] or a [facility] facility for short-term rehab services. #2 paroxysmal atrial fibrillation-patient's Eliquis will be restarted after surgery #3 essential hypertension-patient is on metoprolol #4 dementia-complicates care, medical course, recovery, and prognosis #5 severe chronic caloric and protein malnutrition-related to inadequate energy intake as evidenced by severe muscle wasting/fat loss evident per physical exam and orbital, clavicular, acromion, and temporal areas-estimated p.o. intake meeting less than 75% of estimated energy needs over 3 months, continue regular diet, Ensure Plus high-protein 120 mL 4 times a day and Magic cup with meals for additional calories/protein if consumed Total clinical time spent by myself evaluating the patient's medical problems, reviewing all the data, and collaborating with patient's care team: 36 minutes Charges/Coding Visit Charges Inpatient E&M: 28970 Subs Hosp L2
--- NOTE | 2022-09-23 17:48 | NURSING ---
Pt became agitated this afternoon and refused all care not letting nurse or framing and hanging touch her. refused meds. she slept for approx. 3 hours upon wakening at 1730 pt was cooperative with care and meds. alert and oriented x 2.
[2022-09-23] MEDS: MELATONIN 3 MG TABLET PO (20:36)
[2022-09-23] MEDS: 0.9% Saline Lock 10 ML Syringe IV (20:41)
[2022-09-23] MEDS: Ceftriaxone 1 GM/50 ML BAG IV (20:42)
--- NOTE | 2022-09-23 20:53 | NURSING ---
hs meds given at this time d/t pt asking to just be able to sleep
[2022-09-24] VITALS (8 sets, daily range): BP systolic 94–132; BP diastolic 48–74; PULSE 86–104; RESP 18; TEMP 36.6–36.8; O2SAT 95–97
[2022-09-24] MEDS: Acetaminophen 500 MG Tablet 1000 MG PO ×3 (05:56→22:13)
[2022-09-24] MEDS: Ensure Plus High Protein 120 ML LIQUID PO ×4 (08:01→22:14)
[2022-09-24] MEDS: APIXABAN 2.5 MG TABLET (WCH) PO ×2 (08:01→22:13)
[2022-09-24] MEDS: Menthol/Lanolin/Calamine/Znox 113 GM Tube 1 APPLIC TOPICAL ×2 (08:02→22:12)
--- NOTE | 2022-09-24 08:25 | PN.HOSP_ITS ---
Reason for Visit Reason for Visit: Diagnoses Essential (primary) hypertension (09/19/22) Paroxysmal atrial fibrillation (09/19/22) Disorientation, unspecified (09/19/22) Fracture of unspecified part of neck of right femur, initial encounter for closed fracture (09/19/22) Displaced intertrochanteric fracture of right femur, initial encounter for closed fracture (09/19/22) Encounter for preprocedural cardiovascular examination (09/19/22) Subjective Subjective Asking why she has food when she is going to be having surgery today.Patient had surgery on the and there is no plan for any additional surgeries at this time. Objective Data Objective Data Vital Signs: Vital Signs Temp Pulse Resp BP Pulse Ox O2 Del Method O2 Flow Rate 36.8 C 104 H 18 99/74 97 Room Air 4 09/24/22 06:03 09/24/22 07:58 09/24/22 06:03 09/24/22 07:58 09/24/22 07:00 09/24/22 07:00 09/23/22 15:30 FiO2 99 09/23/22 15:00 Oxygen Flow Rate (L/min) 4 Oxygen Delivery Method Room Air Weight: 47.854 kg Body Mass Index (BMI) 16.5 Intake & Output: Intake and Output for Last 24 Hours 09/22/22 09/23/22 09/24/22 23:59 23:59 23:59 Intake Total 1050 / 1350 950 / 950 300 / 300 Output Total 200 / 500 1150 / 1150 Balance 850 / 850 -200 / -200 300 / 300 Medical Nutrition Assessment Dietitian: Malnutrition Criteria Met Start: 09/20/22 13:28 Freq: Status: Active Protocol: Document 09/20/22 13:28 (Rec: 09/20/22 13:28 [id number]) Nutrition Malnutrition Evidence of Malnutrition Exists Yes Malnutrition (severe): Chronic Evidenced By Suboptimal Energy Intake ( Severe),Physical Changes ( Severe) Clinical Problem Chronic Disease or Condition Related Malnutrition Etiology severe, chronic malnutrition related to inadequate energy intake Signs/Symptoms as evidenced by severe muscle wasting/fat loss evident per physical exam in orbital, clavicle, acromion, and temporal areas; estimated PO intake meeting <75% of estimated energy needs > 3 months; BMI 16.5 Status Active Problem Recommendation Dietitian Recommendations/Changes continue regular diet; ensure plus high protein 120mL 4x/day and magic cup w/ meals for additional calories/protein if consumed Lab / Micro Data Result Diagrams: 09/22/22 03:48 09/20/22 05:45 Micro: Microbiology 09/19/22 20:37 Urine Catheter - Loving Urine Culture - Final Klebsiella pneumoniae sp pneum Rhythm Strip Rhythm Strip: Sinus Rhythm Physical Exam Const alert and no apparent distress Constitutional Narrative: Up in chair. No acute distress. Anxious but was able to be talked down. Resp normal respiratory effort, no retractions, no use of accessory muscles and clear to auscultation bilaterally Cardio regular rate, regular rhythm, S1 normal heart sound and S2 normal heart sound GI normal to inspection, nondistended, normoactive bowel sounds, soft to palpation, non-tender and non-distended Extremity normal to inspection Extremity Narrative: Incision on the right hip is bandaged and clean no bleedthrough noted. Assessment & Plan Assessment/Plan (1) Intertrochanteric fracture of right femur: PLAN: s/p ORIF with IM nail on 09/[address] Bermudez per ortho: 50% weight bearing RLE with full range of motion of right hip. follow up with ortho in 2 weeks check 25-oh d level PLAN: Plan chronic conditions: * paroxysmal atrial fibrillation-patient's Eliquis will be restarted after surgery * essential hypertension-patient is on metoprolol * dementia-complicates care, medical course, recovery, and prognosis * severe chronic caloric and protein malnutrition-related to inadequate energy intake as evidenced by severe muscle wasting/fat loss evident per physical exam and orbital, clavicular, acromion, and temporal areas-estimated p.o. intake meeting less than 75% of estimated energy needs over 3 months, continue regular diet, Ensure Plus high-protein 120 mL 4 times a day and Magic cup with meals for additional calories/protein if consumed VTE prophylaxis: not indicated as on apixaban Disposition: To be determined. Waiting on insurance preauthorization. Charges/Coding Visit Charges Inpatient E&M: 05652 Subs Hosp L2
[2022-09-24 09:13] LABS: Vitamin D,25 Hydroxy 28.6 ng/mL
--- NOTE | 2022-09-24 09:28 | CASEMGMT ---
Social Work Isabella at [facility] reached out to inquire about when to start precert. JOSE informed Isabella that precert can be started this morning. VIJI Valero
--- NOTE | 2022-09-24 11:37 | CASEMGMT ---
Social work Utilization Manager informed SW that pt son had called and would like to speak. SW called son back and son asked questions regarding length of stay at TCU and when pt can transfer there. SW answered questions, informed son of insurance making most determinations. Son voiced understanding. Son also asked about dementia testing. SW informed son most testing for this would be through pt's PCP. Son voiced understanding and agreed that is best options as PCP knows pt well. PLAN: TCU, pending precert VIJI Valero
[2022-09-24] MEDS: 0.9% Saline Lock 10 ML Syringe IV (22:06)
[2022-09-24] MEDS: Ceftriaxone 1 GM/50 ML BAG IV (22:10)
[2022-09-24] MEDS: Metoprolol Tartrate 50 MG Tablet PO (22:12)
[2022-09-24] MEDS: MELATONIN 3 MG TABLET PO (22:16)
[2022-09-25 02:10] VITALS: BP 122/65; PULSE 88; RESP 18; TEMP 36.6; O2SAT 95
[2022-09-25] MEDS: Acetaminophen 500 MG Tablet 1000 MG PO ×2 (06:19→13:38)
--- NOTE | 2022-09-25 07:40 | PN.HOSP_ITS ---
Reason for Visit Reason for Visit: Diagnoses Essential (primary) hypertension (09/19/22) Paroxysmal atrial fibrillation (09/19/22) Disorientation, unspecified (09/19/22) Fracture of unspecified part of neck of right femur, initial encounter for closed fracture (09/19/22) Displaced intertrochanteric fracture of right femur, initial encounter for closed fracture (09/19/22) Encounter for preprocedural cardiovascular examination (09/19/22) Subjective Subjective No new complaints. Objective Data Objective Data Vital Signs: Vital Signs Temp Pulse Resp BP Pulse Ox O2 Del Method O2 Flow Rate 36.6 C 88 18 122/65 H 95 Room Air 4 09/25/22 02:10 09/25/22 02:10 09/25/22 02:10 09/25/22 02:10 09/25/22 02:10 09/25/22 02:10 09/23/22 15:30 FiO2 99 09/23/22 15:00 Oxygen Flow Rate (L/min) 4 Oxygen Delivery Method Room Air Weight: 47.854 kg Body Mass Index (BMI) 16.5 Intake & Output: Intake and Output for Last 24 Hours 09/23/22 09/24/22 09/25/22 23:59 23:59 23:59 Intake Total 950 / 950 350.25 / 350.25 300 / 300 Output Total 1150 / 1150 Balance -200 / -200 350.25 / 350.25 300 / 300 Medical Nutrition Assessment Dietitian: Malnutrition Criteria Met Start: 09/20/22 13:28 Freq: Status: Active Protocol: Document 09/24/22 12:46 ANA CRISTINA (Rec: 09/24/22 12:46 ANA CRISTINA [id number]) Nutrition Malnutrition Evidence of Malnutrition Exists Yes Malnutrition (severe): Chronic Evidenced By Suboptimal Energy Intake ( Severe),Physical Changes ( Severe) Clinical Problem Chronic Disease or Condition Related Malnutrition Etiology severe, chronic malnutrition related to inadequate energy intake Signs/Symptoms as evidenced by severe muscle wasting/fat loss evident per physical exam in orbital, clavicle, acromion, and temporal areas; estimated PO intake meeting <75% of estimated energy needs > 3 months; BMI 16.5 Status Active Problem Recommendation Dietitian Recommendations/Changes continue regular diet; ensure plus high protein 120mL 4x/day and magic cup w/ meals for additional calories/protein if consumed Lab / Micro Data Result Diagrams: 09/22/22 03:48 09/20/22 05:45 Labs: Laboratory Results - last 24 hr 09/22/22 03:48: Vitamin D 25-Hydroxy 28.6 Micro: Microbiology 09/19/22 20:37 Urine Catheter - Loving Urine Culture - Final Klebsiella pneumoniae sp pneum Rhythm Strip Rhythm Strip: Sinus Rhythm Physical Exam Const alert and no apparent distress Cardio regular rate, regular rhythm, S1 normal heart sound and S2 normal heart sound GI normal to inspection, nondistended, normoactive bowel sounds, soft to palpation, non-tender and non-distended Neuro oriented x3 and CN's II-XII intact bilaterally Assessment & Plan Assessment/Plan (1) Intertrochanteric fracture of right femur: PLAN: s/p ORIF with IM nail on 09/[address] Bermudez per ortho: 50% weight bearing RLE with full range of motion of right hip. follow up with ortho in 2 weeks (2) Vitamin D deficiency: PLAN: 25-hydroxy vitamin D level 28.6. Start ergocalciferol. PLAN: Plan chronic conditions: * paroxysmal atrial fibrillation-patient's Eliquis will be restarted after surgery * essential hypertension-patient is on metoprolol * dementia-complicates care, medical course, recovery, and prognosis * severe chronic caloric and protein malnutrition-related to inadequate energy intake as evidenced by severe muscle wasting/fat loss evident per physical exam and orbital, clavicular, acromion, and temporal areas-estimated p.o. intake meeting less than 75% of estimated energy needs over 3 months, continue regular diet, Ensure Plus high-protein 120 mL 4 times a day and Magic cup with meals for additional calories/protein if consumed VTE prophylaxis: not indicated as on apixaban Disposition: To residential facility.
[2022-09-25 08:08] VITALS: BP 113/83; PULSE 98; RESP 16; TEMP 36.6; O2SAT 97
[2022-09-25 08:18] VITALS: O2SAT 94
[2022-09-25] MEDS: Menthol/Lanolin/Calamine/Znox 113 GM Tube 1 APPLIC TOPICAL (09:52)
[2022-09-25 09:53] VITALS: PULSE 98
[2022-09-25] MEDS: APIXABAN 2.5 MG TABLET (WCH) PO (09:53)
[2022-09-25] MEDS: Metoprolol Tartrate 50 MG Tablet PO (09:53)
[2022-09-25] MEDS: Ensure Plus High Protein 120 ML LIQUID PO ×2 (09:58→13:38)
[2022-09-25] MEDS: Ergocalciferol 1.25 MG (50, 000 UNIT) Capsule PO (10:54)
--- NOTE | 2022-09-25 12:11 | CASEMGMT ---
Social work Precert has been obtained. SW updated MD Gramajo. Marj Woods, [employer]
--- NOTE | 2022-09-25 12:28 | TREXTCAR_ITS ---
Diet Diet Order/Speech Therapy: 09/21/22 22:47 Diet: Regular - General Type of Dietary Supplement:: Magic Cup Dessert Is pt able to select menu?: No Routine Orders/Code Status Code Status: DNRCC-A (no intubation) Wound(s) RT HIP: Wound Type: Abrasion RIGHT HIP: Wound Type: Surgical Incision Therapies Physical Therapy: Eval and Treat Occupational Therapy: Eval and Treat Problem/Diagnosis (1) Intertrochanteric fracture of right femur: Status: Acute Code(s): S72.141A - Displaced intertrochanteric fracture of right femur, initial encounter for closed fracture Plan: s/p ORIF with IM nail on 09/[address] Bermudez per ortho: 50% weight bearing RLE with full range of motion of right hip. follow up with ortho in 2 weeks (2) Vitamin D deficiency: Status: Acute Code(s): E55.9 - Vitamin D deficiency, unspecified Plan: 25-hydroxy vitamin D level 28.6. Start ergocalciferol. Plan chronic conditions: * paroxysmal atrial fibrillation-patient's Eliquis will be restarted after surgery * essential hypertension-patient is on metoprolol * dementia-complicates care, medical course, recovery, and prognosis * severe chronic caloric and protein malnutrition-related to inadequate energy intake as evidenced by severe muscle wasting/fat loss evident per physical exam and orbital, clavicular, acromion, and temporal areas-estimated p.o. intake meeting less than 75% of estimated energy needs over 3 months, continue regular diet, Ensure Plus high-protein 120 mL 4 times a day and Magic cup with meals for additional calories/protein if consumed VTE prophylaxis: not indicated as on apixaban Disposition: To [facility] facility. Allergies/Procedures Done in Hospital Allergies Iodine and Iodide Containing Produc Allergy (Severe, Verified 09/19/22 19:05) rash codeine Adverse Reaction (Unknown, Verified 09/19/22 19:05) Unknown Procedures: - (R hip open reduction internal fixation, intramedullary nail fixation, locked) Type of Care/Length of Stay Estimated LOS: Convalescent Care Less Than 30 days Type of Care Needed: Skilled Rehab Potential: Fair Prognosis: Fair Additional Orders/Day of Discharge Day of Discharge: 09/25/22 Dietary and Speech Recommendations Dietitian Recommendations/Changes: continue regular diet; ensure plus high protein 120mL 4x/day and magic cup w/ meals for additional calories/protein if consumed Discharge Plan Admission Admit Date/Time: 09/19/22 22:30 Primary Reason for Your Visit: right hip fracture Attending Provider: Jadon Gramajo Primary Care Provider: Bárbara Temple Consulting Providers: Filomena Jamil ; Jamil Love ; J Luis Chan ; Venkata Man ; Sam Anderson Discharge Orders/Prescriptions Prescriptions: New acetaminophen 500 mg Tablet 1,000 mg PO Q8 Qty: 0 0RF ergocalciferol (vitamin D2) [Vitamin D2] 1,250 mcg (50,000 unit) Capsule 1,250 mcg PO Q7D Qty: 0 0RF Ensure Plus High Protein 0.08 gram-1.5 kcal/mL Liquid 120 ml PO 4X/DAY Qty: 0 0RF melatonin 3 mg Tablet 3 mg PO QHS PRN PRN (Reason: Insomnia) Qty: 0 0RF menthol-zinc oxide [Calmoseptine] 0.44-20.6 % Ointment 1 applic topical BID Qty: 0 0RF Protocol: *Topical Application Instructions APPLICATION INSTRUCTIONS: coccyx sulfamethoxazole-trimethoprim [Bactrim DS] 800-160 mg tablet 1 tab PO BID Qty: 6 0RF Continued apixaban 2.5 MG tablet 2.5 mg PO BID metoprolol tartrate 100 mg tablet 100 mg PO BID Referrals / Follow Up: Bárbara Temple MD [Primary Care Provider] - Within 2 Weeks Real Bermudez MD [Med Staff - Active Staff] - Within 2 Weeks Disposition Disposition (needs filled in before D/C Order can be placed): [facility]
--- NOTE | 2022-09-25 12:34 | DS.PCM_ITS ---
Providers Date of Admission: 09/19/22 Primary Care Physician: Dr. Bárbara Temple MD Consultations 09/19/22 23:10 Consult: Orthopedics Routine Consulting Provider: J Luis Chan Reason for Consult: R intertrochanteric fx EMERGENT Consult: No MD Notified: Yes Date Notified: 09/19/22 Time Notified: 23:10 Method of Notification: ED Physician Initiated 09/20/22 08:33 Consult: Cardiology Routine Consulting Provider: Sam Anderson Reason for Consult: afib and surgery clearance EMERGENT Consult: No MD Notified: Yes Date Notified: 09/20/22 Time Notified: 08:33 Method of Notification: Verbal Method of Consult:: In-Person Reason For Visit: INTERTROCH FX Diagnosis Discharge Diagnosis (1) Intertrochanteric fracture of right femur: Status: Acute Code(s): S72.141A - Displaced intertrochanteric fracture of right femur, initial encounter for closed fracture Plan: s/p ORIF with IM nail on 09/[address] Bermudez per ortho: 50% weight bearing RLE with full range of motion of right hip. follow up with ortho in 2 weeks (2) Vitamin D deficiency: Status: Acute Code(s): E55.9 - Vitamin D deficiency, unspecified Plan: 25-hydroxy vitamin D level 28.6. Start ergocalciferol. Plan chronic conditions: * paroxysmal atrial fibrillation-patient's Eliquis will be restarted after surgery * essential hypertension-patient is on metoprolol * dementia-complicates care, medical course, recovery, and prognosis * severe chronic caloric and protein malnutrition-related to inadequate energy intake as evidenced by severe muscle wasting/fat loss evident per physical exam and orbital, clavicular, acromion, and temporal areas-estimated p.o. intake meeting less than 75% of estimated energy needs over 3 months, continue regular diet, Ensure Plus high-protein 120 mL 4 times a day and Magic cup with meals for additional calories/protein if consumed VTE prophylaxis: not indicated as on apixaban Disposition: To long term facility. Medications at Discharge Home Medications apixaban 2.5 mg tablet 2.5 mg PO BID BLOOD 10/07/21 metoprolol tartrate 100 mg tablet 100 mg PO BID BLOOD PRESSURE 09/19/22 acetaminophen 500 mg tablet 1,000 mg PO Q8 #0 tabs 09/25/22 ergocalciferol (vitamin D2) 1,250 mcg (50,000 unit) capsule (Vitamin D2) 1,250 mcg PO Q7D #0 caps 09/25/22 food supplemt, lactose-reduced 0.08 gram-1.5 kcal/mL oral liquid (Ensure Plus High Protein) 120 ml PO 4X/DAY #0 mL 09/25/22 melatonin 3 mg tablet 3 mg PO QHS PRN PRN Insomnia #0 tabs 09/25/22 menthol 0.44 %-zinc oxide 20.6 % topical ointment (Calmoseptine) 1 applic topical BID #0 grams 09/25/22 sulfamethoxazole 800 mg-trimethoprim 160 mg tablet (Bactrim DS) 1 tab PO BID #6 tabs 09/25/22 Hospital Course Operations - (R hip open reduction internal fixation, intramedullary nail fixation, locked) Procedures None Medical Records Data Medical Nutrition Assessment Dietitian: Malnutrition Criteria Met Start: 09/20/22 13:28 Freq: Status: Active Protocol: Document 09/24/22 12:46 ANA CRISTINA (Rec: 09/24/22 12:46 ANA CRISTINA [id number]) Nutrition Malnutrition Evidence of Malnutrition Exists Yes Malnutrition (severe): Chronic Evidenced By Suboptimal Energy Intake ( Severe),Physical Changes ( Severe) Clinical Problem Chronic Disease or Condition Related Malnutrition Etiology severe, chronic malnutrition related to inadequate energy intake Signs/Symptoms as evidenced by severe muscle wasting/fat loss evident per physical exam in orbital, clavicle, acromion, and temporal areas; estimated PO intake meeting <75% of estimated energy needs > 3 months; BMI 16.5 Status Active Problem Recommendation Dietitian Recommendations/Changes continue regular diet; ensure plus high protein 120mL 4x/day and magic cup w/ meals for additional calories/protein if consumed Weight / BMI Weight Weight: 47.854 kg Body Mass Index (BMI) 16.5 ABG / Lab / Microbiology Data Result Diagrams: 09/22/22 03:48 09/20/22 05:45 Microbiology: Microbiology 09/19/22 20:37 Urine Catheter - Loving Urine Culture - Final Klebsiella pneumoniae sp pneum D/C Instructions Discharge Diet: No restrictions Meaningful Use Info Meaningful Use Diagnoses (Choose all that apply): None applicable Discharge Plan Admission Admit Date/Time: 02/15/23 22:30 Primary Reason for Your Visit: right hip fracture Attending Provider: Jadon Gramajo Primary Care Provider: Bárbara Temple Consulting Providers: Filomena Jamil ; Jamil Love ; J Luis Chan ; Venkata Man ; Sam Anderson Discharge Orders/Prescriptions Prescriptions: New acetaminophen 500 mg Tablet 1,000 mg PO Q8 Qty: 0 0RF ergocalciferol (vitamin D2) [Vitamin D2] 1,250 mcg (50,000 unit) Capsule 1,250 mcg PO Q7D Qty: 0 0RF Ensure Plus High Protein 0.08 gram-1.5 kcal/mL Liquid 120 ml PO 4X/DAY Qty: 0 0RF melatonin 3 mg Tablet 3 mg PO QHS PRN PRN (Reason: Insomnia) Qty: 0 0RF menthol-zinc oxide [Calmoseptine] 0.44-20.6 % Ointment 1 applic topical BID Qty: 0 0RF Protocol: *Topical Application Instructions APPLICATION INSTRUCTIONS: coccyx sulfamethoxazole-trimethoprim [Bactrim DS] 800-160 mg tablet 1 tab PO BID Qty: 6 0RF Continued apixaban 2.5 MG tablet 2.5 mg PO BID metoprolol tartrate 100 mg tablet 100 mg PO BID Referrals / Follow Up: Bárbara Temple MD [Primary Care Provider] - Within 2 Weeks Real Bermudez MD [Med Staff - Active Staff] - Within 2 Weeks Disposition Disposition (needs filled in before D/C Order can be placed): Assisted Facility Charges/Coding Visit Charges Inpatient E&M: 18607 Disch Hosp
--- NOTE | 2022-09-25 13:23 | CASEMGMT ---
Social Work? SW notified pt of discharge to TCU today. Pt declined SW calling family to update on d/c plan and stated family on the way into [facility] to visit and pt would inform them of plan when they arrive. SW faxed all discharge orders. SW made copies of discharge orders and placed on pt chart. Sent original orders in envelope with pt upon discharge.?? Disposition: TCU, skilled, convalescent, level of care? VIJI Valero
[2022-09-25 13:33] VITALS: BP 115/81; PULSE 83; RESP 16; TEMP 36.6; O2SAT 99
--- NOTE | 2022-09-25 14:53 | PHA.DC.MR ---
Pharmacy Service has performed discharge medication reconciliation for this patient. The patient's discharge medication list was reviewed for discrepancies and discrepancies were resolved. Home Medications apixaban 2.5 mg tablet 2.5 mg PO BID BLOOD 10/07/21 metoprolol tartrate 100 mg tablet 100 mg PO BID BLOOD PRESSURE 09/19/22 acetaminophen 500 mg tablet 1,000 mg PO Q8 #0 tabs 09/25/22 ergocalciferol (vitamin D2) 1,250 mcg (50,000 unit) capsule (Vitamin D2) 1,250 mcg PO Q7D #0 caps 09/25/22 food supplemt, lactose-reduced 0.08 gram-1.5 kcal/mL oral liquid (Ensure Plus High Protein) 120 ml PO 4X/DAY #0 mL 09/25/22 melatonin 3 mg tablet 3 mg PO QHS PRN PRN Insomnia #0 tabs 09/25/22 menthol 0.44 %-zinc oxide 20.6 % topical ointment (Calmoseptine) 1 applic topical BID #0 grams 09/25/22 sulfamethoxazole 800 mg-trimethoprim 160 mg tablet (Bactrim DS) 1 tab PO BID #6 tabs 09/25/22
== END 2022-09-25 14:56 | disposition skilled nursing facility (03) | DRG 480 ==
LOC: ED 22:05 → MS3 22:16
PROVIDERS: Orthopaedic Surgery; Admitting Provider Internal Medicine; Emergency Provider Emergency Medicine; PCP Internal Medicine
PROC: 0QS606Z Reposition Right Upper Femur with Intramedullary Internal Fixation Device, Open Approach (ICD-10-PCS; CPT 27245; principal; 2022-09-21 14:45)
DX: S72.141A Displaced intertrochanteric fracture of right femur, initial encounter for closed fracture (principal); E43 Unspecified severe protein-calorie malnutrition; Z68.1 Body mass index [BMI] 19.9 or less, adult; F03.90 Unspecified dementia, unspecified severity, without behavioral disturbance, psychotic disturbance, mood disturbance, and anxiety; I48.0 Paroxysmal atrial fibrillation; I10 Essential (primary) hypertension; E55.9 Vitamin D deficiency, unspecified; W01.0XXA Fall on same level from slipping, tripping and stumbling without subsequent striking against object, initial encounter; Z79.01 Long term (current) use of anticoagulants; Z79.899 Other long term (current) drug therapy; Z87.891 Personal history of nicotine dependence
CPT/HCPCS: 36415; 51702; 71045; 73501; 73502; 76000; 80048; 80053; 81001; 82306; 85025; 85027; 85610; 85730; 86850; 86900; 86901; 87077; 87086; 87088; 87186; 87426; 93005; 94668; 97110; 97162; 97166; 97530; 97535; 99285; C1776; J7030; J7050; J7120; A4216; J2405

== ENCOUNTER 2022-09-25 15:18 | Inpatient (IN) | payer MEDICARE, SELFPAY ==
[2022-09-25 15:39] VITALS: BP 112/68; PULSE 82; RESP 17; TEMP 36.2; O2SAT 97; BMI 19.1
[2022-09-25] MEDS: Smz/Tmp Ds Tablet 1 TABLET PO (18:12)
[2022-09-25] MEDS: Ensure Plus High Protein 120 ML LIQUID PO ×2 (18:12→20:14)
[2022-09-25] MEDS: APIXABAN 2.5 MG TABLET (WCH) PO (18:12)
[2022-09-25 18:14] VITALS: BP 128/77; PULSE 94
[2022-09-25] MEDS: Metoprolol Tartrate 100 MG Tablet PO (18:14)
--- NOTE | 2022-09-25 19:42 | HP.PCM_ITS ---
HPI - General General Date of Admission: 09/25/22 Date of Service: 09/25/22 Chief Complaint: Here for rehabilitation, strengthening. HPI Narrative 09/19/2022 LANNY MACEDO, is a 81 Female who presents to [facility] Emergency Department with fall. Fall, right hip pain, unable to walk after fall. Pain is sharp, worse with movement. X-ray shows right hip fracture. Morphine given, Zofran given. 09/19/2022 Admit to Hospital. Hold Eliquis, pain control, consult Ortho for right hip fracture. Gentle IV fluids for chronic kidney disease. 09/20/2022 Dr. Anderson recommended echo for preop. 09/20/2022 Echo not necessary, stress test unable due to underlying dementia. 09/21/2022 Dr. Bermudez performed right hip open reduction internal fixation, intramedullary nail fixation, locked. 09/21/2022 PT/OT for SNF. 09/22/2022 Alert, no complaints. 09/23/2022 Confused. Restart Eliquis. 09/24/2022 Confused. 09/25/2022 Admit to TCU with debility, here for rehabilitation, strengthening, prior to discharge home with . [facility] Medical History Cervical cancer Essential hypertension Former smoker Paroxysmal atrial fibrillation Paroxysmal atrial flutter Sleep apnea Vitamin D deficiency Home Medications apixaban 2.5 mg tablet 2.5 mg PO BID BLOOD Thinner 10/07/21 [History Last Taken Unknown] metoprolol tartrate 100 mg tablet 100 mg PO BID BLOOD PRESSURE 09/19/22 [History Last Taken Unknown] acetaminophen 500 mg tablet 1,000 mg PO Q8 Pain 09/25/22 [History Last Taken Unknown] ergocalciferol (vitamin D2) 1,250 mcg (50,000 unit) capsule (Vitamin D2) 1,250 mcg PO Q7D Supplement 09/25/22 [History Last Taken Unknown] food supplemt, lactose-reduced 0.08 gram-1.5 kcal/mL oral liquid (Ensure Plus High Protein) 120 ml PO 4X/DAY Supplement 09/25/22 [History Last Taken Unknown] melatonin 3 mg tablet 3 mg PO QHS PRN PRN Insomnia #0 tabs 09/25/22 [Rx Last Taken Unknown] menthol 0.44 %-zinc oxide 20.6 % topical ointment (Calmoseptine) 1 applic topical BID Skin 09/25/22 [History Last Taken Unknown] sulfamethoxazole 800 mg-trimethoprim 160 mg tablet (Bactrim DS) 1 tab PO BID Antibiotic 09/25/22 [History Last Taken Unknown] Allergy/AdvReac Type Severity Reaction Status Date / Time Iodine and Iodide Containing Allergy Severe rash Verified 09/19/22 19:05 Produc codeine AdvReac Unknown Unknown Verified 09/19/22 19:05 Family History Mother Congestive heart failure (CHF) Sister Atrial fibrillation Surgical History History of hysterectomy Social History (Updated 09/25/22 @ 19:[address] Adan Mccoy MD) household members: spouse Smoking Status: Former smoker how long ago did patient quit smokin years ago alcohol intake: current alcohol intake frequency: 0-2 drinks per day substance use type: does not use caffeine: Yes Type: coffee Number of servings: 1 ROS Constitutional Constitutional: Denies chills, fever(s) or weight gain ENT HEENT: Denies headache(s), nasal congestion or nasal discharge Cardiovascular Cardiovascular: Denies chest pain or palpitations Respiratory/Chest Respiratory/Chest: Denies cough, excessive phlegm production or shortness of breath with exertion Gastrointestinal Gastrointestinal: Denies abdominal pain, nausea or vomiting Genitourinary Genitourinary: Denies dysuria Musculoskeletal Musculoskeletal: Denies joint pain or joint swelling Integumentary Integumentary: Denies rash or wounds Neurologic Neurologic: Denies focal weakness, numbness or tingling Psychiatric Psychiatric: Denies anxiety, auditory hallucinations, depression, homicidal ideation or suicidal ideation Vital Signs Vital Signs Vital Signs: 09/25/22 15:39 09/25/22 15:39 09/25/22 18:14 Temperature 97.1 F L Temperature Source Temporal Pulse Rate 82 82 94 Pulse Rhythm Irregular Pulse Strength Normal (2+) Respiratory Rate 17 17 Respiratory Effort Normal Non-Labored Respiratory Depth Normal Respiratory Pattern Normal Blood Pressure 112/68 128/77 H Blood Pressure Mean 82 Blood Pressure Source Monitor Blood Pressure Position Semi-Fowlers Blood Pressure Location Right Arm Pulse Ox 97 97 Oxygen Delivery Method Room Air Room Air Weight Weight: 55.2 kg Body Mass Index (BMI) 19.1 Physical Exam Const alert General Appearance: cooperative HEENT normocephalic Eyes PERRL and EOMs intact bilaterally Neck supple, no JVD and no carotid bruits Resp normal respiratory effort, normal air movement and clear to auscultation bilaterally Cardio regular rate and regular rhythm GI normal to inspection, nondistended, normoactive bowel sounds, non-tender and non-distended Extremity normal capillary refill General Extremity: Negative for edema Skin no rashes or lesions noted General Skin Exam: no breakdown Psych affect normal Appearance: appropriate Assessment & Plan Assessment/Plan (1) Debility: (2) Closed right hip fracture: (3) Encephalopathy: (4) Dementia: (5) Atrial fibrillation: (6) Sleep apnea: PLAN: Plan 81 year old female with below past medical history hospitalized for right hip fracture, underwent right hip ORIF intramedullary nail fixation, locked 09/21/[address] Real Bermudez, complicated by encephalopathy secondary to underlying dementia, admitted to TCU with debility, here for rehabilitation, strengthening, prior to discharge home with . * Debility - PT/OT. * Cognition - ST. * Pain - Tylenol 1000mg q8h, Tramadol 50mg q6h prn pain (1-5), Oxycodone 2.5mg q4h prn pain (6-10). * Bowel - senna/colace 1 tablet bid, Dulcolax 10mg pr x 1 prn, MOM 30ml po x 1 prn. * Adult immunization - Administer pneumonia vaccine, covid19 vaccine, flu vaccine as appropriate. * DVT prophyalxis - Not necessary, already on Eliquis. * Atrial fibrillation - Eliquis 2.5mg bid. * Nutrition - Ensure Plus 120ml 4x/day. * Vitamin D deficiency - D 1.25mg per week. * Insomnia - Melatonin 3mg qhs prn. * Skin irritation - Calmoseptine topical bid. * K. Pneumoniae urinary tract infection - Bactrim DS 1 tablet bid thru 09/28/2022.
[2022-09-25] MEDS: Acetaminophen 500 MG Tablet 1000 MG PO (20:13)
[2022-09-25] MEDS: Senna/Docusate Sodium 1 Tablet PO (20:16)
[2022-09-25] MEDS: Menthol/Lanolin/Calamine/Znox 113 GM Tube 1 APPLIC TOPICAL (20:19)
[2022-09-25] MEDS: traMADol 50 MG Tablet PO (21:59)
[2022-09-25] MEDS: MELATONIN 3 MG TABLET PO (22:00)
--- NOTE | 2022-09-26 02:18 | NURSING ---
Patient attempting to self transfer several times. Alarm in place to notify staff of attempts to self transfer. Patient wanted to know why there were people in her house and began yelling at WORK STATION SUPPORT SPECIALIST. This nurse entered room, asked patient what was wrong. Patient quit yelling. Re-oriented to place, explaining to her why she was here and that she needed to call for assistance to get up due to doctor orders. Patient currently in recliner with feet up. Will continue to monitor.
[2022-09-26] MEDS: Acetaminophen 500 MG Tablet 1000 MG PO ×3 (04:55→20:36)
[2022-09-26 04:56] VITALS: BP 115/74; PULSE 83
[2022-09-26] MEDS: Metoprolol Tartrate 100 MG Tablet PO ×2 (04:56→18:10)
[2022-09-26] MEDS: APIXABAN 2.5 MG TABLET (WCH) PO ×2 (04:56→18:10)
[2022-09-26] MEDS: Ensure Plus High Protein 120 ML LIQUID PO ×4 (04:56→20:38)
[2022-09-26] MEDS: Senna/Docusate Sodium 1 Tablet PO ×2 (04:56→18:11)
[2022-09-26] MEDS: Menthol/Lanolin/Calamine/Znox 113 GM Tube 1 APPLIC TOPICAL ×2 (05:01→18:11)
[2022-09-26 05:42] LABS: Absolute Lymphocyte Count 1.27 X10^3/uL (0.83-4.51); Absolute Neutrophil Count 5.7 X10^3/uL (2.0-7.7); Basophil# 0.05 X10^3/uL; Basophil% 0.6 % (0-1); Eosinophil# 0.28 X10^3/uL; Eosinophils% 3.5 % (0-5); Hematocrit 32.1 % (37-47); Hemoglobin 10.5 g/dL (12.0-15.0); Lymphocyte # 1.27 X10^3/ul (0.83-4.51); Lymphocyte % 15.7 % (19-41); Mean Corp Hgb Conc 32.7 g/dL (32-36); Mean Corpuscular Volume 100.9 fL (81-99); Mean Platelet Vol. 10.4 fl (6.2-12.0); Monocyte% 8.6 % (0-10); NRBC Flagged by Analyzer 0 % (0-5); Neutrophil # 5.72 X10^3/uL (2.7-7.7); Neutrophil % 70.5 % (47-70); Platelet Count 215 K/mm3 (150-450); RBC Distribution Width CV 14.4 % (11.6-14.6); Red Blood Count 3.18 M/mm3 (4.2-5.4); White Blood Count 8.1 K/mm3 (4.4-11.0)
[2022-09-26 06:49] LABS: Anion Gap 6 (5-15); BUN 27 mg/dL (7-18); BUN/Creat Ratio 28.5 RATIO (10-20); Calcium,Total 8.7 mg/dL (8.5-10.1); Chloride 103 mmol/L (98-107); Creatinine, Serum 0.95 mg/dL (0.55-1.02); EST Glomerular Filtration Rate 60 mL/min (>60); Est Glom Filt Rate - Afr Amer 72 mL/min (>60); Glucose 123 mg/dL (74-106); Potassium 4.6 mmol/L (3.5-5.1); Sodium Level 134 mmol/L (136-145)
[2022-09-26] MEDS: Smz/Tmp Ds Tablet 1 TABLET PO ×2 (08:44→18:10)
--- NOTE | 2022-09-26 10:35 | PHA.CONS_ITS ---
TCU RX Drug Regimen Review Subjective: TCU Admission. 81 YOF presented to the ER with a fall. Hospitalized for right hip fracture, underwent right hip ORIF intramedullary nail fixation, locked 09/21/[address] Real Bermudez, complicated by encephalopathy secondary to underlying dementia. Admitted to TCU with debility for strengthening and reha bilitation. Objective: Allergies Iodine and Iodide Containing Produc Allergy (Severe, Verified 09/19/22 19:05) rash codeine Adverse Reaction (Unknown, Verified 09/19/22 19:05) Unknown Current Medications Generic Name Dose Route Start Last Admin Trade Name Freq PRN Reason Stop Dose Admin Acetaminophen 1,000 mg 09/25/22 22:00 09/26/22 04:55 Acetaminophen 500 Mg Tablet PO 1,000 mg Q8 TREVER Administration Apixaban 2.5 mg 09/25/22 18:00 09/26/22 04:56 Apixaban 2.5 Mg Tablet (Wch) PO 2.5 mg BID TERVER Administration Bisacodyl 10 mg 09/25/22 19:54 Bisacodyl 10 Mg Suppository RC X1 PRN Constipation Calamine/Phenol 1 applic 09/25/22 18:00 09/26/22 05:01 Menthol/Lanolin/Calamine/Znox 113 Gm Tube TOPICAL 1 applic BID TREVER Administration Protocol Ergocalciferol 1.25 mg 10/02/22 10:00 Ergocalciferol 1.25 Mg (50, 000 Unit) Capsule PO Q7D TREVER Magnesium Hydroxide 30 ml 09/25/22 19:54 Magnesium Hydroxide 30 Ml Udc PO X1 PRN CONSTIPATION Melatonin 3 mg 09/25/22 15:51 09/25/22 22:00 Melatonin 3 Mg Tablet PO 3 mg QHS PRN PRN Administration Insomnia Metoprolol Tartrate 100 mg 09/25/22 18:00 09/26/22 04:56 Metoprolol Tartrate 100 Mg Tablet PO 100 mg BID TREVER Administration Nutritional Formula (Lactose Free) 120 ml 09/25/22 17:00 09/26/22 04:56 Ensure Plus High Protein 120 Ml Liquid PO 120 ml 4X/DAY TREVER Administration Oxycodone HCl 2.5 mg 09/25/22 19:54 Oxycodone 5 Mg Tablet PO Q4H PRN PRN Pain Score 6-10 Senna/Docusate Sodium 1 tablet 09/25/22 20:00 09/26/22 04:56 Senna/Docusate Sodium 1 Tablet PO 1 tablet BID TREVER Administration Tramadol HCl 50 mg 09/25/22 19:54 09/25/22 21:59 Tramadol 50 Mg Tablet PO 50 mg Q6H PRN PRN Administration Pain Score 1-5 Trimethoprim/Sulfamethoxazole 1 tablet 09/25/22 17:00 09/26/22 08:44 Smz/Tmp Ds Tablet PO 09/28/22 08:01 1 tablet BIDCM TREVER Administration Tuberculin PPD 0.1 ml 10/03/22 10:00 Tuberculin,Purif.Prot.Deriv. 50 Tu/Ml Vial ID 10/03/22 10:01 X1 ONE Problem List (Last Reviewed 09/25/22 @ 19:[address] Adan Mccoy MD) Sleep apnea (Acute) Atrial fibrillation (Acute) Dementia (Acute) Encephalopathy (Acute) Closed right hip fracture (Acute) Debility (Acute) Vital Signs Temp Pulse Resp BP Pulse Ox O2 Del Method 97.1 F L 83 17 115/74 97 Room Air 09/25/22 15:39 09/26/22 04:56 09/25/22 15:39 09/26/22 04:56 09/25/22 15:39 09/25/22 15:39 Oxygen Delivery Method Room Air Weight: 55.2 kg Body Mass Index (BMI) 19.1 Sodium 134 mmol/L (136-145) L 09/26/22 05:17 Potassium 4.6 mmol/L (3.5-5.1) 09/26/22 05:17 Chloride 103 mmol/L (98-107) 09/26/22 05:17 Carbon Dioxide 25.0 mmol/L (21.0-32.0) 09/26/22 05:17 Anion Gap 6 (5-15) 09/26/22 05:17 BUN 27 mg/dL (7-18) H 09/26/22 05:17 Creatinine 0.95 mg/dL (0.55-1.02) 09/26/22 05:17 Est GFR (MDRD) Af Amer 72 mL/min (>60) 09/26/22 05:17 Est GFR (MDRD) Non-Af 60 mL/min (>60) 09/26/22 05:17 BUN/Creatinine Ratio 28.5 RATIO (10-20) H 09/26/22 05:17 Glucose 123 mg/dL (74-106) H 09/26/22 05:17 Assessment/Plan: 1. Pain: acetaminophen 1000mg PO Q8, tramadol 50mg PO Q6H PRN pain 1-5 and oxycodone 2.5mg PO Q4H PRN pain 6-10. Resident has had 1 dose of tramadol for a pain of 1 in the hip and no doses of oxycodone. Please continue to monitor for increased pain, PRN usage, constipation and respiratory depression. 2. Bowel: senna/docusate 1T PO BID, bisacodyl 10mg RC x1 PRN constipation and MOM 30mL PO x1 PRN constipation. Resident has not had a documented bowel movement and has not used any PRN doses. Please continue to monitor for constipation and PRN usage. 3. Atrial fibrillation: apixaban 2.5mg PO BID and metoprolol tartrate 100mg PO BID. Eliquis dose appropriate based on age >80 and weight <60kg. Please continue to monitor for S/S of bleeding, hemoglobin (last 10.5g/dL), BP (last 115/74) and HR (last 83). 4. K. pneumoniae UTI: Bactrim DS 1T PO BID thru 09/28/22. Please continue to monitor for S/S of infection, diarrhea, potassium (last 4.6mmol/L) and renal function. 5. Vitamin D deficiency: ergocalciferol 1.25mg PO weekly. Please continue to monitor vitamin D levels (last 09/22/22). 6. Insomnia: melatonin 3mg PO QHS PRN insomnia. Resident has had 1 dose so far. Please continue to monitor for insomnia, PRN usage and excessive drowsiness. Assessment/Plan for indications treated with psychotropic medications: None Medical chart and medication regimen reviewed. The following medication irregularities or issues were identified: None Date of Note:: 09/26/22
[2022-09-26] MEDS: Tuberculin,Purif.prot.deriv. 50 TU/ML Vial 0.1 ML ID (11:36)
--- NOTE | 2022-09-26 13:43 | NURSING ---
Billing Control Clerk Note; Activity asset: Complete Lakesha is independent in her choice of daily activities. When not visiting w/family and friends she stated she enjoys reading and watch tv. I asked if the therapy dog and barrel marker could visit w/her and she stated yes that would be fine. Lakesha is not interested in group activities at this time, will continue to do social visit and encourage small group activities for social well-being.
--- NOTE | 2022-09-26 15:32 | CASEMGMT ---
Social Work Received call from son, Steve, with several questions about plan of care, LOS, insurance, DC plans. Son is listed as a contact. SW spoke with son at length to review all information. SW confirmed chart information on PLOF with son. Some questions, son was unsure of and SW to complete with pt/. (Note: pt's is son's stepfather). SW educated to [facility] insurance with NRD 10/01, continued stay is not guaranteed with each review, along with the process of the reviews and means for discharge. Pt is PWBS and is to f/u with Dr. Bermudez in two weeks. Son explained mother does have dx of Dementia and at home her symptoms match with the dx. Pt's is not in the best physical health either, using a w/c and O2 daily. However, does complete the home management tasks, meds and finances for pt. Son expressed concern about pt and living at home together. SW explained in detail the process for IDT recommendations, skilled and nonskilled HHC, AL and SNF, and insurance coverage for those options. Son would like to see both in an AL, but believes pt/ would not agree to it. SW explained POC mtg next week and once IDT has more time to work with pt, recommendations can be made on safe discharge plans. Son requested a meeting with pt's , himself and son's prior to the POC mtg, without pt, to review recommendations prior. SW offered to have meeting, after talking further with pt and on wishes. Son expressed understanding. Son expressed appreciation for time and information. SW to continue to follow. Uma Esparza, POOJA ROBW
[2022-09-26 16:00] VITALS: BP 107/75; PULSE 91; RESP 14; TEMP 36; O2SAT 98
[2022-09-26 18:10] VITALS: BP 107/75; PULSE 91
--- NOTE | 2022-09-26 18:52 | NURSING ---
per cnc machinist 2nd shift report pt with no record of LBM, attempted to give Milk of mag but pt refused, stated I am not constipated, she had BM in AM COMPUTER FORENSIC EXAMINER's stated she did not have one for them, will check with therapy staff.
[2022-09-26] MEDS: Magnesium Hydroxide 30 ML UDC PO (20:38)
[2022-09-26 20:45] VITALS: PULSE 92; RESP 14; O2SAT 97
[2022-09-27 05:48] LABS: Hematocrit 33.2 % (37-47); Hemoglobin 10.7 g/dL (12.0-15.0)
[2022-09-27] MEDS: Menthol/Lanolin/Calamine/Znox 113 GM Tube 1 APPLIC TOPICAL ×2 (06:17→17:46)
[2022-09-27] MEDS: Senna/Docusate Sodium 1 Tablet PO ×2 (06:18→17:43)
[2022-09-27] MEDS: APIXABAN 2.5 MG TABLET (WCH) PO ×2 (06:18→17:43)
[2022-09-27 06:19] VITALS: BP 123/62; PULSE 89
[2022-09-27] MEDS: Ensure Plus High Protein 120 ML LIQUID PO ×3 (06:19→17:41)
[2022-09-27] MEDS: Metoprolol Tartrate 100 MG Tablet PO ×2 (06:19→17:43)
[2022-09-27] MEDS: Acetaminophen 500 MG Tablet 1000 MG PO ×3 (06:19→19:51)
--- NOTE | 2022-09-27 07:45 | NURSING ---
While in pt's RM this nurse noticed pt's mepilex drsg on her bed side table. She voiced that she does not know how it came off or when. The 3 incision sites are well approximated, clean, and w/o redness. Top incision has 8 yolie and is edematous. Middle incision has 3 yolie. Bottom incision has 2 yolie. The incisions were cleansed w/ soap and water, patted dry, and DSD applied. Pt tolerated well and denies pain.
[2022-09-27] MEDS: Smz/Tmp Ds Tablet 1 TABLET PO ×2 (07:51→17:42)
--- NOTE | 2022-09-27 10:45 | CASEMGMT ---
Social Work Met with patient to complete initial assessment. Introduced self and role. Educated to [facility] insurance with NRD 10/01 and continued stay is not guaranteed with each review. Although pt scored 6/15 on BIMS, pt was able to explain and comprehend wishes for code status and MOLST form, which is to be a DNR-CCA, no intubation. Nursing notified. MOLST placed in folder. Pt's goals are to return home with , and stated can assist at home. IDT to follow and assess for safe DC plans. Uma Esparza, POWDER LINE REPAIRER CLINICAL ADMISSIONS MANAGER
[2022-09-27 15:10] VITALS: BP 98/66; PULSE 83; RESP 16; TEMP 35.9; O2SAT 97
[2022-09-27 17:43] VITALS: PULSE 81
[2022-09-27] MEDS: traMADol 50 MG Tablet PO (19:49)
[2022-09-27] MEDS: MELATONIN 3 MG TABLET PO (19:50)
[2022-09-28 06:41] VITALS: BP 129/78; PULSE 109
[2022-09-28] MEDS: Senna/Docusate Sodium 1 Tablet PO ×2 (06:41→17:32)
[2022-09-28] MEDS: Acetaminophen 500 MG Tablet 1000 MG PO ×3 (06:41→20:05)
[2022-09-28] MEDS: APIXABAN 2.5 MG TABLET (WCH) PO ×2 (06:41→17:33)
[2022-09-28] MEDS: Metoprolol Tartrate 100 MG Tablet PO (06:41)
[2022-09-28] MEDS: Menthol/Lanolin/Calamine/Znox 113 GM Tube 1 APPLIC TOPICAL ×2 (07:06→17:30)
[2022-09-28] MEDS: Smz/Tmp Ds Tablet 1 TABLET PO (08:28)
[2022-09-28 10:00] VITALS: PULSE 68; RESP 14; O2SAT 98
[2022-09-28] MEDS: Ensure Plus High Protein 120 ML LIQUID PO ×3 (12:12→20:05)
[2022-09-28 15:28] VITALS: BP 94/60; PULSE 73; RESP 14; TEMP 36.1; O2SAT 94
[2022-09-28 17:35] VITALS: BP 101/60; PULSE 98
[2022-09-28] MEDS: MELATONIN 3 MG TABLET PO (20:05)
[2022-09-28] MEDS: traMADol 50 MG Tablet PO (20:05)
[2022-09-28 20:08] VITALS: BP 102/54; PULSE 96
[2022-09-29] MEDS: Acetaminophen 500 MG Tablet 1000 MG PO ×3 (05:21→19:54)
[2022-09-29] MEDS: APIXABAN 2.5 MG TABLET (WCH) PO ×2 (05:21→17:30)
[2022-09-29 05:22] VITALS: BP 145/62; PULSE 78
[2022-09-29] MEDS: Senna/Docusate Sodium 1 Tablet PO ×2 (05:22→17:31)
[2022-09-29] MEDS: Metoprolol Tartrate 100 MG Tablet PO ×2 (05:22→17:33)
[2022-09-29] MEDS: Menthol/Lanolin/Calamine/Znox 113 GM Tube 1 APPLIC TOPICAL ×2 (05:42→17:32)
[2022-09-29] MEDS: Ensure Plus High Protein 120 ML LIQUID PO ×3 (05:43→19:55)
[2022-09-29 15:10] VITALS: BP 100/62; PULSE 88; RESP 16; TEMP 36.4; O2SAT 98
[2022-09-29 17:33] VITALS: PULSE 88
[2022-09-29 19:30] VITALS: O2SAT 96
[2022-09-29] MEDS: MELATONIN 3 MG TABLET PO (19:55)
[2022-09-29] MEDS: traMADol 50 MG Tablet PO (19:55)
[2022-09-30] MEDS: APIXABAN 2.5 MG TABLET (WCH) PO ×2 (05:46→17:25)
[2022-09-30] MEDS: Ensure Plus High Protein 120 ML LIQUID PO ×3 (05:46→19:26)
[2022-09-30] MEDS: Acetaminophen 500 MG Tablet 1000 MG PO ×3 (05:46→19:24)
[2022-09-30 05:47] VITALS: BP 131/65; PULSE 87
[2022-09-30] MEDS: Senna/Docusate Sodium 1 Tablet PO ×2 (05:47→17:25)
[2022-09-30] MEDS: Metoprolol Tartrate 100 MG Tablet PO ×2 (05:47→17:25)
[2022-09-30] MEDS: Menthol/Lanolin/Calamine/Znox 113 GM Tube 1 APPLIC TOPICAL ×2 (05:51→17:27)
[2022-09-30 14:22] VITALS: BP 101/55; PULSE 74; RESP 16; TEMP 36.2; O2SAT 100
[2022-09-30 17:25] VITALS: PULSE 73
[2022-09-30] MEDS: traMADol 50 MG Tablet PO (19:24)
[2022-09-30] MEDS: MELATONIN 3 MG TABLET PO (19:24)
--- NOTE | 2022-09-30 20:30 | NURSING ---
Updated Dr. Mccoy on suspected hematoma to the proximal hip incision. Affected area is soft and mobile. Pt denied any c/o pain upon palpation. No redness or warmth noted. Temp 97.9, oral. Does not comply w/ application of ice or follow hip precautions d/t decreased cognition. In addition to notifying ortho office tomorrow, may compress affected area if pt will allow- telephone order read back.
--- NOTE | 2022-09-30 21:15 | NURSING ---
Skiving Machine Operator calls unit to notify staff pt called questioning if she, the pt, is able to call her son. This nurse entered pt room. Pt sitting on edge of bed. Initially is irritable then quickly becomes calm. Questions this nurse if she is able to call her son as she thinks she is unable to get in her home. Reoriented pt to place and time. Pt then verbalizes she does not need to call her son at this time. Offered to assist pt back to supine position and pt declines. Bed alarm activated. Call light w/ in reach. Will continue to monitor.
[2022-10-01] MEDS: Acetaminophen 500 MG Tablet 1000 MG PO ×3 (04:56→19:37)
[2022-10-01 04:57] VITALS: BP 153/81; PULSE 82
[2022-10-01] MEDS: Ensure Plus High Protein 120 ML LIQUID PO ×4 (04:57→19:38)
[2022-10-01] MEDS: Metoprolol Tartrate 100 MG Tablet PO ×2 (04:57→18:05)
[2022-10-01] MEDS: APIXABAN 2.5 MG TABLET (WCH) PO ×2 (04:57→18:04)
[2022-10-01] MEDS: Menthol/Lanolin/Calamine/Znox 113 GM Tube 1 APPLIC TOPICAL ×2 (04:58→18:07)
--- NOTE | 2022-10-01 09:54 | NURSING ---
Addendum entered by Richard Lott 10/01/22 13:37: NURSE FROM OFFICE CALLED BACK AND PT APPOINTMENT WILL BE 10/05/22 AT 1430. TRANSPORT WILL ELECTRICAL PROJECT ENGINEER AT 1330 AND WILL MEET PT AT OFFICE. PT WILL SEE AND CALLED AND UPDATED. Original Note: CALLED OFFICE FOR FOLLOW UP APPOINTMENT WITH DR. MULLER. OFFICE STATED THEY WOULD PUT ROB MESSAGE OUT TO TO SEE IF WANTS TO SEE PT AND IF SHE CAN BE SEEN IN [place] AND NOT [facility].
[2022-10-01 14:52] VITALS: BP 99/60; PULSE 82; RESP 14; TEMP 36.2; O2SAT 96
[2022-10-01 18:05] VITALS: BP 107/70; PULSE 88
[2022-10-01 18:09] VITALS: BP 107/70; PULSE 88
[2022-10-01] MEDS: traMADol 50 MG Tablet PO (19:37)
[2022-10-01] MEDS: MELATONIN 3 MG TABLET PO (19:37)
[2022-10-01 20:15] VITALS: O2SAT 96
[2022-10-02] MEDS: Acetaminophen 500 MG Tablet 1000 MG PO ×3 (06:52→21:06)
[2022-10-02] MEDS: Menthol/Lanolin/Calamine/Znox 113 GM Tube 1 APPLIC TOPICAL ×2 (06:52→17:57)
[2022-10-02] MEDS: Senna/Docusate Sodium 1 Tablet PO (06:53)
[2022-10-02 06:56] VITALS: BP 121/75; PULSE 78
[2022-10-02] MEDS: Ensure Plus High Protein 120 ML LIQUID PO ×2 (06:56→11:21)
[2022-10-02] MEDS: Metoprolol Tartrate 100 MG Tablet PO ×2 (06:56→17:59)
[2022-10-02] MEDS: APIXABAN 2.5 MG TABLET (WCH) PO ×2 (08:13→17:58)
[2022-10-02] MEDS: Ergocalciferol 1.25 MG (50, 000 UNIT) Capsule PO (09:41)
[2022-10-02 09:45] VITALS: PULSE 70; RESP 16; O2SAT 98
--- NOTE | 2022-10-02 11:26 | CASEMGMT ---
Social Work BIMS (02/16) and PHQ-9 (10/29) completed for MDS assessment. POOJA WatersW
[2022-10-02 15:53] VITALS: BMI 17.6
[2022-10-02 16:00] VITALS: BP 107/70; PULSE 88; RESP 16; TEMP 36.1; O2SAT 97
[2022-10-02 17:59] VITALS: BP 107/70; PULSE 88
[2022-10-02] MEDS: Donepezil HCl 5 MG Tablet PO (21:06)
[2022-10-03] MEDS: Acetaminophen 500 MG Tablet 1000 MG PO ×3 (04:26→19:55)
[2022-10-03] MEDS: APIXABAN 2.5 MG TABLET (WCH) PO ×2 (04:26→18:15)
[2022-10-03 04:27] VITALS: BP 129/77; PULSE 77
[2022-10-03] MEDS: Senna/Docusate Sodium 1 Tablet PO ×2 (04:27→18:15)
[2022-10-03] MEDS: Metoprolol Tartrate 100 MG Tablet PO ×2 (04:27→18:15)
[2022-10-03] MEDS: Menthol/Lanolin/Calamine/Znox 113 GM Tube 1 APPLIC TOPICAL ×2 (04:27→18:16)
[2022-10-03 05:37] LABS: Absolute Neutrophil Count 4.9 X10^3/uL (2.0-7.7); Basophil# 0.05 X10^3/uL; Basophil% 0.7 % (0-1); Eosinophil# 0.37 X10^3/uL; Eosinophils% 4.8 % (0-5); Hematocrit 31.5 % (37-47); Hemoglobin 10.3 g/dL (12.0-15.0); Lymphocyte % 22.1 % (19-41); Mean Corp Hgb Conc 32.7 g/dL (32-36); Mean Corpuscular Hgb 33.6 pg (27.0-32.0); Mean Corpuscular Volume 102.6 fL (81-99); Mean Platelet Vol. 9.5 fl (6.2-12.0); Monocyte# 0.61 X10^3/uL; Monocyte% 7.9 % (0-10); NRBC Flagged by Analyzer 0 % (0-5); Neutrophil # 4.87 X10^3/uL (2.7-7.7); Neutrophil % 63.3 % (47-70); Platelet Count 307 K/mm3 (150-450); RBC Distribution Width CV 17.2 % (11.6-14.6); Red Blood Count 3.07 M/mm3 (4.2-5.4); White Blood Count 7.7 K/mm3 (4.4-11.0)
[2022-10-03 05:57] LABS: Anion Gap 5 (5-15); BUN 19 mg/dL (7-18); BUN/Creat Ratio 20.7 RATIO (10-20); Calcium,Total 8.4 mg/dL (8.5-10.1); Chloride 100 mmol/L (98-107); Creatinine, Serum 0.92 mg/dL (0.55-1.02); EST Glomerular Filtration Rate 62 mL/min (>60); Est Glom Filt Rate - Afr Amer 75 mL/min (>60); Estimated Creatinine Clearance 37.52 ml/min; Glucose 93 mg/dL (74-106); Potassium 4.3 mmol/L (3.5-5.1); Sodium Level 133 mmol/L (136-145)
--- NOTE | 2022-10-03 08:46 | NURSING ---
Quantity Surveyor Note; MDS for 10/02/2022 compete
--- NOTE | 2022-10-03 10:23 | CASEMGMT ---
Addendum entered by Uma Esparza 10/03/22 16:31: Received call from son to review POC mtg. Son stated he spoke with stepfather and encouraged to complete therapy training sooner/more frequently to ensure he can care for pt at home. Son stated he contact [facility] in [place] but they do not have any openings. Son inquired about other AL options. SW offered to send list. Son requested this worker provide list to flor[place] and he should be contacting this worker today. Son expressed appreciation for assistance. Received call from . stated he contacted all MEDIA MARKETING MANAGER agencies and there is no availability and unsure when friend would be in town to assist. SW suggested contact the friend for ETA. However, if cannot assist pt at home oe get additional assistance, revisited AL option. Educated to respite stay or temporary placement. agreed. SW offered AL list. stated he would like to come in for therapy training on 10/04 - SW scheduled for 1400 - and this worker to provide AL list to at that time. called back this worker and stated friend will be in town starting 10/06. SW contacted son to update on above conversation. SW to continue to follow. Original Note: Social Work IDT met with patient and then son and DIL via conference call for care plan meeting. Discussed patient's progress in PT/OT/SN. Educated to [facility] insurance with NRD 10/08 and continued stay is not guaranteed with each review. Cautioned family that insurance may issue DC for next week. IDT recommending 25/02 care, offered AL. Pt/hus adamant about not going to an AL. explained there is a friend coming in from [place] to stay on their property and assist pt at home, but unsure when that is happening. SW offered therapy training to see how pt is functioning and if he can assist. Hus can attend 10/08 at 0900. Hus agreed that if the friend is not home by the time the pt is discharged, he will need help. SW provided another list of nonskilled MEDIA MARKETING MANAGER agencies. Offered MOW. Hus denied stating cooking is not a problem. SW stressed pt cannot be left home alone; pt cannot call 911. Hus expressed understanding. SW to continue to follow. Uma Esparza, SPECIAL NEEDS BABYSITTER DIVISION SALES MANAGER
[2022-10-03] MEDS: Ensure Plus High Protein 120 ML LIQUID PO ×3 (12:43→19:58)
[2022-10-03] MEDS: Tuberculin,Purif.prot.deriv. 50 TU/ML Vial 0.1 ML ID (12:44)
[2022-10-03 15:48] VITALS: BP 106/65; PULSE 76; RESP 16; TEMP 36.4; O2SAT 98
[2022-10-03 18:15] VITALS: PULSE 76
[2022-10-03] MEDS: MELATONIN 3 MG TABLET PO (19:55)
[2022-10-03] MEDS: traMADol 50 MG Tablet PO (19:56)
[2022-10-03] MEDS: Donepezil HCl 5 MG Tablet PO (19:56)
[2022-10-03] MEDS: Mirtazapine 15 MG Tablet 7.5 MG PO (19:57)
[2022-10-03 20:30] VITALS: O2SAT 96
[2022-10-04] MEDS: Acetaminophen 500 MG Tablet 1000 MG PO ×3 (06:17→19:14)
[2022-10-04] MEDS: Senna/Docusate Sodium 1 Tablet PO ×2 (06:18→17:39)
[2022-10-04 06:29] VITALS: BP 134/68; PULSE 78
[2022-10-04] MEDS: Ensure Plus High Protein 120 ML LIQUID PO ×4 (06:29→19:16)
[2022-10-04] MEDS: Metoprolol Tartrate 100 MG Tablet PO ×2 (06:29→17:39)
[2022-10-04] MEDS: Menthol/Lanolin/Calamine/Znox 113 GM Tube 1 APPLIC TOPICAL ×2 (06:29→17:41)
[2022-10-04] MEDS: APIXABAN 2.5 MG TABLET (WCH) PO ×2 (06:29→17:39)
[2022-10-04 15:29] VITALS: BP 85/59; PULSE 80; RESP 16; TEMP 36.4; O2SAT 99
[2022-10-04 17:39] VITALS: PULSE 72
[2022-10-04] MEDS: traMADol 50 MG Tablet PO (19:15)
[2022-10-04] MEDS: MELATONIN 3 MG TABLET PO (19:15)
[2022-10-04] MEDS: Mirtazapine 15 MG Tablet 7.5 MG PO (19:16)
[2022-10-04] MEDS: Donepezil HCl 5 MG Tablet PO (19:16)
[2022-10-05] MEDS: Menthol/Lanolin/Calamine/Znox 113 GM Tube 1 APPLIC TOPICAL ×2 (04:58→17:04)
[2022-10-05] MEDS: Acetaminophen 500 MG Tablet 1000 MG PO ×3 (04:58→20:59)
[2022-10-05] MEDS: Ensure Plus High Protein 120 ML LIQUID PO ×3 (04:59→17:04)
[2022-10-05] MEDS: APIXABAN 2.5 MG TABLET (WCH) PO ×2 (04:59→17:01)
[2022-10-05 05:00] VITALS: BP 137/80; PULSE 78
[2022-10-05] MEDS: Senna/Docusate Sodium 1 Tablet PO ×2 (05:00→17:01)
[2022-10-05] MEDS: Metoprolol Tartrate 100 MG Tablet PO (05:00)
[2022-10-05 05:45] LABS: Hematocrit 36.5 % (37-47); Hemoglobin 11.5 g/dL (12.0-15.0)
[2022-10-05 16:00] VITALS: BP 99/60; PULSE 85; RESP 14; TEMP 36.4; O2SAT 96
--- NOTE | 2022-10-05 16:13 | CASEMGMT ---
Social Work presented to this worker's office. Discussed outcome of therapy training, DC plans and recommendations. expressed training going well and interested in coming in again 10/08 at 0900. stated the friend coming in from out of state to assist, will be delayed another month. SW inquired about assistance in the interim. stated he spoke with [facility] and they can assist. SW clarified this worker can coordinate skilled services and to coordinate nonskilled services. confirmed. SW advised to contact [facility] the following business day to schedule services. SW expressed IDTs concerns with pt and living together without additional assistance. It is not safe for to use rollator to ambulate with O2 with one arm and use the other arm to provide CGA to pt while using FWW. stated well I don't have to use the rollator...but I do have bad knees, a bad back and bad breathing. 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 So I'm not weak'. SW validated motivation, however, expressed the safety concern for reasons just stated. Revisited AL option. still denying. agreed to coordinate aides services for as many hours daily as possible. Reiterated NRD 10/08 and continued stay is not guaranteed. SW to continue to follow. SW received call from pt's son to get update on therapy training. Spoke with son at length. Explained IDTs recommendations for 25/02 outside of or AL d/t to safety physically and cognitively. SW answered son's questions and clarified difference between skilled and nonskilled HHC and insurance coverage. Son to speak with floridalma and also encourage additional assistance. Son expressed appreciation. Son plans to be home with pt to assist with day of discharge. Reiterated NRD 10/08 and continued stay is not guaranteed. SW to continue to follow. Uma Esparza, POOJA ROBW
[2022-10-05 17:02] VITALS: BP 99/54; PULSE 75
[2022-10-05] MEDS: Donepezil HCl 5 MG Tablet PO (20:59)
[2022-10-05] MEDS: Mirtazapine 15 MG Tablet 7.5 MG PO (20:59)
--- NOTE | 2022-10-05 23:04 | NURSING ---
Pleasantly confused. Many times patient has yelled out and confused to place and time. Patient stated she heard children yelling in the hallway and that the kids were playing. This nurse told her it was the staff out there in the [place] but she did not believe this nurse.
[2022-10-06] MEDS: Senna/Docusate Sodium 1 Tablet PO (05:25)
[2022-10-06] MEDS: Acetaminophen 500 MG Tablet 1000 MG PO ×3 (05:25→21:16)
[2022-10-06] MEDS: APIXABAN 2.5 MG TABLET (WCH) PO ×2 (05:25→18:32)
[2022-10-06 05:26] VITALS: BP 129/89; PULSE 87
[2022-10-06] MEDS: Metoprolol Tartrate 100 MG Tablet PO ×2 (05:26→18:37)
[2022-10-06] MEDS: Ensure Plus High Protein 120 ML LIQUID PO ×4 (05:29→18:37)
[2022-10-06] MEDS: Menthol/Lanolin/Calamine/Znox 113 GM Tube 1 APPLIC TOPICAL ×2 (06:34→18:32)
[2022-10-06 09:30] VITALS: PULSE 67
[2022-10-06] MEDS: LORazepam 0.5 MG Tablet 0.25 MG PO (13:45)
[2022-10-06 14:12] VITALS: BP 104/52; PULSE 69; RESP 16; TEMP 36.2; O2SAT 98
[2022-10-06] MEDS: LORazepam 0.5 MG Tablet PO (14:36)
[2022-10-06 18:37] VITALS: BP 114/67; PULSE 90
[2022-10-06 18:46] VITALS: BP 114/67; PULSE 90
[2022-10-06] MEDS: Mirtazapine 15 MG Tablet 7.5 MG PO (21:17)
[2022-10-06] MEDS: Donepezil HCl 5 MG Tablet PO (21:17)
[2022-10-07] MEDS: Ensure Plus High Protein 120 ML LIQUID PO ×3 (04:49→17:04)
[2022-10-07 04:50] VITALS: BP 122/65; PULSE 87
[2022-10-07] MEDS: Metoprolol Tartrate 100 MG Tablet PO ×2 (04:50→17:04)
[2022-10-07] MEDS: Acetaminophen 500 MG Tablet 1000 MG PO ×2 (04:50→13:28)
[2022-10-07] MEDS: APIXABAN 2.5 MG TABLET (WCH) PO ×2 (04:50→17:05)
[2022-10-07] MEDS: Senna/Docusate Sodium 1 Tablet PO ×2 (04:51→17:05)
[2022-10-07] MEDS: Menthol/Lanolin/Calamine/Znox 113 GM Tube 1 APPLIC TOPICAL ×2 (04:53→17:05)
[2022-10-07 14:17] VITALS: BP 104/63; PULSE 80; RESP 16; TEMP 36.2; O2SAT 98
[2022-10-07 17:04] VITALS: PULSE 80
--- NOTE | 2022-10-07 20:33 | NURSING ---
Pt refusing hs meds. Irritable and agitated. Allows this nurse to perform a brief assessment. Call light w/ in reach. Personal alarm in use. Will continue to monitor.
[2022-10-08 04:42] VITALS: BP 133/87; PULSE 86
[2022-10-08] MEDS: Metoprolol Tartrate 100 MG Tablet PO ×2 (04:42→16:56)
[2022-10-08] MEDS: Acetaminophen 500 MG Tablet 1000 MG PO ×2 (04:42→20:12)
[2022-10-08] MEDS: Senna/Docusate Sodium 1 Tablet PO (04:43)
[2022-10-08] MEDS: APIXABAN 2.5 MG TABLET (WCH) PO ×2 (04:43→16:56)
[2022-10-08] MEDS: Menthol/Lanolin/Calamine/Znox 113 GM Tube 1 APPLIC TOPICAL ×2 (04:44→16:57)
--- NOTE | 2022-10-08 11:54 | MDS.RN ---
Information for the mds was obtained from review of the clinical record, interview of resident, staff, and direct observation of resident's care.
[2022-10-08 14:15] VITALS: BP 104/52; PULSE 67; RESP 14; TEMP 36.3; O2SAT 94
--- NOTE | 2022-10-08 16:09 | CASEMGMT ---
Addendum entered by Uma Esparza 10/09/22 14:33: Spoke with and he is requesting DC 10/13. IDT agreeable. Pt is in unique area and insurance is not widely accepted. SW made referral to 6 different [facility] agencies via [employer]. has no preference. [facility] cannot service pt's area. presented to this worker's office requesting FWW and BSC. SW to send referral to [facility]. to purchase other needed DME from [facility]. to transport home. Received call from son. SW provided update on DC date and DC needs. Son expressed appreciation for assistance and requested to speak with nurse. SW transferred to nurse's station. SW placed referral to [facility]. Plan: DC 10/13, C PT/OT/SW/VASQUEZ, FWW, BSC Original Note: Social Work Insurance provided approved with NRD or LCD 10/12, with anticipated discharge date. SW spoke with and provided option for DC 10/13 or 10/16, from insurance outcome. will speak with sson and pt then notify this worker tomorrow of choice. would like to use [facility]. SW made referral via [employer]Port for PT/OT/SW/VASQUEZ. SW to make APS referral at time of DC as IDT is recommending ECF for pt or 24/7 care in addition to . Uma Esparza, POOJA ROBW
[2022-10-08 16:56] VITALS: PULSE 73
[2022-10-08] MEDS: Ensure Plus High Protein 120 ML LIQUID PO (20:11)
[2022-10-08] MEDS: MELATONIN 3 MG TABLET PO (20:11)
[2022-10-08] MEDS: Mirtazapine 15 MG Tablet 7.5 MG PO (20:12)
[2022-10-08] MEDS: Donepezil HCl 5 MG Tablet PO (20:13)
[2022-10-09] MEDS: Acetaminophen 500 MG Tablet 1000 MG PO ×3 (05:58→20:44)
[2022-10-09 05:59] VITALS: BP 148/70; PULSE 78
[2022-10-09] MEDS: APIXABAN 2.5 MG TABLET (WCH) PO ×2 (05:59→17:28)
[2022-10-09] MEDS: Ensure Plus High Protein 120 ML LIQUID PO ×4 (05:59→20:45)
[2022-10-09] MEDS: Senna/Docusate Sodium 1 Tablet PO (05:59)
[2022-10-09] MEDS: Metoprolol Tartrate 100 MG Tablet PO (05:59)
[2022-10-09] MEDS: Menthol/Lanolin/Calamine/Znox 113 GM Tube 1 APPLIC TOPICAL ×2 (06:00→17:27)
[2022-10-09] MEDS: Ergocalciferol 1.25 MG (50, 000 UNIT) Capsule PO (10:39)
[2022-10-09 13:34] VITALS: BP 94/58; PULSE 79; RESP 16; TEMP 36.1
[2022-10-09 14:09] VITALS: BMI 16.6
[2022-10-09 18:11] VITALS: BP 91/54; PULSE 82
--- NOTE | 2022-10-09 18:38 | DS.PCM_ITS ---
Providers Date of Admission: 09/25/22 Primary Care Physician: Dr. Bárbara Temple MD Reason For Visit: INTERTROCAHANTERIC FRACTURE Diagnosis Discharge Diagnosis (1) Debility: Status: Acute Code(s): R53.81 - Other malaise (2) Closed right hip fracture: Status: Acute Code(s): S72.001A - Fracture of unspecified part of neck of right femur, initial encounter for closed fracture (3) Encephalopathy: Status: Acute Code(s): G93.40 - Encephalopathy, unspecified (4) Dementia: Status: Acute Code(s): F03.90 - Unspecified dementia, unspecified severity, without behavioral disturbance, psychotic disturbance, mood disturbance, and anxiety (5) Atrial fibrillation: Status: Acute Code(s): I48.91 - Unspecified atrial fibrillation (6) Sleep apnea: Status: Acute Code(s): G47.30 - Sleep apnea, unspecified Plan 81 year old female with below past medical history hospitalized for right hip fracture, underwent right hip ORIF intramedullary nail fixation, locked 09/21/[address] Real Bermudez, complicated by encephalopathy secondary to underlying dementia, admitted to TCU with debility, here for rehabilitation, strengthening, prior to discharge home with . * Debility - PT/OT. * Cognition - ST. * Pain - Tylenol 1000mg q8h, Tramadol 50mg q6h prn pain (1-5), Oxycodone 2.5mg q4h prn pain (6-10). * Bowel - senna/colace 1 tablet bid, Dulcolax 10mg pr x 1 prn, MOM 30ml po x 1 prn. * Adult immunization - Administer pneumonia vaccine, covid19 vaccine, flu vaccine as appropriate. * DVT prophyalxis - Not necessary, already on Eliquis. * Atrial fibrillation - Eliquis 2.5mg bid. * Nutrition - Ensure Plus 120ml 4x/day. * Vitamin D deficiency - D 1.25mg per week. * Insomnia - Melatonin 3mg qhs prn. * Skin irritation - Calmoseptine topical bid. * K. Pneumoniae urinary tract infection - Bactrim DS 1 tablet bid thru 09/28/2022. Medications at Discharge Home Medications apixaban 2.5 mg tablet 2.5 mg PO BID BLOOD Thinner 10/07/21 acetaminophen 500 mg tablet 1,000 mg PO Q8 Pain 09/25/22 donepezil 5 mg tablet 5 mg PO QHS 30 days #30 tabs 10/09/22 metoprolol tartrate 100 mg tablet 100 mg PO BID 30 days #60 tabs 10/09/22 mirtazapine 15 mg tablet 7.5 mg PO QHS 30 days #15 tabs 10/09/22 Hospital Course Operations - (Right hip ORIF intramedullary nail fixation.) Procedures None Summary of Care Provided Minutes Spent on Discharge: 35 Hospital Course: 81 year old female with below past medical history hospitalized for right hip fracture, underwent right hip ORIF intramedullary nail fixation, locked 09/21/[address] Real Bermudez, complicated by encephalopathy secondary to underlying dementia, admitted to TCU with debility, here for rehabilitation, strengthening, prior to discharge home with . Discharge home with 10/13/2022, Home Health Care PT/OT/SW/VASQUEZ, Front wheeled walker, Bedside commode. Physical Exam Const alert General Appearance: cooperative HEENT normocephalic Eyes PERRL and EOMs intact bilaterally Neck supple, no JVD and no carotid bruits Resp normal respiratory effort, normal air movement and clear to auscultation bilaterally Cardio regular rate and regular rhythm GI normal to inspection, nondistended, normoactive bowel sounds, non-tender and non-distended Extremity normal capillary refill General Extremity: Negative for edema Skin no rashes or lesions noted General Skin Exam: no breakdown Psych affect normal Appearance: appropriate Medical Records Data Medical Nutrition Assessment Dietitian: Malnutrition Criteria Met Start: 09/26/22 16:09 Freq: Status: Active Protocol: Document 10/03/22 12:22 [facility] (Rec: 10/03/22 12:22 [facility] [id number]) Nutrition Malnutrition Evidence of Malnutrition Exists Yes Malnutrition (severe): Chronic Evidenced By Suboptimal Energy Intake ( Severe),Weight Loss (Severe), Physical Changes (Severe) Intake Problem Inadequate Oral Intake Status Inactive Problem Clinical Problem Acute Disease or Injury Related Malnutrition Etiology related to advanced age, confusion and inadequate energy intake Signs/Symptoms as evidenced by <50% po intake of meals x >1 month, unintentional 7.1% wt loss since adm (BMI 17.7) and fat/ muscle wasting in face, clavicle, arms Status Active Problem Biting/Chewing Difficulty Etiology related to edentulous/poor dentition Signs/Symptoms as evidenced by res preference for mech altered food consistencies. Status Active Problem Recommendation Dietitian Recommendations/Changes Will continue Regular diet as ordered w/ soft and bite sized per res preferences Will continue ONS w/ medpass Will continue to provide fortified foods w/ meals as able Rec order appetite stimulant to help encourage increased po intake. Weight / BMI Weight Weight: 48.172 kg Body Mass Index (BMI) 16.6 ABG / Lab / Microbiology Data Result Diagrams: 10/05/22 05:18 10/03/22 05:10 Microbiology: Microbiology 09/29/22 06:00 Nasal Secretion SARS-CoV-2 Antigen (Rapid) - Final 09/27/22 06:55 Nasal Secretion SARS-CoV-2 Antigen (Rapid) - Final D/C Instructions Discharge Diet: No restrictions Discharge Activity: Return to Normal Activity, May Shower and Use Walker Weight Bearing Status: Weight bearing as tolerated Call your doctor if you observe: Fever of 101 or Higher, Inability to urinate, I nability to have a bowel movement, Shortness of breath, Dizziness, Fainting spells, Swelling in the ankles, Chest pain and Uncontrolled pain Additional Instructions: Discharge home with 10/13/2022, Home Health Care PT/OT/SW/VASQUEZ, Front wheeled walker, Bedside commode. Please Follow Up With: Real Bermudez MD (will see Evelina) When: As scheduled. Meaningful Use Info Meaningful Use Diagnoses (Choose all that apply): None applicable Discharge Plan Admission Admit Date/Time: 09/25/22 15:18 Primary Reason for Your Visit: Debility. Attending Provider: Adan Mccoy Chi Primary Care Provider: Bárbara Temple Instructions Additional Instructions / Restrictions: Discharge home with 10/13/2022, Home Health Care PT/OT/SW/VASQUEZ, Front wheeled walker, Bedside commode. Discharge Orders/Prescriptions Prescriptions: New donepezil 5 mg Tablet 5 mg PO QHS 30 Days Qty: 30 0RF metoprolol tartrate 100 mg Tablet 100 mg PO BID 30 Days Qty: 60 0RF mirtazapine 15 mg Tablet 7.5 mg PO QHS 30 Days Qty: 15 0RF Continued apixaban 2.5 MG tablet 2.5 mg PO BID acetaminophen 500 mg tablet 1,000 mg PO Q8 Discontinued metoprolol tartrate 100 mg tablet 100 mg PO BID melatonin 3 mg Tablet 3 mg PO QHS PRN PRN (Reason: Insomnia) Qty: 0 0RF sulfamethoxazole-trimethoprim [Bactrim DS] 800-160 mg tablet 1 tab PO BID ergocalciferol (vitamin D2) [Vitamin D2] 1,250 mcg (50,000 unit) capsule 1,250 mcg PO Q7D menthol-zinc oxide [Calmoseptine] 0.44-20.6 % ointment 1 applic topical BID Protocol: *Topical Application Instructions APPLICATION INSTRUCTIONS: coccyx Ensure Plus High Protein 0.08 gram-1.5 kcal/mL liquid 120 ml PO 4X/DAY Referrals / Follow Up: Bárbara Temple MD [Primary Care Provider] - Disposition Disposition (needs filled in before D/C Order can be placed): Home Health Service
[2022-10-09] MEDS: Mirtazapine 15 MG Tablet 7.5 MG PO (20:44)
[2022-10-09] MEDS: Donepezil HCl 5 MG Tablet PO (20:44)
--- NOTE | 2022-10-09 20:45 | NURSING ---
HS meds given per patient request at this time.
[2022-10-10 05:40] LABS: Absolute Lymphocyte Count 1.83 X10^3/uL (0.83-4.51); Absolute Neutrophil Count 4.9 X10^3/uL (2.0-7.7); Basophil# 0.06 X10^3/uL; Basophil% 0.8 % (0-1); Differential Indicated SCAN CRITERIA MET; Eosinophil# 0.38 X10^3/uL; Eosinophils% 4.8 % (0-5); Hematocrit 35.2 % (37-47); Hemoglobin 11.4 g/dL (12.0-15.0); Lymphocyte # 1.83 X10^3/ul (0.83-4.51); Lymphocyte % 23.2 % (19-41); Mean Corp Hgb Conc 32.4 g/dL (32-36); Mean Corpuscular Hgb 34.3 pg (27.0-32.0); Mean Platelet Vol. 10.1 fl (6.2-12.0); Monocyte# 0.68 X10^3/uL; Monocyte% 8.6 % (0-10); NRBC Flagged by Analyzer 0 % (0-5); Neutrophil # 4.93 X10^3/uL (2.7-7.7); Neutrophil % 62.3 % (47-70); POSITIVE MORPHOLOGY YES; Platelet Count 256 K/mm3 (150-450); RBC Distribution Width CV 17.6 % (11.6-14.6); RBC Distribution Width SD 68.3 fl (35.1-43.9); Red Blood Count 3.32 M/mm3 (4.2-5.4); White Blood Count 7.9 K/mm3 (4.4-11.0)
[2022-10-10 06:02] LABS: Anion Gap 5 (5-15); BUN 33 mg/dL (7-18); Calcium,Total 8.9 mg/dL (8.5-10.1); Chloride 106 mmol/L (98-107); Creatinine, Serum 0.87 mg/dL (0.55-1.02); EST Glomerular Filtration Rate 66 mL/min (>60); Est Glom Filt Rate - Afr Amer 80 mL/min (>60); Estimated Creatinine Clearance 37.26 ml/min; Glucose 101 mg/dL (74-106); Potassium 4.7 mmol/L (3.5-5.1); Sodium Level 139 mmol/L (136-145)
[2022-10-10 06:20] LABS: Anisocytosis 1+; Macrocytosis 1+
[2022-10-10 06:32] VITALS: BP 128/73; PULSE 84
[2022-10-10 06:34] VITALS: PULSE 84
[2022-10-10] MEDS: Ensure Plus High Protein 120 ML LIQUID PO ×4 (06:34→20:12)
[2022-10-10] MEDS: Acetaminophen 500 MG Tablet 1000 MG PO ×3 (06:34→20:12)
[2022-10-10] MEDS: APIXABAN 2.5 MG TABLET (WCH) PO ×2 (06:34→17:05)
[2022-10-10] MEDS: Metoprolol Tartrate 100 MG Tablet PO ×2 (06:34→17:05)
[2022-10-10] MEDS: Senna/Docusate Sodium 1 Tablet PO ×2 (06:35→17:05)
[2022-10-10] MEDS: Menthol/Lanolin/Calamine/Znox 113 GM Tube 1 APPLIC TOPICAL ×2 (06:35→17:03)
[2022-10-10 13:50] VITALS: BP 130/59; PULSE 80; RESP 17; TEMP 36.3
--- NOTE | 2022-10-10 15:30 | CASEMGMT ---
Social Work Per staff, pt is requesting to discharge on Saturday instead of Saturday. Phone call to pt and updated. Les spoke with son Steve and both parties feel Saturday discharge is best. Les states he will call pt and let her know. Referrals sent for home health services and [facility] is able to accept. [place] [facility] [place] 3in1 commode. Pt requesting DME be delivered to his home prior to Saturday discharge. [place] [facility] [place] agreeable. Denzel updated that [facility] has accepted pt with start of care on Saturday or Saturday. Denzel states he has been unable to secure additional help at home through private duty agencies but he continues to look and feels he can take pt home on Saturday. All discharge questions answered. Discharge Date: 10/13/22 Discharge Disposition: Home with spouse. [facility] home health PT/OT/SN/JOSE/VIJI Gay
[2022-10-10 17:05] VITALS: BP 130/59; PULSE 80
[2022-10-10] MEDS: Donepezil HCl 5 MG Tablet PO (20:13)
[2022-10-10] MEDS: Mirtazapine 15 MG Tablet 7.5 MG PO (20:13)
[2022-10-11 06:03] VITALS: BP 125/74; PULSE 76
[2022-10-11] MEDS: Acetaminophen 500 MG Tablet 1000 MG PO ×3 (06:03→20:31)
[2022-10-11] MEDS: Metoprolol Tartrate 100 MG Tablet PO ×2 (06:03→17:58)
[2022-10-11] MEDS: APIXABAN 2.5 MG TABLET (WCH) PO ×2 (06:04→17:58)
[2022-10-11] MEDS: Ensure Plus High Protein 120 ML LIQUID PO (06:06)
[2022-10-11] MEDS: Menthol/Lanolin/Calamine/Znox 113 GM Tube 1 APPLIC TOPICAL ×2 (06:07→20:31)
--- NOTE | 2022-10-11 09:56 | MDS.RN ---
Pain interview for PAUL 10/13/22.
[2022-10-11 10:10] VITALS: PULSE 75; RESP 16; O2SAT 98
[2022-10-11 14:39] VITALS: BP 97/53; PULSE 75; RESP 14; TEMP 36; O2SAT 98
[2022-10-11 17:58] VITALS: BP 125/76; PULSE 78
[2022-10-11 18:00] VITALS: BP 125/76; PULSE 78
[2022-10-11] MEDS: Mirtazapine 15 MG Tablet 7.5 MG PO (20:31)
[2022-10-11] MEDS: Donepezil HCl 5 MG Tablet PO (20:31)
[2022-10-12 04:14] VITALS: BP 123/77; PULSE 87
[2022-10-12] MEDS: Metoprolol Tartrate 100 MG Tablet PO ×2 (04:14→17:31)
[2022-10-12] MEDS: Senna/Docusate Sodium 1 Tablet PO (04:14)
[2022-10-12] MEDS: APIXABAN 2.5 MG TABLET (WCH) PO ×2 (04:14→17:31)
[2022-10-12] MEDS: Acetaminophen 500 MG Tablet 1000 MG PO ×3 (04:15→19:46)
[2022-10-12] MEDS: Ensure Plus High Protein 120 ML LIQUID PO ×4 (04:15→19:46)
[2022-10-12] MEDS: Menthol/Lanolin/Calamine/Znox 113 GM Tube 1 APPLIC TOPICAL ×2 (04:17→17:32)
[2022-10-12 04:51] VITALS: BP 123/77; PULSE 87; RESP 17; TEMP 36.5; O2SAT 93
--- NOTE | 2022-10-12 10:42 | CASEMGMT ---
Social Work BIMS and PHQ9 interviews completed on this date for MDS assessment. BIMS score 1215, PHQ9 score 0/27. VIJI Garcia
[2022-10-12 15:57] VITALS: BP 98/53; PULSE 77; RESP 14; TEMP 36.6; O2SAT 95
[2022-10-12 17:31] VITALS: PULSE 72
[2022-10-12 19:36] VITALS: O2SAT 96
[2022-10-12] MEDS: MELATONIN 3 MG TABLET PO (19:46)
[2022-10-12] MEDS: Donepezil HCl 5 MG Tablet PO (19:47)
[2022-10-12] MEDS: Mirtazapine 15 MG Tablet 7.5 MG PO (19:48)
--- NOTE | 2022-10-12 23:20 | PCA ---
This DOUBLE RE[employer]ER OPERATOR went in to get pt. ready for bed PT did wash up but refused to take her clothes off to put pjs on.
[2022-10-13 04:51] VITALS: BP 104/60; PULSE 88
[2022-10-13] MEDS: Acetaminophen 500 MG Tablet 1000 MG PO (04:51)
[2022-10-13] MEDS: Metoprolol Tartrate 100 MG Tablet PO (04:51)
[2022-10-13] MEDS: APIXABAN 2.5 MG TABLET (WCH) PO (04:52)
[2022-10-13] MEDS: Ensure Plus High Protein 120 ML LIQUID PO (04:52)
[2022-10-13] MEDS: Menthol/Lanolin/Calamine/Znox 113 GM Tube 1 APPLIC TOPICAL (04:53)
[2022-10-13 06:33] VITALS: O2SAT 97
[2022-10-13 10:34] VITALS: BP 98/59; PULSE 69; RESP 16; TEMP 36.4; O2SAT 98
== END 2022-10-13 10:50 | disposition home health service (06) | DRG 560 ==
PROVIDERS: Admitting Provider Family Medicine Geriatric Medicine; PCP Internal Medicine; Visit Provider Family Medicine Geriatric Medicine
DX: S72.001D Fracture of unspecified part of neck of right femur, subsequent encounter for closed fracture with routine healing (principal); N39.0 Urinary tract infection, site not specified; F02.80 Dementia in other diseases classified elsewhere, unspecified severity, without behavioral disturbance, psychotic disturbance, mood disturbance, and anxiety; B96.1 Klebsiella pneumoniae [K. pneumoniae] as the cause of diseases classified elsewhere; G30.9 Alzheimer's disease, unspecified; I48.0 Paroxysmal atrial fibrillation; E55.9 Vitamin D deficiency, unspecified; I12.9 Hypertensive chronic kidney disease with stage 1 through stage 4 chronic kidney disease, or unspecified chronic kidney disease; G47.30 Sleep apnea, unspecified; W19.XXXD Unspecified fall, subsequent encounter; N18.9 Chronic kidney disease, unspecified; Z87.891 Personal history of nicotine dependence; Z79.01 Long term (current) use of anticoagulants; Z79.899 Other long term (current) drug therapy
CPT/HCPCS: 36415; 80048; 85014; 85018; 85025; 87426; 87811; 92507; 92523; 97110; 97116; 97162; 97166; 97530; 97535; 97537; 97802